=== PATIENT | female | born 1945 | race Two or more races ===

== ENCOUNTER 2024-05-24 08:52 | Outpatient (RCR) | payer MEDICARE, SELFPAY ==
[2024-05-23 15:12] LABS: Collection Type, Urine Voided
[2024-05-23 15:14] LABS: Basophils % (Auto) 1 % (0-2.5); Eosinophils % (Auto) 0 % (0-10); Hematocrit 29.8 % (36.0-46.0); Hemoglobin 9.7 g/dL (12.0-16.0); Immature Granulocytes % (Auto) 5 % (0-0); Immature Granulocytes Auto 0.17 Thou/mm3 (0.00-0.00); Lymphocytes # (Auto) 1.6 Thou/mm3 (1.0-4.8); Lymphocytes % (Auto) 50 % (10-50); Mean Corpuscular HGB Conc 32.6 g/dl (31.0-37.0); Mean Corpuscular Hemoglobin 31.4 pg (25.0-35.0); Mean Corpuscular Volume 96 fL (80-100); Monocytes # (Auto) 0.3 Thou/mm3 (0.0-0.8); Monocytes % (Auto) 10 % (0-12); Neutrophils # (Auto) 1.1 Thou/mm3 (1.8-7.7); Neutrophils % (Auto) 34 % (37-80); Nucleated Red Blood Cell # 0.07 Thou/mm3 (0.00-0.00); Nucleated Red Blood Cell % 2 /100 WBC (0); Platelet Count 204 Thou/mm3 (140-440); Red Blood Count 3.09 Miln/mm3 (4.00-5.20); White Blood Count 3.3 Thou/mm3 (3.6-11.0)
[2024-05-23 15:20] LABS: Bacteria,Urine 1+; Bilirubin,Urine Negative (Negative); Blood,Urine Negative (Negative); Color,Urine Yellow (Lt Yel-Yel); Glucose, Urine Negative (Negative); Ketones,Urine Negative (Negative); Leukocyte Esterase,Urine Positive (Negative); Nitrite,Urine Negative (Negative); PH,Urine 5.5 (5.0-7.0); Protein,Urine 1+ (Neg - Trace); RBC,Urine 8 /hpf (0-3); Specific Gravity,Urine 1.019 (1.001-1.035); Squamous Epithelial Cell,Urine 8 /hpf (0-5); Urobilinogen,Urine Negative mg/dL (0.0-1.0); WBC,Urine 1072 /hpf (0-5)
[2024-05-23 15:38] LABS: Alanine Aminotransferase 71 U/L (10-49); Albumin, Serum 4.1 gm/dL (3.4-4.8); Albumin/Globulin Ratio 1.5 (1.2-2.2); Alkaline Phosphatase 116 U/L (46-116); Anion Gap 7 (7-16); Aspartate Amino Transferase 94 U/L (0-34); BUN/Creatinine Ratio 13 Ratio (12-20); Bilirubin,Total 0.3 mg/dL (0.3-1.2); Blood Urea Nitrogen 18 mg/dL (9-23); Chloride 102 mMol/L (98-107); Creatinine (Component) 1.4 mg/dL (0.6-1.3); Globulin 2.7 gm/dL (2.3-3.5); Glucose 122 mg/dL (74-106); Osmolality,Calculated 273 (275-295); Potassium 3.8 mMol/L (3.4-5.1); Sodium 135 mMol/L (136-145); Thyroid Stimulating Hormone 7.96 uIU/mL (0.55-4.78); Total Protein 6.8 gm/dL (5.7-8.2); eGFR 39 See Note
[2024-05-23 16:02] LABS: Clarity,Urine Cloudy (Clear/Hazy)
== END 2024-06-16 23:59 | disposition home or self-care (01) ==
LOC: SCTC 08:52
PROVIDERS: PCP Internal Medicine; Referring Provider Internal Medicine; Visit Provider Internal Medicine Hematology & Oncology
DX: C22.1 Intrahepatic bile duct carcinoma (principal); Z85.42 Personal history of malignant neoplasm of other parts of uterus; Z90.710 Acquired absence of both cervix and uterus
CPT/HCPCS: 36591; 80053; 81001; 84443; 85025; 96361; 96374; A4216; J0696; J1642; J7030

== ENCOUNTER 2024-07-12 08:07 | Outpatient (RCR) | payer MEDICARE, SELFPAY ==
[2024-06-20 15:53] LABS: Basophils % (Auto) 1 % (0-2.5); Eosinophils # (Auto) 0.1 Thou/mm3 (0.0-0.5); Eosinophils % (Auto) 1 % (0-10); Hematocrit 34.1 % (36.0-46.0); Hemoglobin 11.1 g/dL (12.0-16.0); Immature Granulocytes % (Auto) 0 % (0-0); Immature Granulocytes Auto 0.01 Thou/mm3 (0.00-0.00); Lymphocytes % (Auto) 31 % (10-50); Mean Corpuscular HGB Conc 32.6 g/dl (31.0-37.0); Mean Corpuscular Hemoglobin 31.3 pg (25.0-35.0); Mean Corpuscular Volume 96 fL (80-100); Monocytes # (Auto) 0.7 Thou/mm3 (0.0-0.8); Monocytes % (Auto) 12 % (0-12); Neutrophils # (Auto) 3.4 Thou/mm3 (1.8-7.7); Neutrophils % (Auto) 55 % (37-80); Nucleated Red Blood Cell % 0 /100 WBC (0); Platelet Count 210 Thou/mm3 (140-440); Red Blood Count 3.55 Miln/mm3 (4.00-5.20); White Blood Count 6.2 Thou/mm3 (3.6-11.0)
[2024-06-20 16:14] LABS: Alanine Aminotransferase 15 U/L (10-49); Albumin, Serum 4.5 gm/dL (3.4-4.8); Albumin/Globulin Ratio 1.6 (1.2-2.2); Alkaline Phosphatase 105 U/L (46-116); Anion Gap 10 (7-16); Aspartate Amino Transferase 51 U/L (0-34); BUN/Creatinine Ratio 14 Ratio (12-20); Bilirubin,Total 0.4 mg/dL (0.3-1.2); Blood Urea Nitrogen 17 mg/dL (9-23); Calcium 9.4 mg/dL (8.3-10.6); Calcium (Corrected) 9.4 mg/dL (8.5-10.1); Carbon Dioxide 28.1 mMol/L (20.0-31.0); Chloride 100 mMol/L (98-107); Creatinine (Component) 1.2 mg/dL (0.6-1.3); Globulin 2.8 gm/dL (2.3-3.5); Glucose 127 mg/dL (74-106); Osmolality,Calculated 279 (275-295); Potassium 3.2 mMol/L (3.4-5.1); Sodium 138 mMol/L (136-145); Thyroid Stimulating Hormone 6.59 uIU/mL (0.55-4.78); Total Protein 7.3 gm/dL (5.7-8.2); eGFR 47 See Note
[2024-06-21 11:40] LABS: Free T4 (Free Thyroxine) 1.11 ng/dL (0.89-1.76)
[2024-07-04 15:58] LABS: Basophils % (Auto) 0 % (0-2.5); Eosinophils # (Auto) 0.1 Thou/mm3 (0.0-0.5); Eosinophils % (Auto) 1 % (0-10); Hematocrit 32.3 % (36.0-46.0); Hemoglobin 10.7 g/dL (12.0-16.0); Immature Granulocytes % (Auto) 1 % (0-0); Immature Granulocytes Auto 0.04 Thou/mm3 (0.00-0.00); Lymphocytes # (Auto) 0.7 Thou/mm3 (1.0-4.8); Lymphocytes % (Auto) 8 % (10-50); Mean Corpuscular HGB Conc 33.1 g/dl (31.0-37.0); Mean Corpuscular Hemoglobin 31.2 pg (25.0-35.0); Mean Corpuscular Volume 94 fL (80-100); Monocytes # (Auto) 0.9 Thou/mm3 (0.0-0.8); Monocytes % (Auto) 11 % (0-12); Neutrophils # (Auto) 6.3 Thou/mm3 (1.8-7.7); Neutrophils % (Auto) 79 % (37-80); Nucleated Red Blood Cell % 0 /100 WBC (0); Platelet Count 163 Thou/mm3 (140-440); RDW Standard Deviation 48.3 fL (36.4-46.3); Red Blood Count 3.43 Miln/mm3 (4.00-5.20)
[2024-07-04 16:21] LABS: Alanine Aminotransferase 19 U/L (10-49); Albumin, Serum 4.4 gm/dL (3.4-4.8); Albumin/Globulin Ratio 1.4 (1.2-2.2); Alkaline Phosphatase 128 U/L (46-116); Anion Gap 9 (7-16); Aspartate Amino Transferase 39 U/L (0-34); BUN/Creatinine Ratio 17 Ratio (12-20); Bilirubin,Total 0.6 mg/dL (0.3-1.2); Blood Urea Nitrogen 22 mg/dL (9-23); Calcium 9.4 mg/dL (8.3-10.6); Calcium (Corrected) 9.4 mg/dL (8.5-10.1); Carbon Dioxide 24.7 mMol/L (20.0-31.0); Chloride 98 mMol/L (98-107); Creatinine (Component) 1.3 mg/dL (0.6-1.3); Free T4 (Free Thyroxine) 1.22 ng/dL (0.89-1.76); Globulin 3.2 gm/dL (2.3-3.5); Glucose 94 mg/dL (74-106); Osmolality,Calculated 267 (275-295); Potassium 3.6 mMol/L (3.4-5.1); Sodium 132 mMol/L (136-145); Thyroid Stimulating Hormone 6.74 uIU/mL (0.55-4.78); Total Protein 7.6 gm/dL (5.7-8.2); eGFR 42 See Note
[2024-07-10 09:22] LABS: Basophils % (Auto) 1 % (0-2.5); Eosinophils # (Auto) 0.1 Thou/mm3 (0.0-0.5); Eosinophils % (Auto) 1 % (0-10); Hematocrit 29.2 % (36.0-46.0); Hemoglobin 9.5 g/dL (12.0-16.0); Immature Granulocytes % (Auto) 0 % (0-0); Immature Granulocytes Auto 0.01 Thou/mm3 (0.00-0.00); Lymphocytes # (Auto) 0.4 Thou/mm3 (1.0-4.8); Lymphocytes % (Auto) 11 % (10-50); Mean Corpuscular HGB Conc 32.5 g/dl (31.0-37.0); Mean Corpuscular Hemoglobin 30.7 pg (25.0-35.0); Mean Corpuscular Volume 95 fL (80-100); Monocytes # (Auto) 0.1 Thou/mm3 (0.0-0.8); Monocytes % (Auto) 2 % (0-12); Neutrophils # (Auto) 3.4 Thou/mm3 (1.8-7.7); Neutrophils % (Auto) 84 % (37-80); Nucleated Red Blood Cell % 0 /100 WBC (0); Platelet Count 202 Thou/mm3 (140-440); RDW Standard Deviation 47.4 fL (36.4-46.3); Red Blood Count 3.09 Miln/mm3 (4.00-5.20)
[2024-07-10 09:40] LABS: Alanine Aminotransferase 22 U/L (10-49); Albumin, Serum 3.9 gm/dL (3.4-4.8); Albumin/Globulin Ratio 1.3 (1.2-2.2); Alkaline Phosphatase 123 U/L (46-116); Anion Gap 9 (7-16); Aspartate Amino Transferase 35 U/L (0-34); BUN/Creatinine Ratio 15 Ratio (12-20); Bilirubin,Total 0.6 mg/dL (0.3-1.2); Blood Urea Nitrogen 17 mg/dL (9-23); Calcium 9.2 mg/dL (8.3-10.6); Calcium (Corrected) 9.3 mg/dL (8.5-10.1); Carbon Dioxide 27.5 mMol/L (20.0-31.0); Chloride 99 mMol/L (98-107); Creatinine (Component) 1.1 mg/dL (0.6-1.3); Free T4 (Free Thyroxine) 1.35 ng/dL (0.89-1.76); Glucose 104 mg/dL (74-106); Osmolality,Calculated 271 (275-295); Potassium 3.6 mMol/L (3.4-5.1); Sodium 135 mMol/L (136-145); Thyroid Stimulating Hormone 3.79 uIU/mL (0.55-4.78); Total Protein 6.9 gm/dL (5.7-8.2); eGFR 52 See Note
== END 2024-07-17 23:59 | disposition home or self-care (01) ==
LOC: SCTC 08:07
PROVIDERS: PCP Internal Medicine; Referring Provider Internal Medicine; Visit Provider Internal Medicine Hematology & Oncology
DX: C22.1 Intrahepatic bile duct carcinoma (principal); Z85.42 Personal history of malignant neoplasm of other parts of uterus; Z90.710 Acquired absence of both cervix and uterus; I10 Essential (primary) hypertension; M19.90 Unspecified osteoarthritis, unspecified site
CPT/HCPCS: 36591; 80053; 84439; 84443; 85025; 96367; 96413; 96417; A4216; J1100; J1642; J2405; J3490; J7040; J7050; J9173; J9201

== ENCOUNTER 2024-07-30 13:34 | Outpatient (RCR) | payer MEDICARE, SELFPAY ==
[2024-07-25 16:14] LABS: Basophils % (Auto) 1 % (0-2.5); Eosinophils % (Auto) 1 % (0-10); Hematocrit 29.7 % (36.0-46.0); Hemoglobin 9.7 g/dL (12.0-16.0); Immature Granulocytes % (Auto) 0 % (0-0); Immature Granulocytes Auto 0.01 Thou/mm3 (0.00-0.00); Lymphocytes # (Auto) 0.6 Thou/mm3 (1.0-4.8); Lymphocytes % (Auto) 13 % (10-50); Mean Corpuscular HGB Conc 32.7 g/dl (31.0-37.0); Mean Corpuscular Hemoglobin 31.3 pg (25.0-35.0); Mean Corpuscular Volume 96 fL (80-100); Monocytes # (Auto) 0.7 Thou/mm3 (0.0-0.8); Monocytes % (Auto) 17 % (0-12); Neutrophils # (Auto) 2.9 Thou/mm3 (1.8-7.7); Neutrophils % (Auto) 69 % (37-80); Nucleated Red Blood Cell % 0 /100 WBC (0); Platelet Count 235 Thou/mm3 (140-440); RDW Standard Deviation 51.3 fL (36.4-46.3); White Blood Count 4.3 Thou/mm3 (3.6-11.0)
[2024-07-25 16:39] LABS: Alanine Aminotransferase 13 U/L (10-49); Albumin/Globulin Ratio 1.3 (1.2-2.2); Alkaline Phosphatase 147 U/L (46-116); Anion Gap 9 (7-16); Aspartate Amino Transferase 34 U/L (0-34); BUN/Creatinine Ratio 12 Ratio (12-20); Bilirubin,Total 0.4 mg/dL (0.3-1.2); Blood Urea Nitrogen 16 mg/dL (9-23); Calcium 9.1 mg/dL (8.3-10.6); Calcium (Corrected) 9.1 mg/dL (8.5-10.1); Carbon Dioxide 27.8 mMol/L (20.0-31.0); Chloride 100 mMol/L (98-107); Creatinine (Component) 1.3 mg/dL (0.6-1.3); Glucose 117 mg/dL (74-106); Osmolality,Calculated 276 (275-295); Potassium 3.6 mMol/L (3.4-5.1); Sodium 137 mMol/L (136-145); Thyroid Stimulating Hormone 2.32 uIU/mL (0.55-4.78); eGFR 42 See Note
--- NOTE | 2024-07-30 22:10 | CTCFLWUP_ITS ---
Patient: NAKIA FIELD : 1945 Page 2 of 3 FOLLOW UP NOTE DATE OF SERVICE: 07/30/2024 NAME: NAKIA FIELD ACCOUNT: [id number] : 1945 AGE: 79 INTERVAL HISTORY: Patient is here to follow-up along with her daughter. Patient is doing well have no complaints. Pat jeremie sleeps most of the time per her daughter. Patient does not like to go out or interact and stays mostly in her bedroom. ONCOLOGY HISTORY: DIAGNOSIS: Secondary malignant neoplasm of liver and intrahepatic bile duct [ICD10] C78.7 DATE OF DIAGNOSIS: 06/20/2023 Cholangiocarcinoma STAGE/TNM: Locally advanced hepatocellular cancer TREATMENT HISTORY: Care?Plan Start?Date Cycle Day Intent Durvalumab,?cisplatin?and?gemcitabine?cholangiocarcinoma?regimen?1 12/07/2023 1 Palliative Durvalumab?maintenance?cholangiocarcinoma?regimen?2 07/26/2024 1 28 Maintenance HISTORY OF PRESENT ILLNESS: Nakia Field is a 79-year-old ENG speaking female with history of hypertension as well as arthritis, uterine cancer about 15 years ago, status post hysterectomy at that time has the follow ing oncology history. 05/12/2023: Ms. Field had abdominal ultrasound to evaluate the cause for recurrent UTIs. 06/30/2023: MRI of the abdomen with and without IV contrast 08/12/2023: CT-guided right hepatic lobe biopsy? 09/06/2023: Tumor markers? 09/22/2023: PET CT scan done 09/27/2023: EGD and colonoscopy 10/12/2023: Bilateral breast ultrasound 11/03/2023: CT-guided biopsy of the right lobe liver lesion 11/11/2023: Cancer type ID 12/07/2023: Ms. Field is started on durvalumab, cisplatin and gemcitabine chemotherapy. 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 calcium carbonate-vitamin D3 - 200 mg (500 mg) -400 unit 1 tab Twice a Day 2. conjugated estrogens - 0.625 mg/gram 0.5 gm every 2-3 days 3. Lomotil - 2.5-0.025 mg 1 tab one po four times a day prn diarrhea 4. magnesium oxide - 200 mg magnesium 2 tab Daily 5. Slo-Mag - 1 Daily 6. Synthroid - Daily Medications Last Reconciled by Antonia Marinelli RN on 07/30/2024 ALLERGIES: ciprofloxacin REVIEW OF SYSTEMS: A complete 14-point review of systems was performed and is negative except as noted in interval histo ry. PHYSICAL EXAMINATION: VITAL SIGNS: Temperature?99, B/P?113/70, Oxygen?Saturation?98% Weight?130?lbs (Change?since?07/26/24:?- 1.2?lbs) PAIN: 0 - No pain ECOG Performance Status: 3 - Symptomatic; limited self-care; spends >50% of time in bed, not bedridde n EYE: Conjunctivae is white MOUTH: Oral cavity is dry. CHEST: Clear to auscultation. No wheezes or rales audible. CARDIAC: Rhythm regular, no murmurs or gallops present. ABDOMEN: Soft. No hepatomegaly. No splenomegaly. No masses palpable in the right upper quadrant of t he abdomen EXTREMITIES: No pedal edema or cyanosis. LABORATORY DATA: I have personally reviewed and interpreted each of the patient?s relevant lab tests, abnormal finding s are below: Date 07/25/24 ??GLUCOSE,RANDOM?(mg/dL) 117?H ??BLOOD?UREA?NITROGEN?(mg/dL) 16 ??CREATININE?(mg/dL) 1.30 ??SODIUM?(mmol/L) 137 ??POTASSIUM?(mmol/L) 3.6 ??CHLORIDE?(mmol/L) 100 ??CrCl?(CandG)?(ml/min) 33.94 ??AST/SGOT?(Unit/L) 34 ??ALT/SGPT?(Unit/L) 13 ??ALKALINE?PHOSPHATASE?(Unit/L) 147?H ??BILIRUBIN,?TOTAL?(mg/dL) 0.4 ??PROTEIN?TOTAL?(gm/dl) 7.0 ??ALBUMIN,?SERUM?(gm/dl) 4.0 ??GLOBULIN?(gm/dl) 3.0 ??ALBUMIN/GLOBULIN?RATIO 1.3 ??CALCIUM,?SERUM?(mg/dL) 9.1 ??CALCIUM?SERUM?(CORRECTED)?(mg/dL) 9.1 ASSESSMENT/PLAN: #1 cholangiocarcinoma Patient has metastatic cholangiocarcinoma She was initially started on cisplatin gemcitabine and durvalumab Cisplatin held after patient have symptoms concerning for worsening neuropathy that his dizziness and vertigo symptoms Patient completed chemoembolization. Most likely cholangiocarcinoma confined to the liver. Tumor markers are in the normal range. PET/CT scan shows hypermetabolic liver lesion. Plan Continue durvalumab MRI is already ordered we will follow-up on the results #2 history of uterine cancer about 50 years ago. Ms. Field had hysterectomy at that time. #3 hypertension well-controlled follow with PCP. #4 osteoarthritis stable follow-up with PCP. #5 dementia like symptoms Will get a brain MRI B12 folic acid iron studies vitamin D level ORDERS: Brain MRI B12 folic acid iron studies 2 to 3 weeks with the results RETURN TO CLINIC: BILLING AND COMPLIANCE: I reviewed external records from providers outside my specialty as summarized above. I spent a total of 50 minutes on this patient?s care on the day of their visit excluding time spent related to any bi lled procedures. This time includes time spent with the patient as well as time spent documenting in the medical record, reviewing patients records and tests, obtaining history, placing orders, communi cating with other healthcare professionals, counseling the patient, family or caregiver, and/or care coordination for the diagnoses above. Electronically Signed by: David Austin MD T: 10:07 PM CC: PCP: Félix Delgado Referring: Félix Delgado This document was completed utilizing speech recognition software. Grammatical errors, random word in sertions, pronoun errors, and incomplete sentences are an occasional consequence of this system due t o software limitations, ambient noise, and hardware issues. Any formal questions or concerns about th e content, text or information contained within the body of this dictation should be directly address ed to the provider for clarification.
== END 2024-08-17 23:59 | disposition home or self-care (01) ==
LOC: SCTC 13:34
PROVIDERS: PCP Internal Medicine; Referring Provider Internal Medicine; Visit Provider Internal Medicine Hematology & Oncology
DX: Z51.11 Encounter for antineoplastic chemotherapy (principal); C22.1 Intrahepatic bile duct carcinoma; Z85.42 Personal history of malignant neoplasm of other parts of uterus; Z90.710 Acquired absence of both cervix and uterus; I10 Essential (primary) hypertension; M19.90 Unspecified osteoarthritis, unspecified site
CPT/HCPCS: 36591; 80053; 84443; 85025; 96367; 96413; 99212; A4216; J1642; J2405; J9173; G0463

== ENCOUNTER → 2024-07-30 | Outpatient (CLI) | payer MEDICARE, SELFPAY ==
[2024-07-30 16:40] LABS: Thyroid Stimulating Hormone 4.27 uIU/mL (0.55-4.78)
[2024-07-30 19:22] LABS: Vitamin B12 461 pg/mL (211-911)
[2024-07-30 20:56] LABS: Ferritin 229 ng/mL (7.3-270.7); Iron 39 mcg/dL (50-170); Percent Iron Saturation 12 % (20-55); Total Iron Binding Capacity 310 mcg/dL (250-425); Unsaturated Iron Binding 271 (225-295)
[2024-08-06 06:56] LABS: T3,Total* 128 ng/dL (76-181); Vitamin D, 25-OH, D2 10 ng/mL; Vitamin D, 25-OH, D3 19 ng/mL; Vitamin D, 25-OH, Total 29 ng/mL (30-100)
== END | disposition home or self-care (01) ==
LOC: SCTO 15:07
PROVIDERS: PCP Internal Medicine; Referring Provider Internal Medicine Hematology & Oncology; Visit Provider Internal Medicine Hematology & Oncology
DX: C78.7 Secondary malignant neoplasm of liver and intrahepatic bile duct (principal)
CPT/HCPCS: 36415; 82306; 82607; 82728; 82746; 83540; 83550; 84443; 84480

== ENCOUNTER → 2024-08-22 | Outpatient (CLI) | payer MEDICARE, SELFPAY ==
--- NOTE | 2024-08-22 08:45 | XR_ITS ---
Examination: MRI of brain without intravenous contrast. MRI brain with intravenous contrast. Date and time of exam:August 22, 2024 0853 hours Comparison June 07, 2018 INDICATIONS: Diagnosis secondary malignant neoplasm liver and intrahepatic bile ducts, headaches blurred vision beginning one year ago Technique: Multiple axial and sagittal images of the brain to been obtained. Siemens high-resolution 1.52 [place]ita short bore scanner utilized. Sagittal sections, T1 weighted images, TR 500, TE 14, are performed. Axial sections proton-density and T2-weighted images have been obtained. Inversion recovery axial images, TR 9260, TE 111, TR 2500. Diffusion weighted images, axial sections, TR 4800, TE 128, B value 1000. Axial sections, ADC map, TR 4800, TE 128. Axial and coronal images were also obtained post 11 cc gadolinium administered intravenously. Findings:: Enlargement of the sella turcica is not present. The optic chiasm and infundibular stalk are not remarkable. There is no localized enlargement of the medulla or julia. Fourth ventricle and cerebellar tonsils appear normal in position. No subacute area of hemorrhage density is seen. Fourth ventricle is midline. Mass in the cerebellopontine angle region is not evident. 7th and 8th nerve complexes exhibit symmetry Globes are symmetrical Orbital musculature including medial lateral rectus muscles do not exhibit abnormality Increased white matter signal is moderate Effacement of the cortical sulcal markings is not identified. Mass effect upon the ventricular system is not identified. Diffusion-weighted images demonstrate no focus of restricted diffusion Contrast images demonstrate no abnormal enhancing cerebellar or cerebral lesions Impression: Negative for acute hemorrhage mass effect or midline shift No acute infarct Moderate chronic microvascular white matter change No abnormal enhancing cerebellar or cerebral lesions
== END | disposition home or self-care (01) ==
LOC: SMRI 08:03
PROVIDERS: PCP Internal Medicine; Referring Provider Internal Medicine Hematology & Oncology; Visit Provider Internal Medicine Hematology & Oncology
DX: R90.82 White matter disease, unspecified (principal); C78.7 Secondary malignant neoplasm of liver and intrahepatic bile duct
CPT/HCPCS: 70553; A9579

== ENCOUNTER 2024-09-12 09:14 | Outpatient (RCR) | payer MEDICARE, SELFPAY ==
[2024-08-22 09:05] LABS: Basophils % (Auto) 1 % (0-2.5); Eosinophils # (Auto) 0.2 Thou/mm3 (0.0-0.5); Eosinophils % (Auto) 3 % (0-10); Hematocrit 32.3 % (36.0-46.0); Hemoglobin 10.4 g/dL (12.0-16.0); Immature Granulocytes % (Auto) 0 % (0-0); Immature Granulocytes Auto 0.01 Thou/mm3 (0.00-0.00); Lymphocytes % (Auto) 19 % (10-50); Mean Corpuscular HGB Conc 32.2 g/dl (31.0-37.0); Mean Corpuscular Hemoglobin 30.1 pg (25.0-35.0); Mean Corpuscular Volume 93 fL (80-100); Monocytes # (Auto) 0.6 Thou/mm3 (0.0-0.8); Monocytes % (Auto) 12 % (0-12); Neutrophils # (Auto) 3.5 Thou/mm3 (1.8-7.7); Neutrophils % (Auto) 66 % (37-80); Nucleated Red Blood Cell % 0 /100 WBC (0); Platelet Count 233 Thou/mm3 (140-440); RDW Standard Deviation 46.1 fL (36.4-46.3); Red Blood Count 3.46 Miln/mm3 (4.00-5.20); White Blood Count 5.3 Thou/mm3 (3.6-11.0)
[2024-08-22 09:29] LABS: Alanine Aminotransferase 10 U/L (10-49); Albumin, Serum 3.9 gm/dL (3.4-4.8); Albumin/Globulin Ratio 1.2 (1.2-2.2); Alkaline Phosphatase 158 U/L (46-116); Anion Gap 10 (7-16); Aspartate Amino Transferase 26 U/L (0-34); BUN/Creatinine Ratio 14 Ratio (12-20); Bilirubin,Total 0.5 mg/dL (0.3-1.2); Blood Urea Nitrogen 15 mg/dL (9-23); Calcium 9.2 mg/dL (8.3-10.6); Calcium (Corrected) 9.3 mg/dL (8.5-10.1); Carbon Dioxide 25.9 mMol/L (20.0-31.0); Chloride 104 mMol/L (98-107); Creatinine (Component) 1.1 mg/dL (0.6-1.3); Globulin 3.3 gm/dL (2.3-3.5); Glucose 100 mg/dL (74-106); Osmolality,Calculated 280 (275-295); Potassium 3.2 mMol/L (3.4-5.1); Sodium 140 mMol/L (136-145); Thyroid Stimulating Hormone 2.19 uIU/mL (0.55-4.78); Total Protein 7.2 gm/dL (5.7-8.2); eGFR 52 See Note
[2024-08-29 14:15] LABS: Basophils % (Auto) 1 % (0-2.5); Eosinophils # (Auto) 0.1 Thou/mm3 (0.0-0.5); Eosinophils % (Auto) 1 % (0-10); Hematocrit 32.8 % (36.0-46.0); Hemoglobin 10.6 g/dL (12.0-16.0); Immature Granulocytes % (Auto) 0 % (0-0); Immature Granulocytes Auto 0.01 Thou/mm3 (0.00-0.00); Lymphocytes % (Auto) 19 % (10-50); Mean Corpuscular HGB Conc 32.3 g/dl (31.0-37.0); Mean Corpuscular Hemoglobin 29.9 pg (25.0-35.0); Mean Corpuscular Volume 93 fL (80-100); Monocytes # (Auto) 0.5 Thou/mm3 (0.0-0.8); Monocytes % (Auto) 10 % (0-12); Neutrophils # (Auto) 3.5 Thou/mm3 (1.8-7.7); Neutrophils % (Auto) 69 % (37-80); Nucleated Red Blood Cell % 0 /100 WBC (0); Platelet Count 223 Thou/mm3 (140-440); RDW Standard Deviation 46.1 fL (36.4-46.3); Red Blood Count 3.54 Miln/mm3 (4.00-5.20)
[2024-08-29 14:43] LABS: Free T3 2.4 pg/mL (2.3-4.2)
[2024-08-29 14:46] LABS: Folate 13.22 ng/mL (>5.38); Vitamin B12 527 pg/mL (211-911)
[2024-08-29 14:49] LABS: Ferritin 77 ng/mL (7.3-270.7); Iron 45 mcg/dL (50-170); Percent Iron Saturation 14 % (20-55); Total Iron Binding Capacity 306 mcg/dL (250-425); Unsaturated Iron Binding 261 (225-295)
[2024-08-29 14:53] LABS: Alanine Aminotransferase < 7 U/L (10-49); Albumin, Serum 3.7 gm/dL (3.4-4.8); Albumin/Globulin Ratio 1.2 (1.2-2.2); Alkaline Phosphatase 145 U/L (46-116); Anion Gap 8 (7-16); Aspartate Amino Transferase 22 U/L (0-34); BUN/Creatinine Ratio 15 Ratio (12-20); Bilirubin,Total 0.4 mg/dL (0.3-1.2); Blood Urea Nitrogen 18 mg/dL (9-23); Calcium (Corrected) 9.2 mg/dL (8.5-10.1); Carbon Dioxide 26.6 mMol/L (20.0-31.0); Chloride 101 mMol/L (98-107); Creatinine (Component) 1.2 mg/dL (0.6-1.3); Globulin 3.2 gm/dL (2.3-3.5); Glucose 147 mg/dL (74-106); Osmolality,Calculated 276 (275-295); Potassium 3.3 mMol/L (3.4-5.1); Sodium 136 mMol/L (136-145); Thyroid Stimulating Hormone 1.52 uIU/mL (0.55-4.78); Total Protein 6.9 gm/dL (5.7-8.2); eGFR 47 See Note
--- NOTE | 2024-09-16 15:54 | CTCFLWUP_ITS ---
Patient: NAKIA FIELD : 1945 Page 6 of 8 FOLLOW UP NOTE DATE OF SERVICE: 08/30/2024 NAME: NAKIA FIELD ACCOUNT: [id number] : 1945 AGE: 79 INTERVAL HISTORY: Patient is here to follow-up along with her daughter. Patient is doing well have no complaints. Patient sleeps most of the time per her daughter. Patient does not like to go out or interact and stays mostly in her bedroom. ONCOLOGY HISTORY: DIAGNOSIS: Secondary malignant neoplasm of liver and intrahepatic bile duct [ICD10] C78.7 DATE OF DIAGNOSIS: 06/20/2023 Cholangiocarcinoma STAGE/TNM: Locally advanced hepatocellular cancer TREATMENT HISTORY: Care?Plan Start?Date Cycle Day Intent Durvalumab,?cisplatin?and?gemcitabine?cholangiocarcinoma?regimen?1 12/07/2023 1 Palliative Durvalumab?maintenance?cholangiocarcinoma?regimen?2 07/26/2024 1 28 Maintenance HISTORY OF PRESENT ILLNESS: Nakia Field is a 79-year-old ENG speaking female with history of hypertension as well as arthritis, uterine cancer about 15 years ago, status post hysterectomy at that time has the following oncology history. 05/12/2023: Ms. Field had abdominal ultrasound to evaluate the cause for recurrent UTIs. 06/30/2023: MRI of the abdomen with and without IV contrast 08/12/2023: CT-guided right hepatic lobe biopsy? 09/06/2023: Tumor markers? 09/22/2023: PET CT scan done 09/27/2023: EGD and colonoscopy 10/12/2023: Bilateral breast ultrasound 11/03/2023: CT-guided biopsy of the right lobe liver lesion 11/11/2023: Cancer type ID 12/07/2023: Ms. Field is started on durvalumab, cisplatin and gemcitabine chemotherapy. 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 Tobacco?Use:?Denies ETOH?Use:?Denies Drug?Note:?Denies Social History Note:?Lives alone - daughters stay frequently [employer] HISTORY: Menarche?-?Age:?12 Menopause:?1975 :?6 Live?Births:?4 Age?1st?:?24 MEDICATIONS: 1. calcium carbonate-vitamin D3 - 200 mg (500 mg) -400 unit 1 tab Twice a Day 2. conjugated estrogens - 0.625 mg/gram 0.5 gm every 2-3 days 3. levothyroxine - 50 mcg 1 Capsule Daily 4. Lomotil - 2.5-0.025 mg 1 tab one po four times a day prn diarrhea 5. magnesium oxide - 200 mg magnesium 2 tab Daily 6. Slo-Mag - 1 Daily Medications Last Reconciled by Britni Barros MA on 08/30/2024 ALLERGIES: ciprofloxacin REVIEW OF SYSTEMS: A complete 14-point review of systems was performed and is negative except as noted in interval history. PHYSICAL EXAMINATION: VITAL SIGNS: Temperature?98.2, B/P?138/78, Oxygen?Saturation?97% Weight?132.4?lbs (Change?since?08/29/24:?2.4?lbs) PAIN: 0 - No pain EYE: Conjunctivae is white MOUTH: Oral cavity is dry. CHEST: Clear to auscultation. No wheezes or rales audible. CARDIAC: Rhythm regular, no murmurs or gallops present. ABDOMEN: Soft. No hepatomegaly. No splenomegaly. No masses palpable in the right upper quadrant of the abdomen EXTREMITIES: No pedal edema or cyanosis. LABORATORY DATA: I have personally reviewed and interpreted each of the patient?s relevant lab tests, abnormal findings are below: Date 08/29/24 ??WHITE?BLOOD?COUNT?(Thou/mm3) 5.0 ??RED?BLOOD?COUNT?(Miln/mm3) 3.54?L ??HEMOGLOBIN?(gm/dl) 10.6?L ??HEMATOCRIT?(%) 32.8?L ??PLATELET?COUNT?(Thou/mm3) 223 ??NEUTROPHILS?%,?AUTO?(%) 69 ??LYMPH?%,?AUTO?(%) 19 ??NEUTROPHILS,?AUTO?(Thou/mm3) 3.5 Mri 08/22/2024 Negative for acute hemorrhage mass effect or midline shift No acute infarct Moderate chronic microvascular white matter change No abnormal enhancing cerebellar or cerebral lesions 08/27/2024 ASSESSMENT/PLAN: #1 cholangiocarcinoma Patient has metastatic cholangiocarcinoma She was initially started on cisplatin gemcitabine and durvalumab Cisplatin held after patient have symptoms concerning for worsening neuropathy that his dizziness and vertigo symptoms Patient completed chemoembolization. Most likely cholangiocarcinoma confined to the liver. Tumor markers are in the normal range. PET/CT scan shows hypermetabolic liver lesion. Ct scan shows persistant lesion but no progress Cotn durvalumab and follow on markers . Will repeat scan in 2 months #2 history of uterine cancer about 50 years ago. Ms. Field had hysterectomy at that time. #3 hypertension well-controlled follow with PCP. #4 osteoarthritis stable follow-up with PCP. #5 dementia like symptoms- mri shows microvascular changes . no masses or bleeding or ischameia B12 folic acid iron studies vitamin D ORDERS: Bc,cmp,afp,ca19-9 RETURN TO CLINIC: 2 months BILLING AND COMPLIANCE: I reviewed external records from providers outside my specialty as summarized above. I spent a total of 50 minutes on this patient?s care on the day of their visit excluding time spent related to any billed procedures. This time includes time spent with the patient as well as time spent documenting in the medical record, reviewing patients records and tests, obtaining history, placing orders, communicating with other healthcare professionals, counseling the patient, family or caregiver, and/or care coordination for the diagnoses above. Electronically Signed by: David Austin MD T: 3:52 PM CC: PCP: David Austin Referring: David Austin This document was completed utilizing speech recognition software. Grammatical errors, random word insertions, pronoun errors, and incomplete sentences are an occasional consequence of this system due to software limitations, ambient noise, and hardware issues. Any formal questions or concerns about the content, text or information contained within the body of this dictation should be directly addressed to the provider for clarification.
== END 2024-09-14 23:59 | disposition home or self-care (01) ==
LOC: SCTC 09:14
PROVIDERS: PCP Internal Medicine; Referring Provider Internal Medicine Hematology & Oncology; Visit Provider Internal Medicine Hematology & Oncology
DX: Z51.11 Encounter for antineoplastic chemotherapy (principal); C22.1 Intrahepatic bile duct carcinoma; Z85.42 Personal history of malignant neoplasm of other parts of uterus; I10 Essential (primary) hypertension; Z90.710 Acquired absence of both cervix and uterus; M19.90 Unspecified osteoarthritis, unspecified site
CPT/HCPCS: 36591; 80053; 82607; 82728; 82746; 83540; 83550; 84443; 84481; 85025; 96367; 96413; 99212; A4216; J1642; J2405; J7050; J9173; G0463

== ENCOUNTER 2024-09-20 09:05 | Outpatient (RCR) | payer MEDICARE, SELFPAY ==
[2024-09-19 12:18] LABS: Basophils % (Auto) 1 % (0-2.5); Eosinophils # (Auto) 0.1 Thou/mm3 (0.0-0.5); Eosinophils % (Auto) 2 % (0-10); Hematocrit 35.8 % (36.0-46.0); Hemoglobin 11.4 g/dL (12.0-16.0); Immature Granulocytes % (Auto) 0 % (0-0); Immature Granulocytes Auto 0.01 Thou/mm3 (0.00-0.00); Lymphocytes # (Auto) 1.4 Thou/mm3 (1.0-4.8); Lymphocytes % (Auto) 27 % (10-50); Mean Corpuscular HGB Conc 31.8 g/dl (31.0-37.0); Mean Corpuscular Hemoglobin 28.7 pg (25.0-35.0); Mean Corpuscular Volume 90 fL (80-100); Monocytes # (Auto) 0.5 Thou/mm3 (0.0-0.8); Monocytes % (Auto) 10 % (0-12); Neutrophils # (Auto) 3.1 Thou/mm3 (1.8-7.7); Neutrophils % (Auto) 60 % (37-80); Nucleated Red Blood Cell % 0 /100 WBC (0); Platelet Count 201 Thou/mm3 (140-440); RDW Standard Deviation 45.1 fL (36.4-46.3); Red Blood Count 3.97 Miln/mm3 (4.00-5.20); White Blood Count 5.2 Thou/mm3 (3.6-11.0)
[2024-09-19 12:56] LABS: Alanine Aminotransferase 10 U/L (10-49); Albumin, Serum 3.9 gm/dL (3.4-4.8); Albumin/Globulin Ratio 1.2 (1.2-2.2); Alkaline Phosphatase 141 U/L (46-116); Anion Gap 10 (7-16); Aspartate Amino Transferase 41 U/L (0-34); BUN/Creatinine Ratio 13 Ratio (12-20); Bilirubin,Total 0.4 mg/dL (0.3-1.2); Blood Urea Nitrogen 13 mg/dL (9-23); Calcium 9.4 mg/dL (8.3-10.6); Calcium (Corrected) 9.5 mg/dL (8.5-10.1); Carbon Dioxide 26.8 mMol/L (20.0-31.0); Chloride 103 mMol/L (98-107); Globulin 3.3 gm/dL (2.3-3.5); Glucose 92 mg/dL (74-106); Osmolality,Calculated 279 (275-295); Potassium 3.7 mMol/L (3.4-5.1); Sodium 140 mMol/L (136-145); Thyroid Stimulating Hormone 2.36 uIU/mL (0.55-4.78); Total Protein 7.2 gm/dL (5.7-8.2); eGFR 58 See Note
== END 2024-10-15 23:59 | disposition home or self-care (01) ==
LOC: SCTC 09:05
PROVIDERS: PCP Internal Medicine; Referring Provider Internal Medicine; Visit Provider Internal Medicine Hematology & Oncology
DX: Z51.11 Encounter for antineoplastic chemotherapy (principal); C22.1 Intrahepatic bile duct carcinoma; Z85.42 Personal history of malignant neoplasm of other parts of uterus; Z90.710 Acquired absence of both cervix and uterus; I10 Essential (primary) hypertension; F03.90 Unspecified dementia, unspecified severity, without behavioral disturbance, psychotic disturbance, mood disturbance, and anxiety; M19.90 Unspecified osteoarthritis, unspecified site
CPT/HCPCS: 36591; 80053; 84443; 85025; 96367; 96413; A4216; J1642; J2405; J7050; J9173

== ENCOUNTER → 2024-10-08 | Outpatient (BNVA) | payer MEDICARE, SELFPAY | END | disposition home or self-care (01) | PROVIDERS: PCP Internal Medicine; Referring Provider Internal Medicine; Visit Provider Urology | DX: N39.46 Mixed incontinence (principal); I12.9 Hypertensive chronic kidney disease with stage 1 through stage 4 chronic kidney disease, or unspecified chronic kidney disease; N18.2 Chronic kidney disease, stage 2 (mild); M79.7 Fibromyalgia; E03.9 Hypothyroidism, unspecified; E78.2 Mixed hyperlipidemia; C22.9 Malignant neoplasm of liver, not specified as primary or secondary; Z92.21 Personal history of antineoplastic chemotherapy; Z92.3 Personal history of irradiation | CPT/HCPCS: 81003; 99212; G0463 ==

== ENCOUNTER 2024-11-14 15:24 | Outpatient (RCR) | payer MEDICARE, SELFPAY ==
--- NOTE | 2024-10-16 22:26 | CTCFLWUP_ITS ---
Patient: NAKIA FIELD : 1945 Page 6 of 8 FOLLOW UP NOTE DATE OF SERVICE: 10/16/2024 NAME: NAKIA FIELD ACCOUNT: [id number] : 1945 AGE: 79 INTERVAL HISTORY: Patient is here to follow-up along with her daughter. Patient have mild discomfort in the right upper quadrant. Patient is not taking anything for pain. Patient sleeps most of the time per her daughter. Patient does not like to go out or interact and stays mostly in her bedroom. ONCOLOGY HISTORY: DIAGNOSIS: Secondary malignant neoplasm of liver and intrahepatic bile duct [ICD10] C78.7 DATE OF DIAGNOSIS: 06/20/2023 Cholangiocarcinoma STAGE/TNM: Locally advanced hepatocellular cancer TREATMENT HISTORY: Care?Plan Start?Date Cycle Day Intent Durvalumab,?cisplatin?and?gemcitabine?cholangiocarcinoma?regimen?1 12/07/2023 1 Palliative Durvalumab?maintenance?cholangiocarcinoma?regimen?2 07/26/2024 1 28 Maintenance HISTORY OF PRESENT ILLNESS: Nakia Field is a 79-year-old ENG speaking female with history of hypertension as well as arthritis, uterine cancer about 15 years ago, status post hysterectomy at that time has the following oncology history. 05/12/2023: Ms. Field had abdominal ultrasound to evaluate the cause for recurrent UTIs. 06/30/2023: MRI of the abdomen with and without IV contrast 08/12/2023: CT-guided right hepatic lobe biopsy? 09/06/2023: Tumor markers? 09/22/2023: PET CT scan done 09/27/2023: EGD and colonoscopy 10/12/2023: Bilateral breast ultrasound 11/03/2023: CT-guided biopsy of the right lobe liver lesion 11/11/2023: Cancer type ID 12/07/2023: Ms. Field is started on durvalumab, cisplatin and gemcitabine chemotherapy. 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 Education?Level:?Completed High School Marital?Status:? Tobacco?Use:?Denies ETOH?Use:?Denies Drug?Note:?Denies Social History Note:?Lives alone - daughters stay frequently [employer] HISTORY: Menarche?-?Age:?12 Menopause:?1975 :?6 Live?Births:?4 Age?1st?:?24 MEDICATIONS: 1. antacid Extra-Strength - 500 mg Twice a Day 2. levothyroxine - 50 mcg 1 Capsule Daily 3. Lomotil - 2.5-0.025 mg 1 tab one po four times a day prn diarrhea 4. magnesium oxide - 200 mg magnesium 2 tab Daily 5. megestrol - 400 mg/10 mL (40 mg/mL) 10 mL Daily 6. prochlorperazine - 10 mg 1 tab Daily 7. sodium bicarbonate (antacid) - 325 mg tab As directed 8. Zofran - 8 mg 1 tab As needed Medications Last Reconciled by Jessica Fleming MA on 10/16/2024 ALLERGIES: ciprofloxacin REVIEW OF SYSTEMS: A complete 14-point review of systems was performed and is negative except as noted in interval history. PHYSICAL EXAMINATION: VITAL SIGNS: Temperature?99, B/P?132/79, Oxygen?Saturation?97% Weight?130.2?lbs (Change?since?09/20/24:?0.4?lbs) PAIN: 0 - No pain ECOG Performance Status: 3 - Symptomatic; limited self-care; spends >50% of time in bed, not bedridden EYE: Conjunctivae is white MOUTH: Oral cavity is dry. CHEST: Clear to auscultation. No wheezes or rales audible. CARDIAC: Rhythm regular, no murmurs or gallops present. ABDOMEN: Soft. No hepatomegaly. No splenomegaly. No masses palpable in the right upper quadrant of the abdomen EXTREMITIES: No pedal edema or cyanosis. LABORATORY DATA: I have personally reviewed and interpreted each of the patient?s relevant lab tests, abnormal findings are below: Date 08/29/24 09/19/24 ??WHITE?BLOOD?COUNT?(Thou/mm3) 5.0 5.2 ??RED?BLOOD?COUNT?(Miln/mm3) 3.54?L 3.97?L ??HEMOGLOBIN?(gm/dl) 10.6?L 11.4?L ??HEMATOCRIT?(%) 32.8?L 35.8?L ??PLATELET?COUNT?(Thou/mm3) 223 201 ??NEUTROPHILS?%,?AUTO?(%) 69 60 ??LYMPH?%,?AUTO?(%) 19 27 ??NEUTROPHILS,?AUTO?(Thou/mm3) 3.5 3.1 ??GLUCOSE,RANDOM?(mg/dL) ? 92 ??BLOOD?UREA?NITROGEN?(mg/dL) ? 13 ??CREATININE?(mg/dL) ? 1.00 ??SODIUM?(mmol/L) ? 140 ??POTASSIUM?(mmol/L) ? 3.7 ??CHLORIDE?(mmol/L) ? 103 ??CrCl?(CandG)?(ml/min) ? 43.59 ??AST/SGOT?(Unit/L) ? 41?H ??ALT/SGPT?(Unit/L) ? 10 ??ALKALINE?PHOSPHATASE?(Unit/L) ? 141?H ??BILIRUBIN,?TOTAL?(mg/dL) ? 0.4 ??PROTEIN?TOTAL?(gm/dl) ? 7.2 ??ALBUMIN,?SERUM?(gm/dl) ? 3.9 ??GLOBULIN?(gm/dl) ? 3.3 ??ALBUMIN/GLOBULIN?RATIO ? 1.2 ??CALCIUM,?SERUM?(mg/dL) ? 9.4 ??CALCIUM?SERUM?(CORRECTED)?(mg/dL) ? 9.5 ??TOTAL?IRON?BINDING?CAP?(S*)?(mcg/dL) 306 ? ??UNBOUND?IBC?(mcg/dL) 261 ? ASSESSMENT/PLAN: #1 cholangiocarcinoma Patient has metastatic cholangiocarcinoma She was initially started on cisplatin gemcitabine and durvalumab Cisplatin held after patient have symptoms concerning for worsening neuropathy that his dizziness and vertigo symptoms Patient completed chemoembolization. Most likely cholangiocarcinoma confined to the liver. Tumor markers are in the normal range. PET/CT scan shows hypermetabolic liver lesion. Ct scan shows persistant lesion but no progress As per patient interventional radiologist told that lesion has decreased by 80% Cotn durvalumab and follow on markers . As patient is having right upper quadrant pain will repeat MRI liver MRI liver with and without contrast ordered but patient want to do imaging at [facility] #2 history of uterine cancer about 50 years ago. Ms. Field had hysterectomy at that time. #3 hypertension well-controlled follow with PCP. #4 osteoarthritis stable follow-up with PCP. #5 dementia like symptoms- mri shows microvascular changes . no masses or bleeding or ischameia B12 folic acid iron studies vitamin D ORDERS: Order # Description [id number] Comprehensive Metabolic Panel - 12 + CBC with Auto Diff + AFP [id number] MRI + Abdomen + With W/O Contrast [id number] MD Follow Up 4 Week Review of the liver ordered 3 to 4 weeks RETURN TO CLINIC: 3 to 4 weeks BILLING AND COMPLIANCE: I reviewed external records from providers outside my specialty as summarized above. I spent a total of 50 minutes on this patient?s care on the day of their visit excluding time spent related to any billed procedures. This time includes time spent with the patient as well as time spent documenting in the medical record, reviewing patients records and tests, obtaining history, placing orders, communicating with other healthcare professionals, counseling the patient, family or caregiver, and/or care coordination for the diagnoses above. Electronically Signed by: {Object.Sanct_ID*[email or web address]@M}, {Object.Sanct_ID*[email or web address]@U} D: {Object.Sanct_Date} T: {Object.Sanct_Time} CC: PCP: Félix Delgado Referring: Félix Delgado This document was completed utilizing speech recognition software. Grammatical errors, random word insertions, pronoun errors, and incomplete sentences are an occasional consequence of this system due to software limitations, ambient noise, and hardware issues. Any formal questions or concerns about the content, text or information contained within the body of this dictation should be directly addressed to the provider for clarification.
[2024-10-17 09:48] LABS: Basophils % (Auto) 0 % (0-2.5); Eosinophils # (Auto) 0.1 Thou/mm3 (0.0-0.5); Eosinophils % (Auto) 1 % (0-10); Hematocrit 32.9 % (36.0-46.0); Hemoglobin 10.8 g/dL (12.0-16.0); Immature Granulocytes % (Auto) 0 % (0-0); Immature Granulocytes Auto 0.02 Thou/mm3 (0.00-0.00); Lymphocytes # (Auto) 1.1 Thou/mm3 (1.0-4.8); Lymphocytes % (Auto) 19 % (10-50); Mean Corpuscular HGB Conc 32.8 g/dl (31.0-37.0); Mean Corpuscular Hemoglobin 28.6 pg (25.0-35.0); Mean Corpuscular Volume 87 fL (80-100); Monocytes # (Auto) 0.6 Thou/mm3 (0.0-0.8); Monocytes % (Auto) 10 % (0-12); Neutrophils # (Auto) 4.1 Thou/mm3 (1.8-7.7); Neutrophils % (Auto) 70 % (37-80); Nucleated Red Blood Cell % 0 /100 WBC (0); Platelet Count 194 Thou/mm3 (140-440); RDW Standard Deviation 43.8 fL (36.4-46.3); Red Blood Count 3.78 Miln/mm3 (4.00-5.20); White Blood Count 5.9 Thou/mm3 (3.6-11.0)
[2024-10-17 10:31] LABS: Alanine Aminotransferase 8 U/L (10-49); Albumin, Serum 3.8 gm/dL (3.4-4.8); Albumin/Globulin Ratio 1.4 (1.2-2.2); Alkaline Phosphatase 133 U/L (46-116); Anion Gap 8 (7-16); Aspartate Amino Transferase 35 U/L (0-34); BUN/Creatinine Ratio 14 Ratio (12-20); Bilirubin,Total 0.3 mg/dL (0.3-1.2); Blood Urea Nitrogen 14 mg/dL (9-23); Calcium 8.9 mg/dL (8.3-10.6); Calcium (Corrected) 9.1 mg/dL (8.5-10.1); Carbon Dioxide 26.2 mMol/L (20.0-31.0); Chloride 105 mMol/L (98-107); Globulin 2.8 gm/dL (2.3-3.5); Glucose 114 mg/dL (74-106); Osmolality,Calculated 279 (275-295); Potassium 3.8 mMol/L (3.4-5.1); Sodium 139 mMol/L (136-145); Thyroid Stimulating Hormone 1.97 uIU/mL (0.55-4.78); Total Protein 6.6 gm/dL (5.7-8.2); eGFR 58 See Note
[2024-11-14 16:14] LABS: Basophils % (Auto) 0 % (0-2.5); Eosinophils # (Auto) 0.1 Thou/mm3 (0.0-0.5); Eosinophils % (Auto) 2 % (0-10); Hematocrit 35.1 % (36.0-46.0); Hemoglobin 11.5 g/dL (12.0-16.0); Immature Granulocytes % (Auto) 0 % (0-0); Immature Granulocytes Auto 0.01 Thou/mm3 (0.00-0.00); Lymphocytes # (Auto) 1.2 Thou/mm3 (1.0-4.8); Lymphocytes % (Auto) 17 % (10-50); Mean Corpuscular HGB Conc 32.8 g/dl (31.0-37.0); Mean Corpuscular Hemoglobin 28.3 pg (25.0-35.0); Mean Corpuscular Volume 86 fL (80-100); Monocytes % (Auto) 14 % (0-12); Neutrophils # (Auto) 4.7 Thou/mm3 (1.8-7.7); Neutrophils % (Auto) 66 % (37-80); Nucleated Red Blood Cell % 0 /100 WBC (0); Platelet Count 211 Thou/mm3 (140-440); RDW Standard Deviation 45.6 fL (36.4-46.3); Red Blood Count 4.07 Miln/mm3 (4.00-5.20); White Blood Count 7.1 Thou/mm3 (3.6-11.0)
[2024-11-14 16:54] LABS: Alanine Aminotransferase 8 U/L (10-49); Albumin, Serum 3.9 gm/dL (3.4-4.8); Albumin/Globulin Ratio 1.2 (1.2-2.2); Alkaline Phosphatase 109 U/L (46-116); Anion Gap 9 (7-16); Aspartate Amino Transferase 38 U/L (0-34); BUN/Creatinine Ratio 18 Ratio (12-20); Bilirubin,Total 0.3 mg/dL (0.3-1.2); Blood Urea Nitrogen 21 mg/dL (9-23); Calcium 9.1 mg/dL (8.3-10.6); Calcium (Corrected) 9.2 mg/dL (8.5-10.1); Carbon Dioxide 22.9 mMol/L (20.0-31.0); Chloride 105 mMol/L (98-107); Creatinine (Component) 1.2 mg/dL (0.6-1.3); Globulin 3.2 gm/dL (2.3-3.5); Glucose 98 mg/dL (74-106); Osmolality,Calculated 276 (275-295); Sodium 137 mMol/L (136-145); Thyroid Stimulating Hormone 3.43 uIU/mL (0.55-4.78); Total Protein 7.1 gm/dL (5.7-8.2); eGFR 47 See Note
== END 2024-11-14 23:59 | disposition home or self-care (01) ==
LOC: SCTC 15:24
PROVIDERS: PCP Internal Medicine; Referring Provider Internal Medicine; Visit Provider Internal Medicine Hematology & Oncology
DX: Z51.11 Encounter for antineoplastic chemotherapy (principal); C22.1 Intrahepatic bile duct carcinoma; R10.11 Right upper quadrant pain; Z85.42 Personal history of malignant neoplasm of other parts of uterus; Z90.710 Acquired absence of both cervix and uterus; I10 Essential (primary) hypertension; M19.90 Unspecified osteoarthritis, unspecified site
CPT/HCPCS: 36591; 80053; 82105; 84443; 85025; 96367; 96413; 99212; A4216; J1642; J2405; J7050; J9173; G0463

== ENCOUNTER 2024-12-13 08:42 | Outpatient (RCR) | payer MEDICARE, SELFPAY ==
[2024-12-12 11:45] LABS: Basophils % (Auto) 1 % (0-2.5); Eosinophils # (Auto) 0.1 Thou/mm3 (0.0-0.5); Eosinophils % (Auto) 2 % (0-10); Hematocrit 32.7 % (36.0-46.0); Hemoglobin 10.7 g/dL (12.0-16.0); Immature Granulocytes % (Auto) 0 % (0-0); Immature Granulocytes Auto 0.01 Thou/mm3 (0.00-0.00); Lymphocytes # (Auto) 1.3 Thou/mm3 (1.0-4.8); Lymphocytes % (Auto) 19 % (10-50); Mean Corpuscular HGB Conc 32.7 g/dl (31.0-37.0); Mean Corpuscular Hemoglobin 28.2 pg (25.0-35.0); Mean Corpuscular Volume 86 fL (80-100); Monocytes # (Auto) 0.8 Thou/mm3 (0.0-0.8); Monocytes % (Auto) 13 % (0-12); Neutrophils # (Auto) 4.3 Thou/mm3 (1.8-7.7); Neutrophils % (Auto) 66 % (37-80); Nucleated Red Blood Cell % 0 /100 WBC (0); Platelet Count 200 Thou/mm3 (140-440); RDW Standard Deviation 48.7 fL (36.4-46.3); White Blood Count 6.5 Thou/mm3 (3.6-11.0)
[2024-12-12 12:16] LABS: Alanine Aminotransferase 8 U/L (10-49); Albumin, Serum 3.9 gm/dL (3.4-4.8); Albumin/Globulin Ratio 1.4 (1.2-2.2); Alkaline Phosphatase 122 U/L (46-116); Anion Gap 12 (7-16); Aspartate Amino Transferase 33 U/L (0-34); BUN/Creatinine Ratio 19 Ratio (12-20); Bilirubin,Total 0.4 mg/dL (0.3-1.2); Blood Urea Nitrogen 29 mg/dL (9-23); Calcium 9.2 mg/dL (8.3-10.6); Calcium (Corrected) 9.3 mg/dL (8.5-10.1); Chloride 104 mMol/L (98-107); Creatinine (Component) 1.5 mg/dL (0.6-1.3); Globulin 2.8 gm/dL (2.3-3.5); Glucose 90 mg/dL (74-106); Osmolality,Calculated 283 (275-295); Potassium 4.1 mMol/L (3.4-5.1); Sodium 139 mMol/L (136-145); Thyroid Stimulating Hormone 2.57 uIU/mL (0.55-4.78); Total Protein 6.7 gm/dL (5.7-8.2); eGFR 36 See Note
== END 2024-12-15 23:59 | disposition home or self-care (01) ==
LOC: SCTC 08:42
PROVIDERS: PCP Internal Medicine; Referring Provider Internal Medicine Hematology & Oncology; Visit Provider Internal Medicine Hematology & Oncology
DX: Z51.11 Encounter for antineoplastic chemotherapy (principal); C22.1 Intrahepatic bile duct carcinoma; I10 Essential (primary) hypertension; M19.90 Unspecified osteoarthritis, unspecified site; F03.90 Unspecified dementia, unspecified severity, without behavioral disturbance, psychotic disturbance, mood disturbance, and anxiety; Z85.42 Personal history of malignant neoplasm of other parts of uterus; Z90.710 Acquired absence of both cervix and uterus
CPT/HCPCS: 36591; 80053; 82105; 84443; 85025; 96367; 96413; A4216; J1642; J2405; J7030; J7050; J9173

== ENCOUNTER → 2024-12-20 | Outpatient (CLI) | payer MEDICARE, SELFPAY ==
--- NOTE | 2024-12-20 16:30 | ECHO_ITS ---
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 16 - 28 cm?/m? M-MODE Aortic Root Diameter MM 2.8 cm LA Systolic Diameter MM 2.9 cm LA Ao Ratio MM 1.0 AV Cusp Separation MM 1.7 cm DOPPLER AV Peak Velocity 113.0 cm/s AV Peak Gradient 5.1 mmHg AV Mean Gradient 3.0 mmHg AV Velocity Time Integral 25.8 cm LVOT Peak Velocity 99.8 cm/s LVOT Peak Gradient 4.0 mmHg LVOT Velocity Time Integral 21.2 cm AV Area Cont Eq vti 2.1 cm? AV Area Cont Eq pk 2.2 cm? MV Area PHT 3.5 cm? Mitral E Point Velocity 66.5 cm/s Mitral A Point Velocity 103.0 cm/s Mitral E to A Ratio 0.6 LV E' Lateral Velocity 6.6 cm/s Mitral E to LV E' Lateral Ratio 10.0 LV E' Septal Velocity 5.8 cm/s Mitral E to LV E' Septal Ratio 11.5 TR Peak Velocity 261.5 cm/s TR Peak Gradient 27.4 mmHg PV Peak Velocity 106.0 cm/s PV Peak Gradient 4.5 mmHg FINDINGS Left Ventricle Normal left ventricular size, wall thickness, systolic function with no obvious regional wall motion abnormalities. There is grade I diastolic dysfunction of the left ventricle (impaired relaxation pattern). The ejection fraction is visually estimated at 55-60%. Right Ventricle The right ventricle is normal in size and systolic function. The estimated right ventricular systolic pressure, 32 mmHg. RAP 5. Left Atrium The left atrium is normal by two-dimensional, color flow and Doppler imaging with no structural abnormalities, no thrombus formation present. Right Atrium The right atrium is normal by two-dimensional imaging, color flow and Doppler imaging with no structural abnormalities, no thrombus formation present. Atrial Septum The interatrial septum appears normal with no evidence of a shunt. Aorta The aorta is normal by two-dimensional, color flow and Doppler interrogation. Mitral Valve Mild mitral annular calcification. Trace mitral regurgitation. Aortic Valve The aortic valve is trileaflet and normal by two-dimensional, color flow and Doppler interrogation. There is no significant aortic valve regurgitation. Tricuspid Valve There is mild tricuspid valve regurgitation. Pulmonic Valve The pulmonic valve is not well visualized. There is no significant pulmonic valve regurgitation. Vessels The pulmonary artery appears normal. The inferior vena cava pulmonary and hepatic veins appear normal. Pericardium The pericardium is normal by two-dimensional imaging. There is no significant pericardial effusion. CONCLUSIONS Indication: Secondary malignant neoplasm of liver and intrahepatric bile Normal LV size and function. Grade I diastolic dysfunction. Estimated EF 55- 60%. Normal RV function. mildly dilated RV. The estimated RVSP, 35 mmHg. RAP 5. Mild TR. Moderate posterior MAC. Trace to mild MR. No pericardial effusion Luis Chavez (Electronically Signed) Final Date: 21 December 2024 17:55
== END | disposition home or self-care (01) ==
LOC: SDIM 16:06
PROVIDERS: PCP Internal Medicine; Referring Provider Internal Medicine Hematology & Oncology; Visit Provider Internal Medicine Hematology & Oncology
DX: I51.9 Heart disease, unspecified (principal); I08.1 Rheumatic disorders of both mitral and tricuspid valves; C78.7 Secondary malignant neoplasm of liver and intrahepatic bile duct
CPT/HCPCS: 93306

== ENCOUNTER 2025-01-10 08:58 | Outpatient (RCR) | payer MEDICARE, SELFPAY ==
[2024-12-21 11:46] LABS: Basophils % (Auto) 1 % (0-2.5); Eosinophils # (Auto) 0.1 Thou/mm3 (0.0-0.5); Eosinophils % (Auto) 3 % (0-10); Hematocrit 33.6 % (36.0-46.0); Hemoglobin 10.8 g/dL (12.0-16.0); Immature Granulocytes % (Auto) 0 % (0-0); Immature Granulocytes Auto 0.01 Thou/mm3 (0.00-0.00); Lymphocytes % (Auto) 18 % (10-50); Mean Corpuscular HGB Conc 32.1 g/dl (31.0-37.0); Mean Corpuscular Hemoglobin 28.7 pg (25.0-35.0); Mean Corpuscular Volume 89 fL (80-100); Monocytes # (Auto) 0.5 Thou/mm3 (0.0-0.8); Monocytes % (Auto) 9 % (0-12); Neutrophils # (Auto) 3.7 Thou/mm3 (1.8-7.7); Neutrophils % (Auto) 70 % (37-80); Nucleated Red Blood Cell % 0 /100 WBC (0); Platelet Count 183 Thou/mm3 (140-440); RDW Standard Deviation 49.7 fL (36.4-46.3); Red Blood Count 3.76 Miln/mm3 (4.00-5.20); White Blood Count 5.3 Thou/mm3 (3.6-11.0)
[2024-12-21 12:02] LABS: Alanine Aminotransferase 8 U/L (10-49); Albumin, Serum 3.9 gm/dL (3.4-4.8); Albumin/Globulin Ratio 1.4 (1.2-2.2); Alkaline Phosphatase 117 U/L (46-116); Anion Gap 11 (7-16); Aspartate Amino Transferase 31 U/L (0-34); BUN/Creatinine Ratio 19 Ratio (12-20); Bilirubin,Total 0.5 mg/dL (0.3-1.2); Blood Urea Nitrogen 26 mg/dL (9-23); Calcium 9.5 mg/dL (8.3-10.6); Calcium (Corrected) 9.6 mg/dL (8.5-10.1); Carbon Dioxide 24.4 mMol/L (20.0-31.0); Chloride 102 mMol/L (98-107); Creatinine (Component) 1.4 mg/dL (0.6-1.3); Globulin 2.7 gm/dL (2.3-3.5); Glucose 134 mg/dL (74-106); Osmolality,Calculated 280 (275-295); Sodium 137 mMol/L (136-145); Total Protein 6.6 gm/dL (5.7-8.2); eGFR 39 See Note
--- NOTE | 2024-12-31 00:20 | CTCFLWUP_ITS ---
Patient: NAKIA FIELD : 1945 Page 7 of 9 FOLLOW UP NOTE DATE OF SERVICE: 12/25/2024 NAME: NAKIA FIELD ACCOUNT: [id number] : 1945 AGE: 79 INTERVAL HISTORY: Subjective: Chief Complaint Cancer progression indicated by Cyrus results, persistent lesions with no progress, depression History of Present Illness Emir Palacio, a patient with stage 4 pancreaticobiliary cancer, presents for follow-up of her ongoing treatment. She was initially diagnosed with invasive adenocarcinoma on 11/03/2019, which has been identified as metastatic adenocarcinoma involving the liver parenchyma, originating from the gallbladder or bile ducts. The patient is currently under durvalumab maintenance therapy and has completed chemo-embolization. However, she reports persistent lesions with no progress, and recent Neutera test results indicate cancer progression. She experiences pain in the liver area, which is exacerbated by breathing. The patient has been taking tramadol twice daily for pain management, though she tries to limit her use of pain medication. Depression has been noted in the patient's presentation. The patient's quality of life has been impacted by her cancer diagnosis and ongoing symptoms. She has been seen by multiple specialists, including doctors at [facility], Dr. Arrington, and Dr. Fallon, for her complex condition. The patient reports adherence to her current treatment regimen, but immunotherapy alone does not appear to be effective in managing her cancer progression. She has not discontinued any treatments but is open to exploring new options, including potential clinical trials or returning to chemotherapy. Medications and Supplements - Durvalumab - Maintenance therapy - Tramadol - Taken twice daily, morning and night - Patient tries to limit intake Review of Systems General: Positive for pain. Psychiatric: Positive for depression. Objective: Laboratory, Imaging, and Diagnostic Test Results - Neutera: - 10/20/2024: 31.89 - 12/13/2024: 56.87 - Tumor markers: Within normal range - Biopsy (11/03/2019): Invasive adenocarcinoma, identified as pancreaticobiliary cancer ONCOLOGY HISTORY:?[facility] Hx? DIAGNOSIS: Secondary malignant neoplasm of liver and intrahepatic bile duct [ICD10] C78.7 DATE OF DIAGNOSIS: 06/20/2023 Cholangiocarcinoma STAGE/TNM: Locally advanced hepatocellular cancer TREATMENT HISTORY: Care?Plan Start?Date Cycle Day Intent Durvalumab,?cisplatin?and?gemcitabine?cholangiocarcinoma?regimen?1 12/07/2023 1 21 Palliative Durvalumab?maintenance?cholangiocarcinoma?regimen?2 07/26/2024 1 28 Maintenance HISTORY OF PRESENT ILLNESS: Nakia Field is a 79-year-old ENG speaking female with history of hypertension as well as arthritis, uterine cancer about 15 years ago, status post hysterectomy at that time has the following oncology history. 05/12/2023: Ms. Field had abdominal ultrasound to evaluate the cause for recurrent UTIs. 06/30/2023: MRI of the abdomen with and without IV contrast 08/12/2023: CT-guided right hepatic lobe biopsy? 09/06/2023: Tumor markers? 09/22/2023: PET CT scan done 09/27/2023: EGD and colonoscopy 10/12/2023: Bilateral breast ultrasound 11/03/2023: CT-guided biopsy of the right lobe liver lesion 11/11/2023: Cancer type ID 12/07/2023: Ms. Field is started on durvalumab, cisplatin and gemcitabine chemotherapy. 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 Tobacco?Use:?Denies ETOH?Use:?Denies Drug?Note:?Denies Social History Note:?Lives alone - daughters stay frequently VP ANCILLARY HISTORY: Menarche?-?Age:?12 Menopause:?1975 :?6 Live?Births:?4 Age?1st?:?24 MEDICATIONS: 1. antacid Extra-Strength - 500 mg Twice a Day 2. levothyroxine - 50 mcg 1 Capsule Daily 3. Lomotil - 2.5-0.025 mg 1 tab one po four times a day prn diarrhea 4. magnesium oxide - 200 mg magnesium 2 tab Daily 5. megestrol - 400 mg/10 mL (40 mg/mL) 10 mL Daily 6. prochlorperazine - 10 mg 1 tab Daily 7. sodium bicarbonate (antacid) - 325 mg tab As directed 8. traMADol - 50 mg 1 tab As needed 9. Tylenol - 325 mg tab As needed 10. Zofran - 8 mg 1 tab As needed?Palabra Meds? Medications Last Reconciled by Jessica Fleming MA on 12/25/2024 ALLERGIES: ciprofloxacin REVIEW OF SYSTEMS: A complete 14-point review of systems was performed and is negative except as noted in interval history. PHYSICAL EXAMINATION:?[facility] PE? VITAL SIGNS: Temperature?99.7, B/P?167/76, Oxygen?Saturation?95% PAIN: 5 - Between moderate and severe pain ECOG Performance Status: 3 - Symptomatic; limited self-care; spends >50% of time in bed, not bedridden EYE: Conjunctivae is white MOUTH: Oral cavity is dry. CHEST: Clear to auscultation. No wheezes or rales audible. CARDIAC: Rhythm regular, no murmurs or gallops present. ABDOMEN: Soft. No hepatomegaly. No splenomegaly. No masses palpable in the right upper quadrant of the abdomen EXTREMITIES: No pedal edema or cyanosis. LABORATORY DATA: I have personally reviewed and interpreted each of the patient?s relevant lab tests, abnormal findings are below: Date 12/12/24 12/21/24 ??WHITE?BLOOD?COUNT?(Thou/mm3) 6.5 5.3 ??RED?BLOOD?COUNT?(Miln/mm3) 3.80?L 3.76?L ??HEMOGLOBIN?(gm/dl) 10.7?L 10.8?L ??HEMATOCRIT?(%) 32.7?L 33.6?L ??PLATELET?COUNT?(Thou/mm3) 200 183 ??NEUTROPHILS?%,?AUTO?(%) 66 70 ??LYMPH?%,?AUTO?(%) 19 18 ??NEUTROPHILS,?AUTO?(Thou/mm3) 4.3 3.7 ??GLUCOSE,RANDOM?(mg/dL) 90 134?H ??BLOOD?UREA?NITROGEN?(mg/dL) 29?H 26?H ??CREATININE?(mg/dL) 1.50?H 1.40?H ??SODIUM?(mmol/L) 139 137 ??POTASSIUM?(mmol/L) 4.1 4.0 ??CHLORIDE?(mmol/L) 104 102 ??CrCl?(CandG)?(ml/min) 30.59 33.11 ??AST/SGOT?(Unit/L) 33 31 ??ALT/SGPT?(Unit/L) 8?L 8?L ??ALKALINE?PHOSPHATASE?(Unit/L) 122?H 117?H ??BILIRUBIN,?TOTAL?(mg/dL) 0.4 0.5 ??PROTEIN?TOTAL?(gm/dl) 6.7 6.6 ??ALBUMIN,?SERUM?(gm/dl) 3.9 3.9 ??GLOBULIN?(gm/dl) 2.8 2.7 ??ALBUMIN/GLOBULIN?RATIO 1.4 1.4 ??CALCIUM,?SERUM?(mg/dL) 9.2 9.5 ??CALCIUM?SERUM?(CORRECTED)?(mg/dL) 9.3 9.6 ASSESSMENT/PLAN:?Atiya Austin Assessment/Plan? #1 cholangiocarcinoma Patient has metastatic cholangiocarcinoma She was initially started on cisplatin gemcitabine and durvalumab Cisplatin held after patient have symptoms concerning for worsening neuropathy that his dizziness and vertigo symptoms Patient completed chemoembolization. Most likely cholangiocarcinoma confined to the liver. Tumor markers are in the normal range. PET/CT scan shows hypermetabolic liver lesion. Ct scan shows persistant lesion but no progress As per patient interventional radiologist told that lesion has decreased by 80% Emir Palacio, female patient with stage IV pancreaticobiliary cancer (cholangiocarcinoma), presenting with persistent liver lesions and pain. Stage IV Pancreaticobiliary Cancer (Cholangiocarcinoma) Assessment: Patient diagnosed with stage IV pancreaticobiliary cancer, specifically cholangiocarcinoma, based on biopsy from 11/03/2019 showing invasive adenocarcinoma. Cancer originated in the gallbladder/bile ducts and has metastasized to the liver. Currently under durvalumab maintenance therapy. Rece nt Neutera results show progression from 31.89 on 10/20/2024 to 56.87 on 12/13/2024, indicating cancer progression. Tumor markers are in the normal range, but persistent lesions with no progress noted. Immunotherapy alone is not providing adequate control. Patient has completed chemo-embolization. Depression noted. Plan: - Order NGS panel to check for mutations - Consider returning to chemotherapy with carboplatin and other drugs - Discuss chemotherapy options: - Single drug or combination with immunotherapy - 5FU or capecitabine (available in pill form for home use) - Refer patient to [facility] in [place] for clinical trial evaluation - Continue pain management: - Continue tramadol as currently prescribed (twice daily) - Refer for nerve block procedure - Consider alcohol injection for pain management (to be discussed with [facility] in [place]) - Emphasize importance of maintaining quality of life. Patient is very reluctant to adding chemotherapy and wants to cont with durvalumab for now and get opinion - Follow up on MRI results #2 history of uterine cancer about 50 years ago. Ms. Field had hysterectomy at that time. #3 hypertension well-controlled follow with PCP. #4 osteoarthritis stable follow-up with PCP. #5 dementia like symptoms- mri shows microvascular changes . no masses or bleeding or ischameia B12 folic acid iron studies vitamin D ORDERS: Order # Description [id number] [facility] One CDX + [facility] One Liquid CDX [id number] + CA 19-9 [id number] CA 19-9 [id number] RETURN TO CLINIC: BILLING AND COMPLIANCE: I reviewed external records from providers outside my specialty as summarized above. I spent a total of 50 minutes on this patient?s care on the day of their visit excluding time spent related to any billed procedures. This time includes time spent with the patient as well as time spent documenting in the medical record, reviewing patients records and tests, obtaining history, placing orders, communicating with other healthcare professionals, counseling the patient, family or caregiver, and/or care coordination for the diagnoses above. Electronically Signed by: David Austin MD T: 12:18 AM CC: PCP: David Austin Referring: David Austin This document was completed utilizing speech recognition software. Grammatical errors, random word insertions, pronoun errors, and incomplete sentences are an occasional consequence of this system due to software limitations, ambient noise, and hardware issues. Any formal questions or concerns about the content, text or information contained within the body of this dictation should be directly addressed to the provider for clarification.
--- NOTE | 2025-01-07 01:17 | CTCFLWUP_ITS ---
Patient: NAKIA FIELD : 1945 MR#: [id number] Page 3 of 3 TELEHEALTH FOLLOW UP NOTE DATE OF CONSULTATION: 01/01/2025 NAME: NAKIA FIELD ACCOUNT: [id number] : 1945 AGE: 79 REFERRING PHYSICIAN: David Austin MD PRIMARY PHYSICIAN: David Austin MD INTERVAL HISTORY: Telephone appointment was made with Ms. Field. Patient had agreed previously. Patient was called on the given number and consented to proceed with the appointment Patient was concerned about the MRI results and MRI results discussed during this telephone conversation. I explained to Ms. Field that she has kendrick progression of cancer. Patient had pain in the right upper quadrant where the cancer is progressing. Patient's embolization in the liver has likely failed and durvalumab is not working. Patient have not yet decided whether she want to undergo any chemotherapy or not. 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 antacid Extra-Strength - 500 mg Twice a Day 2. capecitabine - 500 mg 1,000 mg/m*2 1590 mg 3 tabs twice daily for 14 days and 1 week off 3. Lomotil - 2.5-0.025 mg 1 tab one po four times a day prn diarrhea 4. magnesium oxide - 200 mg magnesium 2 tab Daily 5. megestrol - 400 mg/10 mL (40 mg/mL) 10 mL Daily 6. oxycodone - 5 mg 2 tab 2 tab every 6 hrs as needed for pain 7. prochlorperazine - 10 mg 1 tab Daily 8. senna - 8.6 mg 2 tab Daily 9. sodium bicarbonate (antacid) - 325 mg tab As directed 10. traMADol - 50 mg 1 tab As needed 11. Tylenol - 325 mg tab As needed 12. Zofran - 8 mg 1 tab As needed Medications Last Reconciled by Britni Barros MA on 01/01/2025 ALLERGIES: ciprofloxacin REVIEW OF SYSTEMS: A complete 14-point review of systems was performed and is negative except as noted in interval history. PHYSICAL EXAMINATION: The patient appeared well-nourished, alert, and in no apparent distress via video conferencing. LABORATORY DATA: I have personally reviewed and interpreted each of the patient?s relevant lab tests, abnormal findings are below: ASSESSMENT/PLAN: Discussed with Ms. Field that she has metastatic cancer in the liver which is progressing and also likely cause of her worsening pain I recommended that we start chemotherapy Patient at this time have not decided to do further chemotherapy She will reach to the clinic after she make her decision Patient will need to hold hospice at this time RETURN TO CLINIC: BILLING AND COMPLIANCE: I reviewed external records from providers outside my specialty as summarized above. I spent a total of 50 minutes on this patient?s care on the day of their visit excluding time spent related to any billed procedures. This time includes time spent with the patient as well as time spent documenting in the medical record, reviewing patients records and tests, obtaining history, placing orders, communicating with other healthcare professionals, counseling the patient, family or caregiver, and/or care coordination for the diagnoses above. I performed this evaluation using real-time Telehealth tools. Prior to initiating, the patient consented to perform this evaluation using Telehealth tools. Electronically Signed by: David Austin MD T: 1:15 AM CC: PCP: David Austin Referring: David Austin This document was completed utilizing speech recognition software. Grammatical errors, random word insertions, pronoun errors, and incomplete sentences are an occasional consequence of this system due to software limitations, ambient noise, and hardware issues. Any formal questions or concerns about the content, text or information contained within the body of this dictation should be directly addressed to the provider for clarification.
[2025-01-09 10:03] LABS: Basophils % (Auto) 1 % (0-2.5); Eosinophils # (Auto) 0.1 Thou/mm3 (0.0-0.5); Eosinophils % (Auto) 2 % (0-10); Hematocrit 32.6 % (36.0-46.0); Hemoglobin 10.6 g/dL (12.0-16.0); Immature Granulocytes % (Auto) 0 % (0-0); Immature Granulocytes Auto 0.01 Thou/mm3 (0.00-0.00); Lymphocytes % (Auto) 18 % (10-50); Mean Corpuscular HGB Conc 32.5 g/dl (31.0-37.0); Mean Corpuscular Hemoglobin 28.5 pg (25.0-35.0); Mean Corpuscular Volume 88 fL (80-100); Monocytes # (Auto) 0.6 Thou/mm3 (0.0-0.8); Monocytes % (Auto) 11 % (0-12); Neutrophils # (Auto) 3.8 Thou/mm3 (1.8-7.7); Neutrophils % (Auto) 68 % (37-80); Nucleated Red Blood Cell % 0 /100 WBC (0); Platelet Count 192 Thou/mm3 (140-440); RDW Standard Deviation 47.2 fL (36.4-46.3); Red Blood Count 3.72 Miln/mm3 (4.00-5.20); White Blood Count 5.6 Thou/mm3 (3.6-11.0)
[2025-01-09 10:34] LABS: Alanine Aminotransferase 7 U/L (10-49); Albumin, Serum 3.9 gm/dL (3.4-4.8); Albumin/Globulin Ratio 1.4 (1.2-2.2); Alkaline Phosphatase 130 U/L (46-116); Anion Gap 9 (7-16); Aspartate Amino Transferase 32 U/L (0-34); BUN/Creatinine Ratio 15 Ratio (12-20); Bilirubin,Total 0.6 mg/dL (0.3-1.2); Blood Urea Nitrogen 18 mg/dL (9-23); Calcium 8.6 mg/dL (8.3-10.6); Calcium (Corrected) 8.7 mg/dL (8.5-10.1); Carbon Dioxide 25.7 mMol/L (20.0-31.0); Chloride 103 mMol/L (98-107); Creatinine (Component) 1.2 mg/dL (0.6-1.3); Globulin 2.8 gm/dL (2.3-3.5); Glucose 96 mg/dL (74-106); Osmolality,Calculated 277 (275-295); Potassium 3.8 mMol/L (3.4-5.1); Sodium 138 mMol/L (136-145); Thyroid Stimulating Hormone 3.53 uIU/mL (0.55-4.78); Total Protein 6.7 gm/dL (5.7-8.2); eGFR 47 See Note
== END 2025-01-14 23:59 | disposition home or self-care (01) ==
LOC: SCTC 08:58
PROVIDERS: PCP Internal Medicine; Referring Provider Internal Medicine Hematology & Oncology; Visit Provider Internal Medicine Hematology & Oncology
DX: Z51.11 Encounter for antineoplastic chemotherapy (principal); C78.7 Secondary malignant neoplasm of liver and intrahepatic bile duct; Z85.42 Personal history of malignant neoplasm of other parts of uterus
CPT/HCPCS: 36591; 80053; 82105; 84443; 85025; 96360; 96367; 96413; 99212; A4216; J1642; J2405; J7030; J7040; J7050; J9173; G0463

== ENCOUNTER 2025-02-12 13:31 | Outpatient (RCR) | payer MEDICARE, SELFPAY ==
[2025-01-25 11:59] LABS: Basophils # (Auto) 0.0 Thou/mm3 (0.0-0.2); Basophils % (Auto) 1 % (0-2.5); Eosinophils # (Auto) 0.1 Thou/mm3 (0.0-0.5); Eosinophils % (Auto) 1 % (0-10); Hematocrit 29.3 % (36.0-46.0); Hemoglobin 10.0 g/dL (12.0-16.0); Immature Granulocytes Auto 0.02 Thou/mm3 (0.00-0.00); Lymphocytes # (Auto) 1.3 Thou/mm3 (1.0-4.8); Lymphocytes % (Auto) 21 % (10-50); Mean Corpuscular HGB Conc 34.1 g/dl (31.0-37.0); Mean Corpuscular Hemoglobin 30.0 pg (25.0-35.0); Mean Corpuscular Volume 88 fL (80-100); Monocytes # (Auto) 0.6 Thou/mm3 (0.0-0.8); Monocytes % (Auto) 9 % (0-12); Neutrophils # (Auto) 4.3 Thou/mm3 (1.8-7.7); Neutrophils % (Auto) 68 % (37-80); Nucleated Red Blood Cell # 0.00 Thou/mm3 (0.00-0.00); Nucleated Red Blood Cell % 0 /100 WBC (0); Platelet Count 175 Thou/mm3 (140-440); RDW Standard Deviation 46.4 fL (36.4-46.3); Red Blood Count 3.33 Miln/mm3 (4.00-5.20); White Blood Count 6.4 Thou/mm3 (3.6-11.0)
[2025-01-25 12:35] LABS: Alanine Aminotransferase < 7 U/L (10-49); Albumin, Serum 3.6 gm/dL (3.4-4.8); Albumin/Globulin Ratio 1.2 (1.2-2.2); Alkaline Phosphatase 103 U/L (46-116); Anion Gap 11 (7-16); Aspartate Amino Transferase 33 U/L (0-34); BUN/Creatinine Ratio 10 Ratio (12-20); Bilirubin,Total 0.6 mg/dL (0.3-1.2); Blood Urea Nitrogen 19 mg/dL (9-23); Calcium 8.8 mg/dL (8.3-10.6); Calcium (Corrected) 9.1 mg/dL (8.5-10.1); Carbon Dioxide 24.1 mMol/L (20.0-31.0); Chloride 102 mMol/L (98-107); Creatinine (Component) 2.0 mg/dL (0.6-1.3); Globulin 3.1 gm/dL (2.3-3.5); Glucose 137 mg/dL (74-106); Osmolality,Calculated 278 (275-295); Potassium 3.6 mMol/L (3.4-5.1); Sodium 137 mMol/L (136-145); Thyroid Stimulating Hormone 6.47 uIU/mL (0.55-4.78); Total Protein 6.7 gm/dL (5.7-8.2); eGFR 25 See Note
[2025-01-29 06:55] LABS: CA 19-9 Antigen* 31 U/mL (<34)
[2025-01-30 15:26] LABS: Basophils # (Auto) 0.0 Thou/mm3 (0.0-0.2); Basophils % (Auto) 0 % (0-2.5); Eosinophils # (Auto) 0.1 Thou/mm3 (0.0-0.5); Eosinophils % (Auto) 2 % (0-10); Hematocrit 29.1 % (36.0-46.0); Hemoglobin 9.7 g/dL (12.0-16.0); Immature Granulocytes Auto 0.01 Thou/mm3 (0.00-0.00); Lymphocytes # (Auto) 1.3 Thou/mm3 (1.0-4.8); Lymphocytes % (Auto) 24 % (10-50); Mean Corpuscular HGB Conc 33.3 g/dl (31.0-37.0); Mean Corpuscular Hemoglobin 30.3 pg (25.0-35.0); Mean Corpuscular Volume 91 fL (80-100); Monocytes # (Auto) 0.8 Thou/mm3 (0.0-0.8); Monocytes % (Auto) 15 % (0-12); Neutrophils # (Auto) 3.1 Thou/mm3 (1.8-7.7); Neutrophils % (Auto) 59 % (37-80); Nucleated Red Blood Cell # 0.00 Thou/mm3 (0.00-0.00); Nucleated Red Blood Cell % 0 /100 WBC (0); Platelet Count 153 Thou/mm3 (140-440); RDW Standard Deviation 51.4 fL (36.4-46.3); Red Blood Count 3.20 Miln/mm3 (4.00-5.20); White Blood Count 5.3 Thou/mm3 (3.6-11.0)
[2025-01-30 15:57] LABS: Alanine Aminotransferase < 7 U/L (10-49); Albumin, Serum 3.6 gm/dL (3.4-4.8); Albumin/Globulin Ratio 1.2 (1.2-2.2); Alkaline Phosphatase 101 U/L (46-116); Anion Gap 11 (7-16); Aspartate Amino Transferase 31 U/L (0-34); BUN/Creatinine Ratio 11 Ratio (12-20); Bilirubin,Total 0.6 mg/dL (0.3-1.2); Blood Urea Nitrogen 19 mg/dL (9-23); Calcium 8.9 mg/dL (8.3-10.6); Calcium (Corrected) 9.2 mg/dL (8.5-10.1); Carbon Dioxide 22.3 mMol/L (20.0-31.0); Chloride 107 mMol/L (98-107); Creatinine (Component) 1.8 mg/dL (0.6-1.3); Globulin 3.0 gm/dL (2.3-3.5); Glucose 113 mg/dL (74-106); Osmolality,Calculated 282 (275-295); Potassium 4.0 mMol/L (3.4-5.1); Sodium 140 mMol/L (136-145); Total Protein 6.6 gm/dL (5.7-8.2); eGFR 29 See Note
[2025-02-06 12:22] LABS: Basophils # (Auto) 0.0 Thou/mm3 (0.0-0.2); Basophils % (Auto) 0 % (0-2.5); Eosinophils # (Auto) 0.1 Thou/mm3 (0.0-0.5); Eosinophils % (Auto) 2 % (0-10); Hematocrit 30.8 % (36.0-46.0); Hemoglobin 10.2 g/dL (12.0-16.0); Immature Granulocytes Auto 0.00 Thou/mm3 (0.00-0.00); Lymphocytes # (Auto) 1.4 Thou/mm3 (1.0-4.8); Lymphocytes % (Auto) 26 % (10-50); Mean Corpuscular HGB Conc 33.1 g/dl (31.0-37.0); Mean Corpuscular Hemoglobin 30.9 pg (25.0-35.0); Mean Corpuscular Volume 93 fL (80-100); Monocytes # (Auto) 1.0 Thou/mm3 (0.0-0.8); Monocytes % (Auto) 19 % (0-12); Neutrophils # (Auto) 2.8 Thou/mm3 (1.8-7.7); Neutrophils % (Auto) 53 % (37-80); Nucleated Red Blood Cell # 0.00 Thou/mm3 (0.00-0.00); Nucleated Red Blood Cell % 0 /100 WBC (0); Platelet Count 122 Thou/mm3 (140-440); RDW Standard Deviation 64.5 fL (36.4-46.3); Red Blood Count 3.30 Miln/mm3 (4.00-5.20); White Blood Count 5.3 Thou/mm3 (3.6-11.0)
[2025-02-06 12:37] LABS: AFP Non-Pregnant 4.50 ng/mL (<8.10)
[2025-02-06 12:54] LABS: Alanine Aminotransferase < 7 U/L (10-49); Albumin, Serum 3.7 gm/dL (3.4-4.8); Albumin/Globulin Ratio 1.2 (1.2-2.2); Alkaline Phosphatase 123 U/L (46-116); Anion Gap 9 (7-16); Aspartate Amino Transferase 33 U/L (0-34); BUN/Creatinine Ratio 15 Ratio (12-20); Bilirubin,Total 0.5 mg/dL (0.3-1.2); Blood Urea Nitrogen 25 mg/dL (9-23); Calcium 8.7 mg/dL (8.3-10.6); Calcium (Corrected) 8.9 mg/dL (8.5-10.1); Carbon Dioxide 24.0 mMol/L (20.0-31.0); Chloride 106 mMol/L (98-107); Creatinine (Component) 1.7 mg/dL (0.6-1.3); Globulin 3.0 gm/dL (2.3-3.5); Glucose 105 mg/dL (74-106); Osmolality,Calculated 281 (275-295); Potassium 3.8 mMol/L (3.4-5.1); Sodium 139 mMol/L (136-145); Thyroid Stimulating Hormone 4.08 uIU/mL (0.55-4.78); Total Protein 6.7 gm/dL (5.7-8.2); eGFR 31 See Note
[2025-02-11 09:43] LABS: Basophils # (Auto) 0.0 Thou/mm3 (0.0-0.2); Basophils % (Auto) 1 % (0-2.5); Eosinophils # (Auto) 0.1 Thou/mm3 (0.0-0.5); Eosinophils % (Auto) 1 % (0-10); Hematocrit 32.3 % (36.0-46.0); Hemoglobin 10.4 g/dL (12.0-16.0); Immature Granulocytes Auto 0.02 Thou/mm3 (0.00-0.00); Lymphocytes # (Auto) 1.2 Thou/mm3 (1.0-4.8); Lymphocytes % (Auto) 18 % (10-50); Mean Corpuscular HGB Conc 32.2 g/dl (31.0-37.0); Mean Corpuscular Hemoglobin 31.1 pg (25.0-35.0); Mean Corpuscular Volume 97 fL (80-100); Monocytes # (Auto) 0.7 Thou/mm3 (0.0-0.8); Monocytes % (Auto) 10 % (0-12); Neutrophils # (Auto) 4.7 Thou/mm3 (1.8-7.7); Neutrophils % (Auto) 71 % (37-80); Nucleated Red Blood Cell # 0.00 Thou/mm3 (0.00-0.00); Nucleated Red Blood Cell % 0 /100 WBC (0); Platelet Count 140 Thou/mm3 (140-440); RDW Standard Deviation 64.5 fL (36.4-46.3); Red Blood Count 3.34 Miln/mm3 (4.00-5.20); White Blood Count 6.7 Thou/mm3 (3.6-11.0)
[2025-02-11 09:59] LABS: Alanine Aminotransferase < 7 U/L (10-49); Albumin, Serum 3.8 gm/dL (3.4-4.8); Albumin/Globulin Ratio 1.2 (1.2-2.2); Alkaline Phosphatase 108 U/L (46-116); Anion Gap 11 (7-16); Aspartate Amino Transferase 26 U/L (0-34); BUN/Creatinine Ratio 12 Ratio (12-20); Bilirubin,Total 1.0 mg/dL (0.3-1.2); Blood Urea Nitrogen 18 mg/dL (9-23); Calcium 9.3 mg/dL (8.3-10.6); Calcium (Corrected) 9.5 mg/dL (8.5-10.1); Carbon Dioxide 24.9 mMol/L (20.0-31.0); Chloride 104 mMol/L (98-107); Creatinine (Component) 1.5 mg/dL (0.6-1.3); Globulin 3.1 gm/dL (2.3-3.5); Glucose 146 mg/dL (74-106); Osmolality,Calculated 284 (275-295); Potassium 3.8 mMol/L (3.4-5.1); Sodium 140 mMol/L (136-145); Thyroid Stimulating Hormone 2.62 uIU/mL (0.55-4.78); Total Protein 6.9 gm/dL (5.7-8.2); eGFR 36 See Note
--- NOTE | 2025-02-24 20:47 | CTCFLWUP_ITS ---
Patient: NAKIA FIELD : 1945 Page 2 of 4 FOLLOW UP NOTE DATE OF SERVICE: 02/12/2025 NAME: NAKIA FIELD ACCOUNT: [id number] : 1945 AGE: 79 INTERVAL HISTORY: Telephone appointment was made with Ms. Field. Patient had agreed previously. Patient was called on the given number and consented to proceed with the appointment Patient was concerned about the MRI results and MRI results discussed during this telephone conversation. I explained to Ms. Field that she has kendrick progression of cancer. Patient had pain in the right upper quadrant where the cancer is progressing. Patient's embolization in the liver has likely failed and durvalumab is not working. Patient have not yet decided whether she want to undergo any chemotherapy or not. ONCOLOGY HISTORY: DIAGNOSIS: Secondary malignant neoplasm of liver and intrahepatic bile duct [ICD10] C78.7 Secondary malignant neoplasm of liver and intrahepatic bile duct [ICD10] C78.7 DATE OF DIAGNOSIS: PATHOLOGY: STAGE/TNM: TREATMENT HISTORY: Care?Plan Start?Date Cycle Day Intent Durvalumab,?cisplatin?and?gemcitabine?cholangiocarcinoma?regimen?1 12/07/2023 1 Palliative Durvalumab?maintenance?cholangiocarcinoma?regimen?2 07/26/2024 1 28 Maintenance HISTORY OF PRESENT ILLNESS: 79-year-old female with metastatic moderately differentiated adenocarcinoma hepatobiliary involving liver OTHER MEDICAL HISTORY/CONDITIONS: Metastatic moderately differentiated adenocarcinoma involving liver- dx 08/14/23 HTN Uterine cancer - 1975 Cholecycystectomy - 15 yrs ago Lumbar laminectomy - 10 yrs ago CLARISSE; BSO - 1975 FAMILY HISTORY: Children:?Dtr?-?Cervical?-?dx?age?49 SOCIAL HISTORY: 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 antacid Extra-Strength - 500 mg Twice a Day 2. capecitabine - 500 mg 1,000 mg/m*2 1590 mg 3 tabs twice daily for 14 days and 1 week off 3. Lomotil - 2.5-0.025 mg 1 tab one po four times a day prn diarrhea 4. magnesium oxide - 200 mg magnesium 2 tab Daily 5. megestrol - 400 mg/10 mL (40 mg/mL) 10 mL Daily 6. oxycodone - 5 mg 2 tab 2 tab every 6 hrs as needed for pain 7. prochlorperazine - 10 mg 1 tab Daily 8. senna - 8.6 mg 2 tab Daily 9. sodium bicarbonate (antacid) - 325 mg tab As directed 10. traMADol - 50 mg 1 tab As needed 11. Tylenol - 325 mg tab As needed 12. Zofran - 8 mg 1 tab As needed?Palabra Meds? Medications Last Reconciled by Britni Barros MA on 02/12/2025 ALLERGIES: ciprofloxacin REVIEW OF SYSTEMS: A complete 14-point review of systems was performed and is negative except as noted in interval history. PHYSICAL EXAMINATION:?CloneBlock PE? VITAL SIGNS: Temperature?98.9, B/P?145/78, Oxygen?Saturation?99% PAIN: 2 - Mild pain ECOG Performance Status: None The patient appeared well-nourished, alert, and in no apparent distress via video conferencing. LABORATORY DATA: I have personally reviewed and interpreted each of the patient?s relevant lab tests, abnormal findings are below: Date 02/06/25 02/11/25 ??WHITE?BLOOD?COUNT?(Thou/mm3) 5.3 6.7 ??RED?BLOOD?COUNT?(Miln/mm3) 3.30?L 3.34?L ??HEMOGLOBIN?(gm/dl) 10.2?L 10.4?L ??HEMATOCRIT?(%) 30.8?L 32.3?L ??PLATELET?COUNT?(Thou/mm3) 122?L 140 ??NEUTROPHILS?%,?AUTO?(%) 53 71 ??LYMPH?%,?AUTO?(%) 26 18 ??NEUTROPHILS,?AUTO?(Thou/mm3) 2.8 4.7 ??GLUCOSE,RANDOM?(mg/dL) 105 146?H ??BLOOD?UREA?NITROGEN?(mg/dL) 25?H 18 ??CREATININE?(mg/dL) 1.70?H 1.50?H ??SODIUM?(mmol/L) 139 140 ??POTASSIUM?(mmol/L) 3.8 3.8 ??CHLORIDE?(mmol/L) 106 104 ??CrCl?(CandG)?(ml/min) 24.07 31.58 ??AST/SGOT?(Unit/L) 33 26 ??ALT/SGPT?(Unit/L) <?7?L <?7?L ??ALKALINE?PHOSPHATASE?(Unit/L) 123?H 108 ??BILIRUBIN,?TOTAL?(mg/dL) 0.5 1.0 ??PROTEIN?TOTAL?(gm/dl) 6.7 6.9 ??ALBUMIN,?SERUM?(gm/dl) 3.7 3.8 ??GLOBULIN?(gm/dl) 3.0 3.1 ??ALBUMIN/GLOBULIN?RATIO 1.2 1.2 ??CALCIUM,?SERUM?(mg/dL) 8.7 9.3 ??CALCIUM?SERUM?(CORRECTED)?(mg/dL) 8.9 9.5 ASSESSMENT/PLAN:?Atiya Austin Assessment/Plan? Discussed with Ms. Field that she has metastatic cancer in the liver which is progressing and also likely cause of her worsening pain I recommended that we start chemotherapy Patient at this time have not decided to do further chemotherapy She will reach to the clinic after she make her decision Patient will need to hold hospice at this time ORDERS: Order # Description RETURN TO CLINIC: I reviewed the diagnosis, prognosis, and recommended treatment/procedure options with the patient (and/or their legal business center representative), including the potential benefits, risks, side effects and alternative therapies. We also discussed the option of no treatment and the possibility of clinical trial participation, if applicable. All questions were addressed, and they demonstrated understanding. They provided informed consent to proceed with the proposed plan of care. BILLING AND COMPLIANCE: I reviewed external records from providers outside my specialty as summarized above. I spent a total of 50 minutes on this patient?s care on the day of their visit excluding time spent related to any billed procedures. This time includes time spent with the patient as well as time spent documenting in the medical record, reviewing patients records and tests, obtaining history, placing orders, communicating with other healthcare professionals, counseling the patient, family or caregiver, and/or care coordination for the diagnoses above. Electronically Signed by: {Object.Sanct_ID*PnP.NameFL@M}, {Object.Sanct_ID*PnP.Suffix@U} D: {Object.Sanct_Date} T: {Object.Sanct_Time} CC: PCP: Félix Delgado Referring: Félix Delgado This document was completed utilizing speech recognition software. Grammatical errors, random word insertions, pronoun errors, and incomplete sentences are an occasional consequence of this system due to software limitations, ambient noise, and hardware issues. Any formal questions or concerns about the content, text or information contained within the body of this dictation should be directly addressed to the provider for clarification.
== END 2025-02-14 23:59 | disposition home or self-care (01) ==
LOC: SCTC 13:31
PROVIDERS: PCP Internal Medicine; Referring Provider Internal Medicine; Visit Provider Internal Medicine Hematology & Oncology
DX: Z51.11 Encounter for antineoplastic chemotherapy (principal); C78.7 Secondary malignant neoplasm of liver and intrahepatic bile duct; G89.3 Neoplasm related pain (acute) (chronic)
CPT/HCPCS: 36415; 36430; 36591; 80053; 82105; 84443; 85025; 86301; 96360; 96361; 96366; 96367; 96372; 96375; 96413; 96415; 96549; 99212; A4216; J1642; J2405; J7030; J7040; J7050; J9173; G0463

== ENCOUNTER → 2025-03-08 | Outpatient (CLI) | payer MEDICARE, SELFPAY ==
--- NOTE | 2025-03-08 | XR_ITS ---
Examination: Retroperitoneal ultrasound, complete Technique: Multiple high resolution grayscale images of the retroperitoneum obtained, including kidneys and bladder. Exam date and time:March 08, 2025 1143 hours INDICATIONS: Acute renal insufficiency on laboratory examination one month ago FINDINGS: Right kidney 8.9 cm cortex 1.4 cm Left kidney 10.1 cm cortex 2.2 cm Moderate renal scar formation No hydronephrosis Contracted urinary bladder IMPRESSION: Small right kidney with right renal cortical thinning Moderate bilateral renal parenchymal scar formation
== END | disposition home or self-care (01) ==
PROVIDERS: PCP Internal Medicine; Referring Provider Internal Medicine Endocrinology, Diabetes & Metabolism; Visit Provider Internal Medicine
DX: N28.89 Other specified disorders of kidney and ureter (principal)
CPT/HCPCS: 76770

== ENCOUNTER → 2025-03-11 | Outpatient (CLI) | payer MEDICARE, SELFPAY ==
[2025-03-11 08:10] LABS: Collection Type, Urine Clean Catch
[2025-03-11 08:48] LABS: Basophils # (Auto) 0.0 Thou/mm3 (0.0-0.2); Basophils % (Auto) 1 % (0-2.5); Eosinophils # (Auto) 0.1 Thou/mm3 (0.0-0.5); Eosinophils % (Auto) 2 % (0-10); Hematocrit 33.4 % (36.0-46.0); Hemoglobin 11.0 g/dL (12.0-16.0); Immature Granulocytes Auto 0.01 Thou/mm3 (0.00-0.00); Lymphocytes # (Auto) 1.5 Thou/mm3 (1.0-4.8); Lymphocytes % (Auto) 29 % (10-50); Mean Corpuscular HGB Conc 32.9 g/dl (31.0-37.0); Mean Corpuscular Hemoglobin 32.1 pg (25.0-35.0); Mean Corpuscular Volume 97 fL (80-100); Monocytes # (Auto) 0.4 Thou/mm3 (0.0-0.8); Monocytes % (Auto) 8 % (0-12); Neutrophils # (Auto) 3.1 Thou/mm3 (1.8-7.7); Neutrophils % (Auto) 60 % (37-80); Nucleated Red Blood Cell # 0.00 Thou/mm3 (0.00-0.00); Nucleated Red Blood Cell % 0 /100 WBC (0); Platelet Count 146 Thou/mm3 (140-440); RDW Standard Deviation 67.0 fL (36.4-46.3); Red Blood Count 3.43 Miln/mm3 (4.00-5.20); White Blood Count 5.1 Thou/mm3 (3.6-11.0)
[2025-03-11 09:06] LABS: Vitamin D 25 Hydroxy Total 23.6 ng/mL (7.3-40.2)
[2025-03-11 09:09] LABS: Alanine Aminotransferase 22 U/L (10-49); Albumin, Serum 3.9 gm/dL (3.4-4.8); Albumin/Globulin Ratio 1.3 (1.2-2.2); Alkaline Phosphatase 97 U/L (46-116); Anion Gap 11 (7-16); Aspartate Amino Transferase 75 U/L (0-34); BUN/Creatinine Ratio 15 Ratio (12-20); Bilirubin,Total 1.2 mg/dL (0.3-1.2); Blood Urea Nitrogen 22 mg/dL (9-23); Calcium 9.9 mg/dL (8.3-10.6); Calcium (Corrected) 10.0 mg/dL (8.5-10.1); Carbon Dioxide 24.1 mMol/L (20.0-31.0); Cardiac Risk Estimate 1.9 RATIO (3.7-5.6); Chloride 97 mMol/L (98-107); Cholesterol 113 mg/dL (132-200); Creatinine (Component) 1.5 mg/dL (0.6-1.3); Free T3 2.0 pg/mL (2.3-4.2); Free T4 (Free Thyroxine) 1.51 ng/dL (0.89-1.76); Globulin 3.0 gm/dL (2.3-3.5); Glucose 89 mg/dL (74-106); HDL Cholesterol 60 mg/dL (40-60); LDL Cholesterol,Calculated 30 mg/dL (0-130); Osmolality,Calculated 266 (275-295); Potassium 4.6 mMol/L (3.4-5.1); Sodium 132 mMol/L (136-145); Thyroid Stimulating Hormone 3.72 uIU/mL (0.55-4.78); Total Protein 6.9 gm/dL (5.7-8.2); Triglycerides 113 mg/dL (30-150); eGFR 36 See Note
[2025-03-11 09:16] LABS: Creatinine MALB Rnd Ur 106 mg/dL (30-125); Microalbumin Creat Ratio 99 mg/gCrea (<30); Microalbumin, Random Urine 105 mg/L (0-300)
[2025-03-11 09:23] LABS: Glucose Estimated Average 123 mg/dL (80-131); Hemoglobin A1C 5.9 % Hgb (4.8-6.0)
[2025-03-11 09:33] LABS: Bacteria,Urine 1+; Bilirubin,Urine Negative (Negative); Blood,Urine 1+ (Negative); Color,Urine Yellow (Lt Yel-Yel); Glucose, Urine Negative (Negative); Ketones,Urine Negative (Negative); Leukocyte Esterase,Urine Positive (Negative); Nitrite,Urine Negative (Negative); PH,Urine 6.0 (5.0-7.0); Protein,Urine 1+ (Neg - Trace); RBC,Urine 26 /hpf (0-3); Specific Gravity,Urine 1.018 (1.001-1.035); Squamous Epithelial Cell,Urine 1 /hpf (0-5); Transitional Epi Cells,Urine 1 /hpf (0-5); Urobilinogen,Urine Negative mg/dL (0.0-1.0); WBC,Urine 1277 /hpf (0-5)
[2025-03-11 09:37] LABS: Clarity,Urine Turbid (Clear/Hazy)
[2025-03-19 07:07] LABS: TSI, Thyroid Stimulating Ig* <89 % baseline (<140); Thyroid Peroxidase Antibodies* <1 IU/mL (<9); Vitamin D,1,25 (OH)2,Total 15 pg/mL (18-72); Vitamin D2, 1,25 (OH)2 <8 pg/mL; Vitamin D3, 1,25 (OH)2 15 pg/mL; Zinc, Plasma* 64 mcg/dL (60-130)
== END | disposition home or self-care (01) ==
LOC: COPL 07:30
PROVIDERS: PCP Internal Medicine; Referring Provider Internal Medicine; Visit Provider Internal Medicine Endocrinology, Diabetes & Metabolism
DX: N17.9 Acute kidney failure, unspecified (principal); E03.9 Hypothyroidism, unspecified; I10 Essential (primary) hypertension; E78.5 Hyperlipidemia, unspecified; R79.89 Other specified abnormal findings of blood chemistry; Z85.05 Personal history of malignant neoplasm of liver
CPT/HCPCS: 36415; 80053; 80061; 81001; 82043; 82306; 82570; 82652; 83036; 84439; 84443; 84445; 84481; 84630; 85025; 86376

== ENCOUNTER 2025-03-13 13:39 | Outpatient (RCR) | payer MEDICARE, SELFPAY ==
[2025-03-01 11:37] LABS: Basophils # (Auto) 0.0 Thou/mm3 (0.0-0.2); Basophils % (Auto) 0 % (0-2.5); Eosinophils # (Auto) 0.2 Thou/mm3 (0.0-0.5); Eosinophils % (Auto) 3 % (0-10); Hematocrit 30.6 % (36.0-46.0); Hemoglobin 9.8 g/dL (12.0-16.0); Immature Granulocytes Auto 0.01 Thou/mm3 (0.00-0.00); Lymphocytes # (Auto) 1.4 Thou/mm3 (1.0-4.8); Lymphocytes % (Auto) 22 % (10-50); Mean Corpuscular HGB Conc 32.0 g/dl (31.0-37.0); Mean Corpuscular Hemoglobin 30.6 pg (25.0-35.0); Mean Corpuscular Volume 96 fL (80-100); Monocytes # (Auto) 0.3 Thou/mm3 (0.0-0.8); Monocytes % (Auto) 6 % (0-12); Neutrophils # (Auto) 4.2 Thou/mm3 (1.8-7.7); Neutrophils % (Auto) 69 % (37-80); Nucleated Red Blood Cell # 0.00 Thou/mm3 (0.00-0.00); Nucleated Red Blood Cell % 0 /100 WBC (0); Platelet Count 157 Thou/mm3 (140-440); RDW Standard Deviation 57.2 fL (36.4-46.3); Red Blood Count 3.20 Miln/mm3 (4.00-5.20); White Blood Count 6.0 Thou/mm3 (3.6-11.0)
[2025-03-01 11:57] LABS: Alanine Aminotransferase 9 U/L (10-49); Albumin, Serum 3.7 gm/dL (3.4-4.8); Albumin/Globulin Ratio 1.4 (1.2-2.2); Alkaline Phosphatase 119 U/L (46-116); Anion Gap 10 (7-16); Aspartate Amino Transferase 53 U/L (0-34); BUN/Creatinine Ratio 17 Ratio (12-20); Bilirubin,Total 0.8 mg/dL (0.3-1.2); Blood Urea Nitrogen 26 mg/dL (9-23); Calcium 8.9 mg/dL (8.3-10.6); Calcium (Corrected) 9.1 mg/dL (8.5-10.1); Carbon Dioxide 21.1 mMol/L (20.0-31.0); Chloride 102 mMol/L (98-107); Creatinine (Component) 1.5 mg/dL (0.6-1.3); Globulin 2.7 gm/dL (2.3-3.5); Glucose 95 mg/dL (74-106); Osmolality,Calculated 271 (275-295); Potassium 4.0 mMol/L (3.4-5.1); Sodium 133 mMol/L (136-145); Total Protein 6.4 gm/dL (5.7-8.2); eGFR 36 See Note
== END 2025-03-17 23:59 | disposition home or self-care (01) ==
LOC: SCTC 13:39
PROVIDERS: PCP Internal Medicine; Referring Provider Internal Medicine; Visit Provider Internal Medicine Hematology & Oncology
DX: C78.7 Secondary malignant neoplasm of liver and intrahepatic bile duct (principal)
CPT/HCPCS: 36591; 80053; 85025; 96360; A4216; J1642; J7030

== ENCOUNTER 2025-03-27 15:36 | Emergency (ER) | payer MEDICARE, SELFPAY ==
[2025-03-27 16:01] VITALS: BP 116/72; PULSE 93; RESP 18; TEMP 36.3; O2SAT 99
--- NOTE | 2025-03-27 16:16 | XR_ITS ---
Examination: CT abdomen with intravenous contrast CT pelvis with intravenous contrast 2-D coronal reconstructions 2-D sagittal reconstructions Date and time of exam:March 27 mm and 3 hrs. Comparison: November 03, 2023. Indications: Diagnosis cirrhosis, right lobe liver lesion 7.[address] study November 03, 2023.. CTDI: vol (mGy) 7.4. DLP: (mGycm) 421. Technique: Multiple axial sections of the abdomen and pelvis have been obtained. 64 slice high-resolution scanner used. 3 mm axial sections have been obtained, post intravenous injection 30 cc [id number]-300. 2-D sagittal, coronal reconstructions obtained. Low dose protocols were performed. One or more of the following dose reduction techniques were used; automated exposure control, adjustment of the mA and/or KV according to patient size, use of iterative reconstruction technique. Findings: 3 cm soft tissue mass destroying the right ninth rib, axial image 27 Multiple right lobe liver lesions, the largest, irregular contour, 7 cm, axial image 41 Spleen is not enlarged Absent gallbladder Common bile duct enlarged, 13 mm The pancreatic head is prominent 3 cm and there is edema around the superior mesenteric axis, axial image 74-year-old No hydronephrosis Aortic calcification no aneurysmal dilatation Extensive edema in the mesentery, for instance axial image 136, which may represent an early peritoneal carcinomatosis Normal appendix No bowel obstruction Colonic diverticulosis Contracted urinary bladder Prominent osteopenia Impression: Osseous metastatic disease involving the right ninth rib with 3 cm soft tissue mass Multiple liver lesions, the largest in the right lobe 7 cm, consider hepatocellular carcinoma Abnormal enlargement common bile duct 13 mm with prominent pancreatic head 3 cm and edema around the superior mesenteric axis, recommend MRCP, MRI abdomen liver follow-up pre and postcontrast Suspicious for early peritoneal carcinomatosis, which can also be assessed with the MRI abdomen examination
--- NOTE | 2025-03-27 16:17 | PD.EDRME ---
Rapid Medical Screening Exam RME Arrival date/time: 03/27/25 15:36 80-year-old female with a history of liver carcinoma reports with complaints of epigastric abdominal pain x 1 day Chief Complaint: Abdominal Pain Time Seen by Provider: 03/27/25 15:43 Vital signs: Vital Signs Temperature 97.4 F 03/27/25 16:01 Pulse Rate 93 03/27/25 16:01 Respiratory Rate 18 03/27/25 16:01 Blood Pressure 116/72 03/27/25 16:01 Pulse Oximetry (%) 99 03/27/25 16:01 Oxygen Delivery Method Room Air 03/27/25 16:01
[2025-03-27 16:44] LABS: Basophils # (Auto) 0.0 Thou/mm3 (0.0-0.2); Basophils % (Auto) 0 % (0-2.5); Eosinophils # (Auto) 0.1 Thou/mm3 (0.0-0.5); Eosinophils % (Auto) 1 % (0-10); Hematocrit 28.6 % (36.0-46.0); Hemoglobin 9.9 g/dL (12.0-16.0); Immature Granulocytes Auto 0.04 Thou/mm3 (0.00-0.00); Lymphocytes # (Auto) 1.6 Thou/mm3 (1.0-4.8); Lymphocytes % (Auto) 21 % (10-50); Mean Corpuscular HGB Conc 34.6 g/dl (31.0-37.0); Mean Corpuscular Hemoglobin 32.9 pg (25.0-35.0); Mean Corpuscular Volume 95 fL (80-100); Monocytes # (Auto) 1.3 Thou/mm3 (0.0-0.8); Monocytes % (Auto) 17 % (0-12); Neutrophils # (Auto) 4.5 Thou/mm3 (1.8-7.7); Neutrophils % (Auto) 60 % (37-80); Nucleated Red Blood Cell # 0.02 Thou/mm3 (0.00-0.00); Nucleated Red Blood Cell % 0 /100 WBC (0); Platelet Count 224 Thou/mm3 (140-440); RDW Standard Deviation 64.5 fL (36.4-46.3); Red Blood Count 3.01 Miln/mm3 (4.00-5.20); White Blood Count 7.6 Thou/mm3 (3.6-11.0)
[2025-03-27 17:02] LABS: Collection Type, Urine Clean Catch
[2025-03-27 17:16] LABS: Albumin, Serum 3.2 gm/dL (3.4-4.8); Albumin/Globulin Ratio 1.5 (1.2-2.2); Alkaline Phosphatase 90 U/L (46-116); Anion Gap 9 (7-16); Aspartate Amino Transferase 30 U/L (0-34); BUN/Creatinine Ratio 15 Ratio (12-20); Bilirubin,Total 0.7 mg/dL (0.3-1.2); Blood Urea Nitrogen 21 mg/dL (9-23); Calcium 8.6 mg/dL (8.3-10.6); Calcium (Corrected) 9.2 mg/dL (8.5-10.1); Carbon Dioxide 19.5 mMol/L (20.0-31.0); Chloride 97 mMol/L (98-107); Creatinine (Component) 1.4 mg/dL (0.6-1.3); Globulin 2.2 gm/dL (2.3-3.5); Glucose 114 mg/dL (74-106); Osmolality,Calculated 255 (275-295); Potassium 3.9 mMol/L (3.4-5.1); Sodium 125 mMol/L (136-145); Total Protein 5.4 gm/dL (5.7-8.2); eGFR 39 See Note
[2025-03-27 17:33] LABS: Bacteria,Urine Rare; Bilirubin,Urine Negative (Negative); Blood,Urine Negative (Negative); Clarity,Urine Clear (Clear/Hazy); Color,Urine Yellow (Lt Yel-Yel); Glucose, Urine Negative (Negative); Hyaline Casts,Urine < 1 /hpf (0-1); Ketones,Urine Negative (Negative); Leukocyte Esterase,Urine Positive (Negative); Nitrite,Urine Negative (Negative); PH,Urine 6.0 (5.0-7.0); Protein,Urine Negative (Neg - Trace); RBC,Urine < 1 /hpf (0-3); Specific Gravity,Urine 1.012 (1.001-1.035); Squamous Epithelial Cell,Urine < 1 /hpf (0-5); Urobilinogen,Urine Negative mg/dL (0.0-1.0); WBC,Urine 19 /hpf (0-5)
[2025-03-27 17:41] LABS: Culture Indicated,Urine Yes
--- NOTE | 2025-03-27 18:31 | XR_ITS ---
Examination: Abdomen sonogram, Limited Date and time of exam: September 14 thousand 25, 1850 hrs. Indications: Liver cancer diagnosis with epigastric pain noticed beginning 2 weeks ago. Multiple liver lesions, enlarged common bile duct 13 mm, prominent pancreatic head [address] abdomen pelvis study today. Technique: Real-time rivera scale transabdominal sonographic images of the upper abdomen obtained. Findings: Absent gallbladder Common bile duct measures 0.6 cm on this study no stones Pancreatic head is enlarged 3.5 cm Liver 12.9 cm irregular contour, multiple liver lesions, the largest fibroid mail inserter measured as 14 x 15 mm (CT examination demonstrates much larger liver lesion Normal hepatopedal portal venous flow. Patent IVC Impression: Common bile duct 6 mm no stones Abnormal enlargement pancreatic head 3.5 cm Cirrhosis Multiple liver lesions, better demonstrated on CT abdomen study today
--- NOTE | 2025-03-27 18:43 | PD.EDABDPN ---
ED Abdominal Pain RME/HPI General Chief Complaint: Abdominal Pain Stated complaint: ABD PAIN X 1 WK Time seen by provider: 03/27/25 15:43 Arrival date/time: 03/27/25 15:36 RME / HPI RME / HPI narrative: 03/27/25 15:36 80-year-old female with a history of liver carcinoma reports with complaints of epigastric abdominal pain x 1 day ------- See [facility] for Dr. Chapman's HPI documentation. Related Data Home Medications ?Medication ?Instructions ?Recorded ?Confirmed magnesium 250 mg tablet 250 mg PO QDAY 10/08/24 10/08/24 ondansetron HCl 8 mg tablet 8 mg PO .PRN 10/08/24 10/08/24 potassium chloride 20 mEq 20 meq PO QDAY 10/08/24 10/08/24 tablet,extended release prochlorperazine maleate 10 mg 10 mg PO QDAY PRN 10/08/24 10/08/24 capsule,extended release sodium bicarbonate 325 mg tablet 325 mg PO BID 10/08/24 10/08/24 Previous Rx's ?Medication ?Instructions ?Recorded cefdinir 300 mg capsule 300 mg PO BID #14 caps 03/27/25 Allergies Allergy/AdvReac Type Severity Reaction Status Date / Time ciprofloxacin Allergy Severe HIVES Verified 03/27/25 15:40 lactose Allergy Intermediate Diarrhea Verified 03/27/25 15:40 latex Allergy Intermediate Hives Verified 03/27/25 15:40 adhesive tape Allergy Mild Hives Verified 03/27/25 15:40 Review of Systems Review of Systems Systems Reviewed: All systems reviewed, normal except as documented ED Exam Narrative Physical exam: See [facility] for Dr. Chapman's physical exam documentation. Course Quality Measures none Orders Category Date Time Status CT Screening NOW Care 03/27/25 16:[address] abdomen pelvis w con Stat Exams 03/27/25 16:16 Completed US abdomen limited Stat Exams 03/27/25 18:31 Completed Amylase Stat Lab 03/27/25 16:25 Completed Bilirubin,Direct Stat Lab 03/27/25 16:25 Completed CBC Stat Lab 03/27/25 16:25 Completed CMP [Comprehensive Metabolic Panel] Stat Lab 03/27/25 16:25 Completed Lipase Stat Lab 03/27/25 16:25 Completed Magnesium Stat Lab 03/27/25 16:25 Completed UA, C/S IF [Urinalysis, C/S if Indicated] Stat Lab 03/27/25 16:58 Completed Urine Culture Stat Lab 03/27/25 16:58 Received Famotidine Inj [Pepcid Inj] Med 03/27/25 18:43 Discontinued 20 mg IVP X1 ONE Morphine* Inj Med 03/27/25 18:43 Discontinued 4 mg IV X1 ONE Ondansetron Inj [Zofran Inj] Med 03/27/25 18:43 Discontinued 4 mg IVP X1 ONE Pantoprazole Inj [Protonix Inj] Med 03/27/25 18:43 Discontinued 40 mg IVP X1 ONE Sodium Chloride 0.9% 1000 ml [Ns] 1,000 ml Med 03/27/25 18:43 Discontinued IV 999 mls/hr cefTRIAXone/D5w 1gm IV premix [Rocephin/D5w 1gm IV Med 03/27/25 20:20 Discontinued premix] 1 gm in 50 ml IV X1 Vital Signs Vital signs: Vital Signs Temperature 97.4 F 03/27/25 16:01 Pulse Rate 93 03/27/25 16:01 Respiratory Rate 18 03/27/25 16:01 Blood Pressure 116/72 03/27/25 16:01 Pulse Oximetry (%) 99 03/27/25 16:01 Oxygen Delivery Method Room Air 03/27/25 16:01 Abdominal Pain MDM MDM Narrative MDM Narrative:: This section includes all my notes and documentations, including HPI, PE, and ED course. Nathen Chapman MD HPI: 80yo female with history of liver CA here with epigastric pain for the last several days. Patient has nausea, no vomiting. No other complaints reported. ROS: All negative except as documented in HPI. Physical Exam: General: Alert and oriented. No acute distress when remaining still. Eyes: Conjunctivae and lids clear. ENT: No nasal congestion. Neck: Supple. Heart: RRR. Lungs: No respiratory distress. Good air movement. No rhonchi, wheezing, rales. Abdomen: Soft with equivocal epigastric tenderness. Normal bowel sounds. No distension. No rebound or guarding. Back: No CVA tenderness. Skin: Warm and dry. Neuro: Alert and oriented X 3. I reviewed all diagnostic test results. My review of the abdominal ultrasound report is enlarged pancreas. My review of the CT abdomen pelvis report is liver cancer with metastasis. Blood tests remarkable for Na 125, Creatinine 1.4. UA remarkable for positive leukocyte esterase, 19 WBC, and bacteria. At this point, diagnoses include: Liver cancer GERD (gastroesophageal reflux disease) UTI (urinary tract infection) Treatment here included: Pepcid Protonix Morphine Zofran IV fluid Rocephin 1g IV Significant improvement noted. Recommended outpatient management. Based on my best medical judgment, made decision no further evaluation or treatment indicated at this time. Patient understands and agrees to the discharge instructions customized and printed, see below. Discharge Instructions from Dr. Chapman printed for you: 1. After extensive evaluation, your abdominal pain is due to your liver cancer and acid reflux (GERD). 2. Continue your pain medications at home and start Prilosec as prescribed by your doctor today. 3. Take cefdinir for urinary tract infection. For good hydration, increase oral fluid and maintain clear urine. If dark or yellow, increase oral fluid. 4. See your cancer doctor on 04/01/2025 for recheck and further care. Ask to review all test results and official radiology reports, to make sure you receive all necessary follow-ups and monitoring, including final urine culture results from today. 5. Seek immediate medical care with worsening or with any concerns. Nathen Chapman MD Patient data External records reviewed:: [facility] previous records (Per chart review, patient has no relevant previous ED visits.) Clinical information provided by:: patient Social determinants that could affect healthcare access:: none Patient has the following chronic illnesses:: liver CA How is presenting disease/condition affected by chronic disease/condition?: exacerbated by Evaluation data The following diagnostics were reviewed and interpreted by me:: lab results and radiology exam(s) Lab and/or radiology exams considered but not ordered:: none Interpretation Summary: I reviewed all diagnostic test results. My review of the abdominal ultrasound report is enlarged pancreas. My review of the CT abdomen pelvis report is liver cancer with metastasis. Blood tests remarkable for Na 125, Creatinine 1.4. UA remarkable for positive leukocyte esterase, 19 WBC, and bacteria. Medications / Prescriptions Medications or Prescriptions considered but not ordered:: none Medication administrations:: Medication Administration History Discontinued Medications Famotidine (Famotidine Inj 10 Mg/Ml Vial 2 Ml) 20 mg IVP X1 ONE Stop: 03/27/25 18:44 Last Admin: 03/27/25 19:37 Dose: 20 mg Documented By: EE Sodium Chloride (Ns) 1,000 mls @ 999 mls/hr IV .Q1H1M ONE Stop: 03/27/25 19:43 Last Infusion: 03/27/25 21:15 Dose: Infused Documented By: Admin: 03/27/25 19:45 Dose: 999 mls/hr Documented By: EE Ceftriaxone Sodium/Dextrose (Rocephin/D5w 1gm Iv Premix) 1 gm in 50 mls @ 100 mls/hr IV X1 ONE Stop: 03/27/25 20:49 Last Infusion: 03/27/25 21:15 Dose: Infused Documented By: Admin: 03/27/25 20:38 Dose: 100 mls/hr Documented By: EE Morphine Sulfate (Morphine Sulf Inj 4 Mg/Ml Vial) 4 mg IV X1 ONE Stop: 03/27/25 18:44 Last Admin: 03/27/25 19:38 Dose: 4 mg Documented By: EE Ondansetron HCl (Ondansetron Inj 2 Mg/Ml Inj 2 Ml) 4 mg IVP X1 ONE; Protocol Stop: 03/27/25 18:44 Last Admin: 03/27/25 19:37 Dose: 4 mg Documented By: EE Pantoprazole Sodium (Pantoprazole Inj 40 Mg Vial) 40 mg IVP X1 ONE Stop: 03/27/25 18:44 Last Admin: 03/27/25 19:37 Dose: 40 mg Documented By: EE Pepcid, Protonix, Morphine, Zofran, IV fluid, Rocephin Consultations Consultation(s) initiated? (list below): No Diagnosis Differential diagnosis abdominal pain: acute appendicitis, calculus of kidney, constipation, diverticulitis, endometriosis, gastroenteritis, pancreatitis, small bowel obstruction and other (Biliary colic, GERD, gastritis, PUD) Most likely diagnosis given after review of the tests above:: Liver cancer, GERD (gastroesophageal reflux disease), UTI (urinary tract infection) Admission Indicated Admission indicated?: not indicated Explain why admission is indicated or not indicated:: With significant improvement and no condition needing emergent intervention, there was no indication for admission. Admission Request Was there a request for admission?: No Disposition Plan Disposition Plan: Discharge Discharge Attestation Discharge Attestation: The patient and all family members were given an opportunity to ask questions and understood the discharge instructions. Discharge instructions specifically effects, indications for sooner follow up or return to the emergency department, and the expected course of current diagnosis. Patient condition: Stable Discharge Plan Plan Patient Disposition: HOME (Self Care) Prescriptions/Referrals Prescriptions/Med Rec: New cefdinir 300 mg capsule 300 mg PO BID Qty: 14 0RF No Action prochlorperazine maleate 10 mg capsule, extended release 10 mg PO QDAY PRN ondansetron HCl 8 mg tablet 8 mg PO .PRN sodium bicarbonate 325 mg tablet 325 mg PO BID magnesium 250 mg tablet 250 mg PO QDAY potassium chloride 20 mEq tablet extended release 20 meq PO QDAY Referrals: Félix Delgado MD [Primary Care Provider, Nephrology] - In 1 week Problem List Clinical Impression: Liver cancer, GERD (gastroesophageal reflux disease), UTI (urinary tract infection) Patient/Caregiver Discharge Instructions Discharge Activity: activity as tolerated Education Materials: ED GERD (Adult), ED CYSTITIS Female Adult Additional Instructions: Discharge Instructions from Dr. Chapman printed for you: 1. After extensive evaluation, your abdominal pain is due to your liver cancer and acid reflux (GERD). 2. Continue your pain medications at home and start Prilosec as prescribed by your doctor today. 3. Take cefdinir for urinary tract infection. For good hydration, increase oral fluid and maintain clear urine. If dark or yellow, increase oral fluid. 4. See your cancer doctor on 04/01/2025 for recheck and further care. Ask to review all test results and official radiology reports, to make sure you receive all necessary follow-ups and monitoring, including final urine culture results from today. 5. Seek immediate medical care with worsening or with any concerns. Print Language: Indonesian Stand Alone Forms: [employer] Info., Patient Portal Info Letter
[2025-03-27 19:02] LABS: Alanine Aminotransferase 11 U/L (10-49); Lipase 65 U/L (12-53)
[2025-03-27] MEDS: ONDANSETRON INJ 2 MG/ML INJ 2 ML 4 MG IVP (19:37)
[2025-03-27] MEDS: FAMOTIDINE INJ 10 MG/ML VIAL 2 ML 20 MG IVP (19:37)
[2025-03-27] MEDS: MORPHINE SULF INJ 4 MG/ML VIAL IV (19:38)
[2025-03-27] MEDS: SODIUM CHLORIDE 0.9% 1000 ML 1,000 ML 999 ML IV (19:45)
[2025-03-27 19:46] LABS: Amylase 92 U/L (30-118); Bilirubin,Direct 0.3 mg/dL (0.0-0.3); Magnesium 1.7 mg/dL (1.6-2.6)
[2025-03-27] MEDS: cefTRIAXone/D5w 1gm IV premix 1 GM/50 ML BAG IV (20:38)
[2025-03-27 21:15] VITALS: BP 122/84; PULSE 89
== END 2025-03-27 21:16 | disposition home or self-care (01) ==
PROVIDERS: Physician Assistant; Emergency Provider Emergency Medicine; PCP Internal Medicine
DX: K21.9 Gastro-esophageal reflux disease without esophagitis (principal); C22.9 Malignant neoplasm of liver, not specified as primary or secondary; N39.0 Urinary tract infection, site not specified; K86.89 Other specified diseases of pancreas
CPT/HCPCS: 36415; 74177; 76705; 80053; 81001; 82150; 82248; 83690; 83735; 85025; 87086; 96361; 96365; 96375; 99284; A4649; J0696; J2270; J2405; J2470; J3490; J7030; Q9967

== ENCOUNTER → 2025-04-04 | Outpatient (CLI) | payer MEDICARE, SELFPAY ==
--- NOTE | 2025-04-04 10:30 | ECHO_ITS ---
Transthoracic Echo Report Ht (in): 61 Wt (lb): 143 Exam Location: Echo Lab Status: Preadmit Python Programmer: Alissa Sr Indications: Procedure Performed: BP: 125 / 74 HR: 82 MEASUREMENTS (Male / Female) Normal Values 2D ECHO LV Diastolic Diameter PLAX 4.0 cm 4.2 - 5.9 / 3.9 - 5.3 cm LV Systolic Diameter PLAX 2.5 cm IVS Diastolic Thickness 1.0 cm 0.6 - 1.0 / 0.6 - 0.9 cm LVPW Diastolic Thickness 1.0 cm 0.6 - 1.0 / 0.6 - 0.9 cm LV Relative Wall Thickness 0.5 LVOT Diameter 1.8 cm LA Volume Index 36.4 cm?/m? 16 - 28 cm?/m? Ascending Aorta Diameter 2.9 cm M-MODE AV Cusp Separation MM 1.2 cm DOPPLER AV Peak Velocity 148.0 cm/s AV Peak Gradient 8.8 mmHg AV Mean Gradient 5.0 mmHg AV Velocity Time Integral 27.1 cm LVOT Peak Velocity 110.0 cm/s LVOT Peak Gradient 4.8 mmHg LVOT Velocity Time Integral 16.3 cm LVOT Cardiac Index 2013.7 cm?/min?m? AV Area Cont Eq vti 1.5 cm? AV Area Cont Eq pk 1.9 cm? MV Area PHT 3.5 cm? Mitral E Point Velocity 66.5 cm/s Mitral A Point Velocity 111.0 cm/s Mitral E to A Ratio 0.6 LV E' Lateral Velocity 4.7 cm/s Mitral E to LV E' Lateral Ratio 14.2 LV E' Septal Velocity 3.7 cm/s Mitral E to LV E' Septal Ratio 18.0 TR Peak Velocity 206.5 cm/s TR Peak Gradient 17.1 mmHg PV Peak Velocity 105.0 cm/s PV Peak Gradient 4.4 mmHg FINDINGS Left Ventricle Normal left ventricular size, wall thickness, systolic function with no obvious regional wall motion abnormalities. There is grade I diastolic dysfunction of the left ventricle (impaired relaxation pattern). The ejection fraction is visually estimated at 55-60 %. Right Ventricle The right ventricle is normal in size and systolic function. The estimated right ventricular systolic pressure, 32 mmHg with RAP 3. Left Atrium The left atrium is normal by two-dimensional, color flow and Doppler imaging with no structural abnormalities, no thrombus formation present. Right Atrium The right atrium is normal by two-dimensional imaging, color flow and Doppler imaging with no structural abnormalities, no thrombus formation present. Atrial Septum The interatrial septum appears normal with no evidence of a shunt. Aorta The aorta is normal by two-dimensional, color flow and Doppler interrogation. Mitral Valve Mitral annular calcification. Trace mitral regurgitation. Aortic Valve Aortic valve sclerosis without stenosis Tricuspid Valve The tricuspid valve is normal by two-dimensional, color flow and Doppler interrogation. There is trace tricuspid valve regurgitation. Pulmonic Valve The pulmonic valve is not well visualized. Trivial pulmonic valve regurgitation. Vessels The pulmonary artery appears normal. The inferior vena cava pulmonary and hepatic veins appear normal. Pericardium The pericardium is normal by two-dimensional imaging. There is no significant pericardial effusion. 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 Normal left ventricular size and function. Approximate ejection fraction is 65%. Grade I diastolic dysfunction The right ventricle is normal in size and systolic function. RVSP 32mmHg with RAP 3 Moderate posterior mitral annukus calcification with mild MR Mary SagarReddy (Electronically Signed) Final Date: 04 April 2025 15:16
== END | disposition home or self-care (01) ==
LOC: SDIM 10:14
PROVIDERS: PCP Internal Medicine; Referring Provider Internal Medicine Hematology & Oncology; Visit Provider Internal Medicine Hematology & Oncology
DX: I50.30 Unspecified diastolic (congestive) heart failure (principal); I25.10 Atherosclerotic heart disease of native coronary artery without angina pectoris; I34.81 Nonrheumatic mitral (valve) annulus calcification; C78.7 Secondary malignant neoplasm of liver and intrahepatic bile duct
CPT/HCPCS: 93306

== ENCOUNTER 2025-04-11 14:33 | Outpatient (RCR) | payer MEDICARE, SELFPAY ==
--- NOTE | 2025-03-20 15:27 | CTCCONSULT_ITS ---
[facility] [place], [place] [address] Consultation Note Date: 03/20/2025 MR#: [id number] Name: NAKIA GARCIA : 1945 attending physician. Dx: C78.7 Secondary malignant neoplasm of liver and intrahepatic bile duct Attending physician. Félix Delgado MD Referring physician. David Austin MD Reason for consultation. Patient with metastatic cholangiocarcinoma referred for palliative care consultation. History of Present Illness: Patient is a 79-year-old lady diagnosed with metastatic moderate differential adenocarcinoma evolving the liver parenchyma biopsy of liver 08/12/2023. Received durvalumab [place] gemcitabine starting in 12/07/2023 and also completed chemoembolization. Signatera test 12/06/2024 indicated cancer progression. Patient referred for palliative care consultation. Patient currently bothered by neuropathy symptoms in her feet along with pain in her right upper quadrant. Taking oxycodone 5 with some relief. Recent MRI 11/23/2024 suggest progression of disease. Past Medical History: History of uterine cancer cholecystectomy lumbar laminectomy CLARISSE/BSO Medications. Capecitabine Lomotil magnesium oxide Sunil Strahl oxycodone 5 to every 6 as needed pain prochlorperazine senna and acid tramadol 50 mg as needed Tylenol Zofran Family history. 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 Pain in abdomen reportedly controlled with oxycodone 5 as needed. Physical Exam: General: Adequate nourished appearing lady no acute distress HEENT: Atraumatic no cephalic extraocular is intact no oral lesions no cervical or supraclavicular adenopathy eyes nonicteric CV: Chest clear to s auscultation ABD: right upper quadrant tenderness EXT: Bilateral lower extremity edema Assessment:1. 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 2. Underwent chemoembolization and has received durvalumab [place] gemcitabine at [facility]. Currently discussing with Dr. Austin about continuation of chemotherapy. 3. Experiencing right upper quadrant pain and lower extremity neuropathy. 4. Has been prescribed oxycodone 5 3 times daily and this reportedly is managing her abdominal pain. Pt states that Dr. Delgado has prescribed a new medication, possibly gabapentin, to deal with the neuropathy problem. 5. Cures website checked. Patient will be contacting me for any renewal of pain meds and I will see her as needed. 6. Thank you very much for allowing me to evaluate and manage this patient. Cc: Félix Delgado MD Electronically signed by: Mauricio Chapman MD, DABR 03/20/2025 3:25 PM
--- NOTE | 2025-03-31 23:33 | CTCFLWUP_ITS ---
Patient: NAKIA FIELD : 1945 Page 2 of 3 FOLLOW UP NOTE DATE OF SERVICE: 03/27/2025 NAME: NAKIA FIELD ACCOUNT: [id number] : 1945 AGE: 80 INTERVAL HISTORY: Patient was seen with her daughter in the clinic. Patient has been feeling more fatigued and tired. Patient was initially treated for her cholangiocarcinoma with cisplatin gemcitabine and maintenance durvalumab. Patient unfortunately progressed and at that time initially patient was very reluctant to continue any further chemotherapy as she understand her overall prognosis is poor. Patient was havi ng increasing pain and at that time patient agreed to take oral chemotherapy medicine and Xeloda was started. Patient has been on Xeloda. She says that her pain has not worsened and is almost at the same level as previously. ONCOLOGY HISTORY: DIAGNOSIS: Secondary malignant neoplasm of liver and intrahepatic bile duct [ICD10] C78.7 Secondary malignant neoplasm of liver and intrahepatic bile duct [ICD10] C78.7 DATE OF DIAGNOSIS: 06/20/2023 PATHOLOGY: Cholangiocarcinoma STAGE/TNM: Locally advanced to the liver mets TREATMENT HISTORY: Care?Plan Start?Date Cycle Day Intent Durvalumab,?cisplatin?and?gemcitabine?cholangiocarcinoma?regimen?1 12/07/2023 1 21 Palliative Durvalumab?maintenance?cholangiocarcinoma?regimen?2 07/26/2024 1 28 Maintenance Currently on Xeloda HISTORY OF PRESENT ILLNESS: 80-year-old female with metastatic moderately differentiated adenocarcinoma hepatobiliary involving liver OTHER MEDICAL HISTORY/CONDITIONS: Metastatic moderately differentiated adenocarcinoma involving liver- dx 08/14/23 HTN Uterine cancer - 1975 Cholecycystectomy - 15 yrs ago Lumbar laminectomy - 10 yrs ago CLARISSE; BSO - 1975 FAMILY HISTORY: Children:?Dtr?-?Cervical?-?dx?age?49 SOCIAL HISTORY: Occupational?History:?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 Tobacco?Use:?Denies ETOH?Use:?Denies Drug?Note:?Denies Social History Note:?Lives alone - daughters stay frequently [employer] HISTORY: Menarche?-?Age:?12 Menopause:?1975 :?6 Live?Births:?4 Age?1st?:?24 MEDICATIONS: 1. antacid Extra-Strength - 500 mg Twice a Day 2. Ativan - 0.5 mg 1 tab Daily 3. capecitabine - 500 mg 3 tab tiwice a day for 14 days then 7 days off 4. furosemide - 20 mg 1 tab As directed 5. gabapentin - 100 mg 2 Capsule Twice a Day 6. levothyroxine - 50 mcg 1 Capsule Daily 7. Lomotil - 2.5-0.025 mg 1 tab one po four times a day prn diarrhea 8. magnesium oxide - 200 mg magnesium 2 tab Daily 9. megestrol - 400 mg/10 mL (40 mg/mL) 10 mL Daily 10. oxycodone-acetaminophen - 5-325 mg 1 tab 1 tab as needed every 8 hrs as needed for pain 11. prochlorperazine - 10 mg 1 tab Daily 12. Protonix - 40 mg 1 tab Daily 13. Renal-Aníbal - 0.8 mg 1 tab Daily 14. senna - 8.6 mg 2 tab Daily 15. sodium bicarbonate - 325 mg 1 tab Daily 16. sodium bicarbonate (antacid) - 325 mg tab As directed 17. Tylenol - 325 mg tab As needed 18. Zofran - 8 mg 1 tab As needed Medications Last Reconciled by Jessica Lopez MD on 03/27/2025 ALLERGIES: ciprofloxacin REVIEW OF SYSTEMS: A complete 14-point review of systems was performed and is negative except as noted in interval history. PHYSICAL EXAMINATION: VITAL SIGNS: Temperature?98.7, B/P?124/72, Oxygen?Saturation?98% Weight?146?lbs (Change?since?03/20/25:?0?lbs) PAIN: 0 - No pain ECOG Performance Status: 3 - Symptomatic; limited self-care; spends >50% of time in bed, not bedridden The patient appeared well-nourished, alert, and in no apparent distress via video conferencing. LABORATORY DATA: I have personally reviewed and interpreted each of the patient?s relevant lab tests, abnormal findings are below: Date 03/11/25 03/27/25 ??WHITE?BLOOD?COUNT?(Thou/mm3) 5.1 7.6 ??RED?BLOOD?COUNT?(Miln/mm3) 3.43?L 3.01?L ??HEMOGLOBIN?(gm/dl) 11.0?L 9.9?L ??HEMATOCRIT?(%) 33.4?L 28.6?L ??PLATELET?COUNT?(Thou/mm3) 146 224 ??NEUTROPHILS?%,?AUTO?(%) 60 60 ??LYMPH?%,?AUTO?(%) 29 21 ??NEUTROPHILS,?AUTO?(Thou/mm3) 3.1 4.5 ??GLUCOSE,RANDOM?(mg/dL) ? 114?H ??BLOOD?UREA?NITROGEN?(mg/dL) ? 21 ??CREATININE?(mg/dL) ? 1.40?H ??SODIUM?(mmol/L) ? 125?L ??POTASSIUM?(mmol/L) ? 3.9 ??CHLORIDE?(mmol/L) ? 97?L ??CrCl?(CandG)?(ml/min) ? 29.22 ??AST/SGOT?(Unit/L) ? 30 ??ALT/SGPT?(Unit/L) ? 11 ??ALKALINE?PHOSPHATASE?(Unit/L) ? 90 ??BILIRUBIN,?TOTAL?(mg/dL) ? 0.7 ??PROTEIN?TOTAL?(gm/dl) ? 5.4?L ??ALBUMIN,?SERUM?(gm/dl) ? 3.2?L ??GLOBULIN?(gm/dl) ? 2.2?L ??ALBUMIN/GLOBULIN?RATIO ? 1.5 ??CALCIUM,?SERUM?(mg/dL) ? 8.6 ??CALCIUM?SERUM?(CORRECTED)?(mg/dL) ? 9.2 ??MAGNESIUM?(mg/dL) ? 1.7 ASSESSMENT/PLAN: Metastatic cholangiocarcinoma Patient has many liver lesions and likely cause of her pain On palliative chemotherapy with this capecitabine Discussed hospice with Ms. Field and daughter Patient's daughter is very reluctant for hospice Will order home health care and DME orders for hospital bed Preferred subsequent line therapy FOLFOX can be offered to Ms. Field Patient is not willing for intravenous therapy Will get imaging to evaluate If seeing progression will start FOLFOX ORDERS: Order # Description [id number] Comprehensive Metabolic Panel - 12 + CBC with Auto Diff + CEA [id number] Comprehensive Metabolic Panel - 12 + CBC with Auto Diff + CEA + PSA [id number] CT Scan + Chest + Abdomen and Pelvis + With W/O Contrast [id number] RETURN TO CLINIC: I reviewed the diagnosis, prognosis, and recommended treatment/procedure options with the patient (and/or their legal patient portal representative), including the potential benefits, risks, side effects and alternative therapies. We also discussed the option of no treatment and the possibility of clinical trial participation, if applicable. All questions were addressed, and they demonstrated understanding. They provided informed consent to proceed with the proposed plan of care. BILLING AND COMPLIANCE: I reviewed external records from providers outside my specialty as summarized above. I spent a total of 50 minutes on this patient?s care on the day of their visit excluding time spent related to any billed procedures. This time includes time spent with the patient as well as time spent documenting in the medical record, reviewing patients records and tests, obtaining history, placing orders, communicating with other healthcare professionals, counseling the patient, family or caregiver, and/or care coordination for the diagnoses above. Electronically Signed by: David Austin MD T: 11:30 PM CC: PCP: Félix Delgado Referring: Félix Delgado This document was completed utilizing speech recognition software. Grammatical errors, random word insertions, pronoun errors, and incomplete sentences are an occasional consequence of this system due to software limitations, ambient noise, and hardware issues. Any formal questions or concerns about the content, text or information contained within the body of this dictation should be directly addressed to the provider for clarification.
--- NOTE | 2025-04-15 01:59 | CTCFLWUP_ITS ---
Patient: NAKIA FIELD : 1945 Page 7 of 7 FOLLOW UP NOTE DATE OF SERVICE: 04/11/2025 NAME: NAKIA FIELD ACCOUNT: [id number] : 1945 AGE: 80 INTERVAL HISTORY: Patient was seen with her daughter in the clinic. Patient has been feeling more fatigued and tired. Patient was initially treated for her cholangiocarcinoma with cisplatin gemcitabine and maintenance durvalumab. Patient unfortunately progressed and at that time initially patient was very reluctant to continue any further chemotherapy as she understand her overall prognosis is poor. Patient was havi ng increasing pain and at that time patient agreed to take oral chemotherapy medicine and Xeloda was started. Patient had good response to Xeloda and had naterra showed decrease in CT DNA. Patient and her daughters have decided not to take further oral chemotherapy and requesting to do intravenous chemotherapy. Extensively discussed that patient is having a good response to oral chemotherapy with Xeloda and no side effects. I will start Ms. Field on intravenous chemotherapy as per patient and family request. Patient takes [id number] pain medications and for family do not take part in her ADLs. ONCOLOGY HISTORY: DIAGNOSIS: Secondary malignant neoplasm of liver and intrahepatic bile duct [ICD10] C78.7 Secondary malignant neoplasm of liver and intrahepatic bile duct [ICD10] C78.7 DATE OF DIAGNOSIS: 06/20/2023 PATHOLOGY: Cholangiocarcinoma STAGE/TNM: Locally advanced to the liver mets TREATMENT HISTORY: Care?Plan Start?Date Cycle Day Intent Durvalumab,?cisplatin?and?gemcitabine?cholangiocarcinoma?regimen?1 12/07/2023 1 21 Palliative Durvalumab?maintenance?cholangiocarcinoma?regimen?2 07/26/2024 1 28 Maintenance mFOLFOX-6?-?5FU?400?+?2400?CIV,?LVR?400,OXALIplat?85?stomach 03/31/2025 1 14 Palliative HISTORY OF PRESENT ILLNESS: 80-year-old female with 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 antacid Extra-Strength - 500 mg Twice a Day 2. Ativan - 0.5 mg 1 tab Daily 3. capecitabine - 500 mg 3 tab tiwice a day for 14 days then 7 days off 4. furosemide - 20 mg 1 tab As directed 5. gabapentin - 100 mg 2 Capsule Twice a Day 6. levothyroxine - 50 mcg 1 Capsule Daily 7. Lomotil - 2.5-0.025 mg 1 tab one po four times a day prn diarrhea 8. magnesium oxide - 200 mg magnesium 2 tab Daily 9. megestrol - 400 mg/10 mL (40 mg/mL) 10 mL Daily 10. oxycodone-acetaminophen - 5-325 mg 1 tab 1 tab as needed every 8 hrs as needed for pain 11. pantoprazole - 40 mg 1 Daily 12. prochlorperazine - 10 mg 1 tab Daily 13. Renal-Aníbal - 0.8 mg 1 tab Daily 14. senna - 8.6 mg 2 tab Daily 15. sodium bicarbonate - 325 mg 1 tab Daily 16. sodium bicarbonate (antacid) - 325 mg tab As directed 17. Tylenol - 325 mg tab As needed 18. Zofran - 8 mg 1 tab As needed Medications Last Reconciled by Jessica Lopez MD on 03/27/2025 (Reconcile on Approval: ?) ALLERGIES: ciprofloxacin REVIEW OF SYSTEMS: A complete 14-point review of systems was performed and is negative except as noted in interval history. PHYSICAL EXAMINATION: VITAL SIGNS: Temperature?98.5, B/P?137/73, Oxygen?Saturation?99% Weight?146?lbs (Change?since?03/27/25:?0?lbs) PAIN: 0 - No pain ECOG Performance Status: 2 - Symptomatic; ambulatory; capable of self-care; >50% of waking hrs. not in bed The patient appeared well-nourished, alert, and in no apparent distress LABORATORY DATA: I have personally reviewed and interpreted each of the patient?s relevant lab tests, abnormal findings are below: Date 03/11/25 03/27/25 ??WHITE?BLOOD?COUNT?(Thou/mm3) 5.1 7.6 ??RED?BLOOD?COUNT?(Miln/mm3) 3.43?L 3.01?L ??HEMOGLOBIN?(gm/dl) 11.0?L 9.9?L ??HEMATOCRIT?(%) 33.4?L 28.6?L ??PLATELET?COUNT?(Thou/mm3) 146 224 ??NEUTROPHILS?%,?AUTO?(%) 60 60 ??LYMPH?%,?AUTO?(%) 29 21 ??NEUTROPHILS,?AUTO?(Thou/mm3) 3.1 4.5 ??GLUCOSE,RANDOM?(mg/dL) ? 114?H ??BLOOD?UREA?NITROGEN?(mg/dL) ? 21 ??CREATININE?(mg/dL) ? 1.40?H ??SODIUM?(mmol/L) ? 125?L ??POTASSIUM?(mmol/L) ? 3.9 ??CHLORIDE?(mmol/L) ? 97?L ??CrCl?(CandG)?(ml/min) ? 29.22 ??AST/SGOT?(Unit/L) ? 30 ??ALT/SGPT?(Unit/L) ? 11 ??ALKALINE?PHOSPHATASE?(Unit/L) ? 90 ??BILIRUBIN,?TOTAL?(mg/dL) ? 0.7 ??PROTEIN?TOTAL?(gm/dl) ? 5.4?L ??ALBUMIN,?SERUM?(gm/dl) ? 3.2?L ??GLOBULIN?(gm/dl) ? 2.2?L ??ALBUMIN/GLOBULIN?RATIO ? 1.5 ??CALCIUM,?SERUM?(mg/dL) ? 8.6 ??CALCIUM?SERUM?(CORRECTED)?(mg/dL) ? 9.2 ??MAGNESIUM?(mg/dL) ? 1.7 ASSESSMENT/PLAN: Metastatic cholangiocarcinoma Patient has many liver lesions and likely cause of her pain Patient was on palliative chemotherapy with capecitabine with a good results as shown in CT DNA Will change chemotherapy to FOLFOX Patient and family want aggressive chemotherapy to reduce pain from the cancer Patient says that her pain may be 4-5 but with pain medicine her pain is not persistent Extensively counseled patient and family and advised to follow-up with Dr. Chapman for pain medicines I have already ordered Ativan for patient to help sleep. Patient is sleeping better Patient and family have a lot of grief secondary to malignancy Advised referral to hospice Patient and family at this time want to pursue further aggressive therapy Will continue chemotherapy ORDERS: Order # Description [id number] Discontinue CIV Pump [id number] CBC + Comprehensive Metabolic Panel + CEA [id number] Lab Appointment [id number] Follow Up Appointment [id number] Infusion 5 Hours [id number] Discontinue CIV Pump [id number] CBC + Comprehensive Metabolic Panel + CEA [id number] Lab Appointment [id number] Follow Up Appointment [id number] Infusion 5 Hours [id number] Discontinue CIV Pump [id number] CBC + Comprehensive Metabolic Panel + CEA [id number] Lab Appointment [id number] Follow Up Appointment [id number] Infusion 5 Hours [id number] Discontinue CIV Pump [id number] CBC + Comprehensive Metabolic Panel + CEA [id number] Lab Appointment [id number] Follow Up Appointment [id number] Infusion 5 Hours [id number] Discontinue CIV Pump [id number] CBC + Comprehensive Metabolic Panel + CEA [id number] Lab Appointment [id number] Follow Up Appointment [id number] Infusion 5 Hours [id number] Discontinue CIV Pump [id number] CBC + Comprehensive Metabolic Panel + CEA [id number] Lab Appointment [id number] Follow Up Appointment [id number] Infusion 5 Hours [id number] Discontinue CIV Pump [id number] CBC + Comprehensive Metabolic Panel + CEA [id number] Lab Appointment [id number] Follow Up Appointment [id number] Infusion 5 Hours [id number] Discontinue CIV Pump [id number] CBC + Comprehensive Metabolic Panel + CEA [id number] Lab Appointment [id number] Follow Up Appointment [id number] Infusion 5 Hours [id number] Discontinue CIV Pump [id number] CBC + Comprehensive Metabolic Panel + CEA [id number] Lab Appointment [id number] Follow Up Appointment [id number] Infusion 5 Hours [id number] Discontinue CIV Pump [id number] CBC + Comprehensive Metabolic Panel + CEA [id number] Lab Appointment [id number] Follow Up Appointment [id number] Infusion 5 Hours [id number] Discontinue CIV Pump [id number] CBC + Comprehensive Metabolic Panel + CEA [id number] Lab Appointment [id number] Follow Up Appointment RETURN TO CLINIC: I reviewed the diagnosis, prognosis, and recommended treatment/procedure options with the patient (and/or their legal cash application representative), including the potential benefits, risks, side effects and alternative therapies. We also discussed the option of no treatment and the possibility of clinical trial participation, if applicable. All questions were addressed, and they demonstrated understanding. They provided informed consent to proceed with the proposed plan of care. BILLING AND COMPLIANCE: I reviewed external records from providers outside my specialty as summarized above. I spent a total of 50 minutes on this patient?s care on the day of their visit excluding time spent related to any billed procedures. This time includes time spent with the patient as well as time spent documenting in the medical record, reviewing patients records and tests, obtaining history, placing orders, communicating with other healthcare professionals, counseling the patient, family or caregiver, and/or care coordination for the diagnoses above. Electronically Signed by: {Object.Sanct_ID*PnP.NameFL@M}, {Object.Sanct_ID*PnP.Suffix@U} D: {Object.Sanct_Date} T: {Object.Sanct_Time} CC: PCP: Félix Delgado Referring: Félix Delgado This document was completed utilizing speech recognition software. Grammatical errors, random word insertions, pronoun errors, and incomplete sentences are an occasional consequence of this system due to software limitations, ambient noise, and hardware issues. Any formal questions or concerns about the content, text or information contained within the body of this dictation should be directly addressed to the provider for clarification.
== END 2025-04-16 23:59 | disposition home or self-care (01) ==
LOC: SCTC 14:33
PROVIDERS: PCP Internal Medicine; Referring Provider Internal Medicine; Visit Provider Internal Medicine Hematology & Oncology
DX: C22.1 Intrahepatic bile duct carcinoma (principal); C79.51 Secondary malignant neoplasm of bone; G89.3 Neoplasm related pain (acute) (chronic); G62.9 Polyneuropathy, unspecified
CPT/HCPCS: 99212; 99213; G0463

== ENCOUNTER → 2025-04-18 | Outpatient (CLI) | payer MEDICARE, SELFPAY ==
--- NOTE | 2025-04-18 10:30 | XR_ITS ---
Examination: CT chest with intravenous contrast CT abdomen with intravenous contrast CT pelvis with intravenous contrast CT chest without intravenous contrast CT abdomen without intravenous contrast CT pelvis without intravenous contrast 2-D coronal and sagittal reconstructions Time of exam: April 18, 2025, 11:11 AM, comparison 03/27/2025 CT abdomen pelvis, CT abdomen November 03, 2023 INDICATIONS: Diagnosis malignant neoplasm liver and intrahepatic, CT abdomen pelvis 03/27/2025 3 cm soft tissue mass right ninth rib, multiple right lobe liver lesions, the largest 7 cm posterior upper right lobe the liver CTDI: vol (mGy) : 14.8 DLP: (mGycm): 1007 Technique: Multiple axial images of the chest, abdomen and pelvis with intravenous contrast, 3.0 mm slice thickness. Images obtained post intravenous injection Isovue 30 cc Isovue-300 2-D sagittal and coronal reconstructions. Low dose protocols were performed. One or more of the following dose reduction techniques were used; automated exposure control, adjustment of the mA and/or KV according to patient size, use of iterative reconstruction technique. Findings: Thoracic aortic calcification no aneurysmal dilatation No pulmonary artery filling defects on this non-CTA study No paratracheal tracheobronchial or bronchopulmonary adenopathy 2 mm pulmonary nodule left upper lobe image 86 2 mm pulmonary nodule anterior segment right upper lobe image 158 8mm pulmonary nodule lingular segment image 176 Soft tissue metastatic right seventh rib lesion which is stable in size compared with 03/27/2025 The posterior upper right lobe liver lesion measures 7.5 cm compared to 7.2 cm on 03/27/2025 The mid right liver lesion measures 14 mm compared to 13 mm on 03/27/2025 The 3-D liver lesions in the lateral right lobe of the liver are stable in size compared to prior study No new liver lesions Spleen is not enlarged Absent gallbladder Common hepatic duct 12 mm Normal adrenal glands No renal or ureteral calculi, no hydronephrosis Normal appendix Colonic diverticulosis, no diverticulitis No interval abdominal or pelvic lymphadenopathy IMPRESSION: Stable metastatic lesion right seventh rib No significant change in liver metastatic lesions compared to 03/27/2025 There remains extra hepatic biliary tract dilatation The pancreatic head measures 2.6 cm on this study Consider MRCP follow-up to assess the enlarged common bile duct No interval abdominal or pelvic lymphadenopathy
== END | disposition home or self-care (01) ==
LOC: CCTX 10:21
PROVIDERS: PCP Internal Medicine; Referring Provider Internal Medicine Hematology & Oncology; Visit Provider Internal Medicine Hematology & Oncology
DX: C79.51 Secondary malignant neoplasm of bone (principal); K83.8 Other specified diseases of biliary tract; C78.7 Secondary malignant neoplasm of liver and intrahepatic bile duct
CPT/HCPCS: 71270; 74178; A4649; Q9967

== ENCOUNTER 2025-04-22 17:09 | Emergency (ER) | payer MEDICARE, SELFPAY ==
[2025-04-22 17:17] VITALS: BP 162/90; PULSE 89; RESP 18; TEMP 37.2; O2SAT 99
--- NOTE | 2025-04-22 17:28 | EKG_ITS ---
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
--- NOTE | 2025-04-22 17:28 | PD.EDRME ---
Rapid Medical Screening Exam RME Arrival date/time: 04/22/25 17:09 This is a case of 80-year-old female with history of liver cancer on chemotherapy came in here due to to possible dehydration and hyponatremia patient was sent here by cancer clinic where the sodium were 125 patient currently complaining of general weakness and fatigue Chief Complaint: General Adult/Misc Complain Time Seen by Provider: 04/22/25 17:23 Vital signs: Vital Signs Temperature 99.0 F 04/22/25 17:17 Pulse Rate 89 04/22/25 17:17 Respiratory Rate 18 04/22/25 17:17 Blood Pressure 162/90 H 04/22/25 17:17 Pulse Oximetry (%) 99 04/22/25 17:17 Oxygen Delivery Method Room Air 04/22/25 17:17
[2025-04-22 17:44] LABS: Basophils # (Auto) 0.1 Thou/mm3 (0.0-0.2); Basophils % (Auto) 1 % (0-2.5); Eosinophils # (Auto) 0.2 Thou/mm3 (0.0-0.5); Eosinophils % (Auto) 3 % (0-10); Hematocrit 28.1 % (36.0-46.0); Hemoglobin 9.9 g/dL (12.0-16.0); Immature Granulocytes Auto 0.01 Thou/mm3 (0.00-0.00); Lymphocytes # (Auto) 1.4 Thou/mm3 (1.0-4.8); Lymphocytes % (Auto) 19 % (10-50); Mean Corpuscular HGB Conc 35.2 g/dl (31.0-37.0); Mean Corpuscular Hemoglobin 35.0 pg (25.0-35.0); Mean Corpuscular Volume 99 fL (80-100); Monocytes # (Auto) 1.0 Thou/mm3 (0.0-0.8); Monocytes % (Auto) 14 % (0-12); Neutrophils # (Auto) 4.5 Thou/mm3 (1.8-7.7); Neutrophils % (Auto) 64 % (37-80); Nucleated Red Blood Cell # 0.00 Thou/mm3 (0.00-0.00); Nucleated Red Blood Cell % 0 /100 WBC (0); Platelet Count 221 Thou/mm3 (140-440); RDW Standard Deviation 62.4 fL (36.4-46.3); Red Blood Count 2.83 Miln/mm3 (4.00-5.20); White Blood Count 7.1 Thou/mm3 (3.6-11.0)
[2025-04-22 18:12] LABS: Collection Type, Urine Clean Catch
[2025-04-22 18:23] LABS: Alanine Aminotransferase 12 U/L (10-49); Albumin, Serum 4.0 gm/dL (3.4-4.8); Albumin/Globulin Ratio 1.4 (1.2-2.2); Alkaline Phosphatase 131 U/L (46-116); Anion Gap 11 (7-16); Aspartate Amino Transferase 62 U/L (0-34); BUN/Creatinine Ratio 11 Ratio (12-20); Bilirubin,Total 0.7 mg/dL (0.3-1.2); Blood Urea Nitrogen 16 mg/dL (9-23); Calcium 10.2 mg/dL (8.3-10.6); Calcium (Corrected) 10.2 mg/dL (8.5-10.1); Carbon Dioxide 20.0 mMol/L (20.0-31.0); Chloride 96 mMol/L (98-107); Creatinine (Component) 1.4 mg/dL (0.6-1.3); Globulin 2.8 gm/dL (2.3-3.5); Glucose 104 mg/dL (74-106); Lipase 60 U/L (12-53); Osmolality,Calculated 256 (275-295); Potassium 4.4 mMol/L (3.4-5.1); Sodium 127 mMol/L (136-145); Total Protein 6.8 gm/dL (5.7-8.2); Troponin I < 0.020 ng/mL (0.0-0.045); eGFR 39 See Note
[2025-04-22 18:36] LABS: Bilirubin,Urine Negative (Negative); Blood,Urine Negative (Negative); Clarity,Urine Clear (Clear/Hazy); Color,Urine Lt-Yellow (Lt Yel-Yel); Glucose, Urine Negative (Negative); Ketones,Urine Negative (Negative); Leukocyte Esterase,Urine Negative (Negative); Nitrite,Urine Negative (Negative); PH,Urine 5.5 (5.0-7.0); Protein,Urine Negative (Neg - Trace); RBC,Urine 1 /hpf (0-3); Specific Gravity,Urine 1.011 (1.001-1.035); Squamous Epithelial Cell,Urine 1 /hpf (0-5); Urobilinogen,Urine Negative mg/dL (0.0-1.0); WBC,Urine 7 /hpf (0-5)
--- NOTE | 2025-04-22 20:06 | PD.EDADULT ---
ED General RME/HPI General Chief complaint: General Adult/Misc Complain Stated complaint: LOW SODIUM, 125; SENT BY [facility] Time Seen by Provider: 04/22/25 17:23 Arrival date/time: 04/22/25 17:09 RME / HPI RME / HPI narrative: 04/22/25 17:09 80 y/o female with PMHx of Metastatic cholangiocarcinoma who comes in for an evaluation after being sent from the cancer center after she was found to have low sodium. Patient reports that she is also been dealing with some itching for the past week that has been worsening. She also tried Ativan for short period of time, however was switched to hydroxyzine for those symptoms. She denies any recent changes to her laundry detergent, new substances in the house, new types of clothing, and denies any noticeable rashes. Says the itching is diffusely everywhere. She says she feels weak at baseline. Her oncologist is Dr. Austin. She denies any chest pain, shortness of breath, nausea, vomiting, numbness, tingling or confusion. No other complaints at this time. Related Data Home Medications ?Medication ?Instructions ?Recorded ?Confirmed magnesium 250 mg tablet 250 mg PO QDAY 10/08/24 10/08/24 ondansetron HCl 8 mg tablet 8 mg PO .PRN 10/08/24 10/08/24 potassium chloride 20 mEq 20 meq PO QDAY 10/08/24 10/08/24 tablet,extended release prochlorperazine maleate 10 mg 10 mg PO QDAY PRN 10/08/24 10/08/24 capsule,extended release sodium bicarbonate 325 mg tablet 325 mg PO BID 10/08/24 10/08/24 Previous Rx's ?Medication ?Instructions ?Recorded cefdinir 300 mg capsule 300 mg PO BID #14 caps 03/27/25 prednisone 20 mg tablet 20 mg PO BID 3 days #6 tabs 04/22/25 Allergies Allergy/AdvReac Type Severity Reaction Status Date / Time ciprofloxacin Allergy Severe HIVES Verified 04/22/25 17:11 lactose Allergy Intermediate Diarrhea Verified 04/22/25 17:11 latex Allergy Intermediate Hives Verified 04/22/25 17:11 adhesive tape Allergy Mild Hives Verified 04/22/25 17:11 Review of Systems Review of Systems Narrative Review of Systems: 12 point ROS reviewed and is otherwise negative unless stated directly in the HPI ED Exam Narrative Physical exam: General: AAOx3, NAD, elderly female, wearing mask, in wheel chair, has blanket on HEENT: Moist mucous membranes, conjunctiva clear, EOMI, PERRLA, Cardiovascular: S1, S2, radial pulses +2 bilat, RRR Pulmonary: CTAB bilat no cough, no wheezing GI: No tenderness to light or deep palpitation, no guarding, rigidity, rebound tenderness or distension Extremities: No presence of trace or pitting edema in lower extremities bilaterally, dorsalis pedis pulses +2 bilaterally Neuro: AAOx3, no focal motor or sensory deficits in the UE or LE bilat Psych: Good judgement, thought and behavior Course Quality Measures none Orders Category Date Time Status EKG (ED ONLY) *Do not use* NOW Care 04/22/25 17:28 Completed Encourage Fluid Intake NOW Care 04/22/25 20:03 Active EKG (ED Only) Stat Exams 04/22/25 17:28 Draft CBC Stat Lab 04/22/25 17:37 Completed Comprehensive Metabolic Panel Stat Lab 04/22/25 17:37 Completed Lipase Stat Lab 04/22/25 17:37 Completed Troponin I Stat Lab 04/22/25 17:37 Completed Urinalysis Stat Lab 04/22/25 18:05 Completed hydrOXYzine HCL [Atarax] Med 04/22/25 20:04 Discontinued 25 mg PO X1 ONE predniSONE Med 04/22/25 20:00 Discontinued 40 mg PO X1 ONE Vital Signs Vital signs: Vital Signs Temperature 99.0 F 04/22/25 17:17 Pulse Rate 89 04/22/25 17:17 Respiratory Rate 18 04/22/25 17:17 Blood Pressure 162/90 H 04/22/25 17:17 Pulse Oximetry (%) 99 04/22/25 17:17 Oxygen Delivery Method Room Air 04/22/25 17:17 Discharge Plan Plan Patient Disposition: HOME (Self Care) Prescriptions/Referrals Prescriptions/Med Rec: New prednisone 20 mg tablet 20 mg PO BID 3 Days Qty: 6 0RF Rx Instructions: Take one tablet by mouth twice a day No Action prochlorperazine maleate 10 mg capsule, extended release 10 mg PO QDAY PRN ondansetron HCl 8 mg tablet 8 mg PO .PRN sodium bicarbonate 325 mg tablet 325 mg PO BID magnesium 250 mg tablet 250 mg PO QDAY potassium chloride 20 mEq tablet extended release 20 meq PO QDAY cefdinir 300 mg capsule 300 mg PO BID Qty: 14 0RF Referrals: Félix Delgado MD [Primary Care Provider, Nephrology] - In 1 week Problem List Clinical Impression: Dehydration Patient/Caregiver Discharge Instructions Print Language: Mongolian Stand Alone Forms: Sandra Award Info., Patient Portal Info Letter MDM Narrative MDM hospital course (for use when minimal MDM required): 2010: Patient examined at bedside, I do not feel that the patient needs IV resuscitation at this time. She does not appear to be severely clinically dry, and will improve with increased oral hydration with encouragement. For her itchiness, her BUN levels are appropriate at this time, however this patient could have increased symptoms due to history of metastatic cholangiocarcinoma. I will administer home dose of hydroxyzine in addition to giving her a short course of prednisone despite this may put her at increased risk for infection. This was communicated with the patient as well. She does not appear to have ROSI at this time as her baseline creatinine is 1.4 which is where it is at today. Her lipase is 60 which is slightly elevated, however has been elevated in the past however she is not complaining of abdominal pain at this time, therefore I will hold on further workup at this time. My working diagnosis at this time is dehydration and itchiness as a secondary symptom of metastatic cholangiocarcinoma. With her sodium level of 125 that was initially drawn earlier and is increasing at 127 without IV, she can follow-up outpatient with her compliance examiner and primary care doctor, Dr. Delgado. Patient can be medically cleared for discharge at this time. Medication Administration(s) Medication Administration History Discontinued Medications Hydroxyzine HCl (Hydroxyzine Hcl 25 Mg Tablet) 25 mg PO X1 ONE Stop: 04/22/25 20:05 Prednisone (Prednisone 20 Mg Tablet) 40 mg PO X1 ONE Stop: 04/22/25 20:01 Diagnosis Diagnoses ruled out and/or further discussions: Dehydration, pruritus secondary to liver cancer, generalized weakness
[2025-04-22 20:41] VITALS: BP 118/77; PULSE 78
== END 2025-04-22 20:42 | disposition home or self-care (01) ==
PROVIDERS: Emergency Provider Nurse Practitioner Family; PCP Internal Medicine
DX: E86.0 Dehydration (principal)
CPT/HCPCS: 36415; 80053; 81001; 83690; 84484; 85025; 93005; 99284; J7512; A9270

== ENCOUNTER 2025-05-07 08:42 | Outpatient (RCR) | payer MEDICARE, SELFPAY ==
[2025-04-22 12:24] LABS: Misc Send Out* See Sep Rpt
[2025-04-22 12:38] LABS: Basophils # (Auto) 0.1 Thou/mm3 (0.0-0.2); Basophils % (Auto) 1 % (0-2.5); Eosinophils # (Auto) 0.2 Thou/mm3 (0.0-0.5); Eosinophils % (Auto) 3 % (0-10); Hematocrit 28.9 % (36.0-46.0); Hemoglobin 9.9 g/dL (12.0-16.0); Immature Granulocytes Auto 0.02 Thou/mm3 (0.00-0.00); Lymphocytes # (Auto) 1.4 Thou/mm3 (1.0-4.8); Lymphocytes % (Auto) 19 % (10-50); Mean Corpuscular HGB Conc 34.3 g/dl (31.0-37.0); Mean Corpuscular Hemoglobin 34.0 pg (25.0-35.0); Mean Corpuscular Volume 99 fL (80-100); Monocytes # (Auto) 0.9 Thou/mm3 (0.0-0.8); Monocytes % (Auto) 13 % (0-12); Neutrophils # (Auto) 4.7 Thou/mm3 (1.8-7.7); Neutrophils % (Auto) 64 % (37-80); Nucleated Red Blood Cell # 0.00 Thou/mm3 (0.00-0.00); Nucleated Red Blood Cell % 0 /100 WBC (0); Platelet Count 229 Thou/mm3 (140-440); RDW Standard Deviation 63.7 fL (36.4-46.3); Red Blood Count 2.91 Miln/mm3 (4.00-5.20); White Blood Count 7.3 Thou/mm3 (3.6-11.0)
[2025-04-22 12:51] LABS: Carcinoembryonic Antigen 5.2 ng/mL (0.0-5.0)
[2025-04-22 12:53] LABS: Alanine Aminotransferase 13 U/L (10-49); Albumin, Serum 4.2 gm/dL (3.4-4.8); Albumin/Globulin Ratio 1.4 (1.2-2.2); Alkaline Phosphatase 127 U/L (46-116); Anion Gap 11 (7-16); Aspartate Amino Transferase 63 U/L (0-34); BUN/Creatinine Ratio 15 Ratio (12-20); Bilirubin,Total 0.8 mg/dL (0.3-1.2); Blood Urea Nitrogen 19 mg/dL (9-23); Calcium 10.7 mg/dL (8.3-10.6); Calcium (Corrected) 10.7 mg/dL (8.5-10.1); Carbon Dioxide 18.6 mMol/L (20.0-31.0); Chloride 95 mMol/L (98-107); Creatinine (Component) 1.3 mg/dL (0.6-1.3); Globulin 3.0 gm/dL (2.3-3.5); Glucose 94 mg/dL (74-106); Osmolality,Calculated 253 (275-295); Potassium 4.4 mMol/L (3.4-5.1); Sodium 125 mMol/L (136-145); Total Protein 7.2 gm/dL (5.7-8.2); eGFR 42 See Note
[2025-04-23 09:59] LABS: Alanine Aminotransferase 14 U/L (10-49); Albumin, Serum 3.9 gm/dL (3.4-4.8); Albumin/Globulin Ratio 1.3 (1.2-2.2); Alkaline Phosphatase 133 U/L (46-116); Anion Gap 10 (7-16); Aspartate Amino Transferase 55 U/L (0-34); BUN/Creatinine Ratio 15 Ratio (12-20); Bilirubin,Total 0.7 mg/dL (0.3-1.2); Blood Urea Nitrogen 17 mg/dL (9-23); Calcium 9.8 mg/dL (8.3-10.6); Calcium (Corrected) 9.9 mg/dL (8.5-10.1); Carbon Dioxide 18.0 mMol/L (20.0-31.0); Chloride 98 mMol/L (98-107); Creatinine (Component) 1.1 mg/dL (0.6-1.3); Globulin 2.9 gm/dL (2.3-3.5); Glucose 148 mg/dL (74-106); Osmolality,Calculated 257 (275-295); Potassium 4.6 mMol/L (3.4-5.1); Sodium 126 mMol/L (136-145); Total Protein 6.8 gm/dL (5.7-8.2); eGFR 51 See Note
[2025-05-06 15:21] LABS: Collection Type, Urine Clean Catch
[2025-05-06 15:32] LABS: Basophils # (Auto) 0.0 Thou/mm3 (0.0-0.2); Basophils % (Auto) 1 % (0-2.5); Eosinophils # (Auto) 0.1 Thou/mm3 (0.0-0.5); Eosinophils % (Auto) 2 % (0-10); Hematocrit 24.3 % (36.0-46.0); Immature Granulocytes Auto 0.01 Thou/mm3 (0.00-0.00); Lymphocytes # (Auto) 1.1 Thou/mm3 (1.0-4.8); Lymphocytes % (Auto) 30 % (10-50); Mean Corpuscular HGB Conc 35.0 g/dl (31.0-37.0); Mean Corpuscular Hemoglobin 35.4 pg (25.0-35.0); Mean Corpuscular Volume 101 fL (80-100); Monocytes # (Auto) 0.4 Thou/mm3 (0.0-0.8); Monocytes % (Auto) 10 % (0-12); Neutrophils # (Auto) 2.1 Thou/mm3 (1.8-7.7); Neutrophils % (Auto) 57 % (37-80); Nucleated Red Blood Cell # 0.00 Thou/mm3 (0.00-0.00); Nucleated Red Blood Cell % 0 /100 WBC (0); Platelet Count 105 Thou/mm3 (140-440); RDW Standard Deviation 59.4 fL (36.4-46.3); Red Blood Count 2.40 Miln/mm3 (4.00-5.20); White Blood Count 3.7 Thou/mm3 (3.6-11.0)
[2025-05-06 15:43] LABS: Bacteria,Urine Rare; Bilirubin,Urine Negative (Negative); Blood,Urine 1+ (Negative); Color,Urine Yellow (Lt Yel-Yel); Glucose, Urine Negative (Negative); Ketones,Urine Negative (Negative); Leukocyte Esterase,Urine Positive (Negative); Nitrite,Urine Positive (Negative); PH,Urine 5.5 (5.0-7.0); Protein,Urine 1+ (Neg - Trace); RBC,Urine 2 /hpf (0-3); Specific Gravity,Urine 1.014 (1.001-1.035); Squamous Epithelial Cell,Urine 2 /hpf (0-5); Urobilinogen,Urine Negative mg/dL (0.0-1.0); WBC,Urine 1818 /hpf (0-5)
[2025-05-06 15:46] LABS: Alanine Aminotransferase 14 U/L (10-49); Albumin, Serum 3.9 gm/dL (3.4-4.8); Albumin/Globulin Ratio 1.7 (1.2-2.2); Alkaline Phosphatase 100 U/L (46-116); Anion Gap 12 (7-16); Aspartate Amino Transferase 53 U/L (0-34); BUN/Creatinine Ratio 16 Ratio (12-20); Bilirubin,Total 0.5 mg/dL (0.3-1.2); Blood Urea Nitrogen 22 mg/dL (9-23); Calcium 9.0 mg/dL (8.3-10.6); Calcium (Corrected) 9.1 mg/dL (8.5-10.1); Carbon Dioxide 20.6 mMol/L (20.0-31.0); Chloride 106 mMol/L (98-107); Creatinine (Component) 1.4 mg/dL (0.6-1.3); Globulin 2.3 gm/dL (2.3-3.5); Glucose 119 mg/dL (74-106); Osmolality,Calculated 281 (275-295); Potassium 3.5 mMol/L (3.4-5.1); Sodium 139 mMol/L (136-145); Total Protein 6.2 gm/dL (5.7-8.2); eGFR 39 See Note
[2025-05-06 15:48] LABS: Carcinoembryonic Antigen 6.7 ng/mL (0.0-5.0)
[2025-05-06 15:50] LABS: Clarity,Urine Turbid (Clear/Hazy); Culture Indicated,Urine Yes
[2025-05-06 16:05] LABS: Hemoglobin 8.5 g/dL (12.0-16.0)
== END 2025-05-17 23:59 | disposition home or self-care (01) ==
LOC: SCTC 08:42
PROVIDERS: PCP Internal Medicine; Referring Provider Internal Medicine; Visit Provider Internal Medicine Hematology & Oncology
DX: Z51.11 Encounter for antineoplastic chemotherapy (principal); C22.1 Intrahepatic bile duct carcinoma; G89.3 Neoplasm related pain (acute) (chronic)
CPT/HCPCS: 36591; 80053; 81001; 81232; 82378; 85025; 87077; 87086; 87186; 96360; 96367; 96368; 96409; 96411; 96413; 96415; 96416; A4216; J0640; J1100; J1434; J1642; J2405; J3490; J7030; J7040; J7050; J7060; J9190; J9263

== ENCOUNTER 2025-06-12 10:31 | Outpatient (RCR) | payer MEDICARE, SELFPAY ==
[2025-05-20 16:19] LABS: Basophils # (Auto) 0.0 Thou/mm3 (0.0-0.2); Basophils % (Auto) 0 % (0-2.5); Eosinophils # (Auto) 0.1 Thou/mm3 (0.0-0.5); Eosinophils % (Auto) 1 % (0-10); Hematocrit 25.3 % (36.0-46.0); Immature Granulocytes Auto 0.11 Thou/mm3 (0.00-0.00); Lymphocytes # (Auto) 1.0 Thou/mm3 (1.0-4.8); Lymphocytes % (Auto) 8 % (10-50); Mean Corpuscular HGB Conc 32.8 g/dl (31.0-37.0); Mean Corpuscular Hemoglobin 34.0 pg (25.0-35.0); Mean Corpuscular Volume 104 fL (80-100); Monocytes # (Auto) 1.5 Thou/mm3 (0.0-0.8); Monocytes % (Auto) 13 % (0-12); Neutrophils # (Auto) 9.1 Thou/mm3 (1.8-7.7); Neutrophils % (Auto) 77 % (37-80); Nucleated Red Blood Cell # 0.00 Thou/mm3 (0.00-0.00); Nucleated Red Blood Cell % 0 /100 WBC (0); Platelet Count 163 Thou/mm3 (140-440); RDW Standard Deviation 63.1 fL (36.4-46.3); Red Blood Count 2.44 Miln/mm3 (4.00-5.20); White Blood Count 11.8 Thou/mm3 (3.6-11.0)
[2025-05-20 16:23] LABS: Hemoglobin 8.3 g/dL (12.0-16.0)
[2025-05-20 16:24] LABS: Alanine Aminotransferase 10 U/L (10-49); Albumin, Serum 3.4 gm/dL (3.4-4.8); Albumin/Globulin Ratio 1.4 (1.2-2.2); Alkaline Phosphatase 132 U/L (46-116); Anion Gap 12 (7-16); Aspartate Amino Transferase 64 U/L (0-34); BUN/Creatinine Ratio 14 Ratio (12-20); Bilirubin,Total 0.7 mg/dL (0.3-1.2); Blood Urea Nitrogen 25 mg/dL (9-23); Calcium 8.4 mg/dL (8.3-10.6); Calcium (Corrected) 8.9 mg/dL (8.5-10.1); Carbon Dioxide 21.3 mMol/L (20.0-31.0); Chloride 99 mMol/L (98-107); Creatinine (Component) 1.8 mg/dL (0.6-1.3); Globulin 2.4 gm/dL (2.3-3.5); Glucose 155 mg/dL (74-106); Osmolality,Calculated 271 (275-295); Potassium 3.7 mMol/L (3.4-5.1); Sodium 132 mMol/L (136-145); Total Protein 5.8 gm/dL (5.7-8.2); eGFR 28 See Note
[2025-05-20 16:31] LABS: Carcinoembryonic Antigen 4.2 ng/mL (0.0-5.0)
[2025-06-07 11:55] LABS: Basophils # (Auto) 0.0 Thou/mm3 (0.0-0.2); Basophils % (Auto) 1 % (0-2.5); Eosinophils # (Auto) 0.2 Thou/mm3 (0.0-0.5); Eosinophils % (Auto) 4 % (0-10); Hematocrit 27.4 % (36.0-46.0); Hemoglobin 9.0 g/dL (12.0-16.0); Immature Granulocytes Auto 0.02 Thou/mm3 (0.00-0.00); Lymphocytes # (Auto) 1.2 Thou/mm3 (1.0-4.8); Lymphocytes % (Auto) 21 % (10-50); Mean Corpuscular HGB Conc 32.8 g/dl (31.0-37.0); Mean Corpuscular Hemoglobin 34.5 pg (25.0-35.0); Mean Corpuscular Volume 105 fL (80-100); Monocytes # (Auto) 0.8 Thou/mm3 (0.0-0.8); Monocytes % (Auto) 14 % (0-12); Neutrophils # (Auto) 3.3 Thou/mm3 (1.8-7.7); Neutrophils % (Auto) 60 % (37-80); Nucleated Red Blood Cell # 0.00 Thou/mm3 (0.00-0.00); Nucleated Red Blood Cell % 0 /100 WBC (0); Platelet Count 234 Thou/mm3 (140-440); RDW Standard Deviation 59.0 fL (36.4-46.3); Red Blood Count 2.61 Miln/mm3 (4.00-5.20); White Blood Count 5.5 Thou/mm3 (3.6-11.0)
[2025-06-07 12:13] LABS: Alanine Aminotransferase 10 U/L (10-49); Albumin, Serum 3.9 gm/dL (3.4-4.8); Albumin/Globulin Ratio 1.9 (1.2-2.2); Alkaline Phosphatase 142 U/L (46-116); Anion Gap 11 (7-16); Aspartate Amino Transferase 60 U/L (0-34); BUN/Creatinine Ratio 12 Ratio (12-20); Bilirubin,Total 0.5 mg/dL (0.3-1.2); Blood Urea Nitrogen 14 mg/dL (9-23); Calcium 9.3 mg/dL (8.3-10.6); Calcium (Corrected) 9.4 mg/dL (8.5-10.1); Carbon Dioxide 22.6 mMol/L (20.0-31.0); Chloride 103 mMol/L (98-107); Creatinine (Component) 1.2 mg/dL (0.6-1.3); Globulin 2.1 gm/dL (2.3-3.5); Glucose 132 mg/dL (74-106); Osmolality,Calculated 276 (275-295); Potassium 3.4 mMol/L (3.4-5.1); Sodium 137 mMol/L (136-145); Total Protein 6.0 gm/dL (5.7-8.2); eGFR 46 See Note
[2025-06-07 12:16] LABS: Carcinoembryonic Antigen 4.2 ng/mL (0.0-5.0)
== END 2025-06-16 23:59 | disposition home or self-care (01) ==
LOC: SCTC 10:31
PROVIDERS: PCP Internal Medicine; Referring Provider Internal Medicine; Visit Provider Internal Medicine Hematology & Oncology
DX: Z51.11 Encounter for antineoplastic chemotherapy (principal); C22.1 Intrahepatic bile duct carcinoma; G89.3 Neoplasm related pain (acute) (chronic)
CPT/HCPCS: 36591; 80053; 82378; 85025; 96365; 96367; 96368; 96413; 96415; 96416; 99211; A4216; J0640; J1100; J1434; J1642; J2405; J3490; J7050; J7060; J9190; J9263; G0463

== ENCOUNTER → 2025-06-20 | Outpatient (CLI) | payer MEDICARE, SELFPAY ==
--- NOTE | 2025-06-20 16:45 | XR_ITS ---
EXAMINATION: MRI brain post contrast TECHNIQUE: Multiple axial sagittal coronal brain MRI images post intravenous administration 13 cc gadolinium Date and time: June 20, 2025, 1714 hours, comparison brain MRI with and without contrast August 22, 2024, CT chest April 18, 2025 INDICATIONS: Diagnosis liver cancer diagnosis June 2023, staging FINDINGS: Ventricles are normal in size and configuration. No mass effect upon the ventricular system. No effacement cortical sulci Cerebellar tonsils normal position Fourth ventricle midline No abnormal enhancing cerebellar or cerebral lesions Enhancing right mastoid air cells, right mastoiditis Pituitary is not enlarged No displacement of the optic chiasm IMPRESSION: No abnormal enhancing cerebellar or cerebral lesions
== END | disposition home or self-care (01) ==
LOC: SMRI 16:39
PROVIDERS: PCP Internal Medicine; Referring Provider Internal Medicine Hematology & Oncology; Visit Provider Internal Medicine Hematology & Oncology
DX: C78.7 Secondary malignant neoplasm of liver and intrahepatic bile duct (principal)
CPT/HCPCS: 70552; A9577

== ENCOUNTER 2025-07-05 09:11 | Outpatient (RCR) | payer MEDICARE, SELFPAY ==
--- NOTE | 2025-06-20 08:54 | CTCFLWUP_ITS ---
[facility] [address] [place], [place] [address] FOLLOW-UP NOTE Date: 06/20/2025 MR#: [id number] Name: NAKIA GARCIA : 1945 Dx: C78.7 Secondary malignant neoplasm of liver and intrahepatic bile duct Identification. Patient with cholangiocarcinoma with liver mets. Receiving chemo under Dr. Carlson's direction. Previously on Xeloda now receiving IV chemo. Recent Signatera + 06/06/2025 Has been prescribed oxycodone 5 mg 1-2 every 6 which helped patient which I renewed. Laxatives recommended cures website checked. I will see her again in 3 months for pain management. Electronically signed by: Mauricio Chapman M.D. 06/20/2025 8:52 AM
[2025-06-21 11:33] LABS: Basophils # (Auto) 0.0 Thou/mm3 (0.0-0.2); Basophils % (Auto) 0 % (0-2.5); Eosinophils # (Auto) 0.1 Thou/mm3 (0.0-0.5); Eosinophils % (Auto) 2 % (0-10); Hematocrit 25.7 % (36.0-46.0); Immature Granulocytes Auto 0.04 Thou/mm3 (0.00-0.00); Lymphocytes # (Auto) 1.1 Thou/mm3 (1.0-4.8); Lymphocytes % (Auto) 14 % (10-50); Mean Corpuscular HGB Conc 33.9 g/dl (31.0-37.0); Mean Corpuscular Hemoglobin 33.9 pg (25.0-35.0); Mean Corpuscular Volume 100 fL (80-100); Monocytes # (Auto) 1.0 Thou/mm3 (0.0-0.8); Monocytes % (Auto) 13 % (0-12); Neutrophils # (Auto) 5.3 Thou/mm3 (1.8-7.7); Neutrophils % (Auto) 70 % (37-80); Nucleated Red Blood Cell # 0.00 Thou/mm3 (0.00-0.00); Nucleated Red Blood Cell % 0 /100 WBC (0); Platelet Count 158 Thou/mm3 (140-440); RDW Standard Deviation 52.5 fL (36.4-46.3); Red Blood Count 2.57 Miln/mm3 (4.00-5.20); White Blood Count 7.5 Thou/mm3 (3.6-11.0)
[2025-06-21 11:52] LABS: Hemoglobin 8.7 g/dL (12.0-16.0)
[2025-06-21 11:55] LABS: Alanine Aminotransferase 15 U/L (10-49); Albumin, Serum 3.7 gm/dL (3.4-4.8); Albumin/Globulin Ratio 1.5 (1.2-2.2); Alkaline Phosphatase 180 U/L (46-116); Anion Gap 11 (7-16); Aspartate Amino Transferase 71 U/L (0-34); BUN/Creatinine Ratio 13 Ratio (12-20); Bilirubin,Total 0.4 mg/dL (0.3-1.2); Blood Urea Nitrogen 13 mg/dL (9-23); Calcium 9.1 mg/dL (8.3-10.6); Calcium (Corrected) 9.3 mg/dL (8.5-10.1); Carbon Dioxide 22.5 mMol/L (20.0-31.0); Carcinoembryonic Antigen 5.8 ng/mL (0.0-5.0); Chloride 106 mMol/L (98-107); Creatinine (Component) 1.0 mg/dL (0.6-1.3); Globulin 2.5 gm/dL (2.3-3.5); Glucose 121 mg/dL (74-106); Osmolality,Calculated 278 (275-295); Potassium 2.9 mMol/L (3.4-5.1); Sodium 139 mMol/L (136-145); Total Protein 6.2 gm/dL (5.7-8.2); eGFR 58 See Note
[2025-06-24 10:05] LABS: Alanine Aminotransferase 15 U/L (10-49); Albumin, Serum 3.5 gm/dL (3.4-4.8); Albumin/Globulin Ratio 1.4 (1.2-2.2); Alkaline Phosphatase 168 U/L (46-116); Anion Gap 11 (7-16); Aspartate Amino Transferase 67 U/L (0-34); BUN/Creatinine Ratio 11 Ratio (12-20); Bilirubin,Total 0.5 mg/dL (0.3-1.2); Blood Urea Nitrogen 10 mg/dL (9-23); Calcium 9.5 mg/dL (8.3-10.6); Calcium (Corrected) 9.9 mg/dL (8.5-10.1); Carbon Dioxide 24.1 mMol/L (20.0-31.0); Chloride 104 mMol/L (98-107); Creatinine (Component) 0.9 mg/dL (0.6-1.3); Globulin 2.5 gm/dL (2.3-3.5); Glucose 118 mg/dL (74-106); Osmolality,Calculated 277 (275-295); Potassium 3.1 mMol/L (3.4-5.1); Sodium 139 mMol/L (136-145); Total Protein 6.0 gm/dL (5.7-8.2); eGFR > 60 See Note
[2025-07-05 11:25] LABS: Basophils # (Auto) 0.0 Thou/mm3 (0.0-0.2); Basophils % (Auto) 1 % (0-2.5); Eosinophils # (Auto) 0.1 Thou/mm3 (0.0-0.5); Eosinophils % (Auto) 2 % (0-10); Hematocrit 28.8 % (36.0-46.0); Hemoglobin 9.7 g/dL (12.0-16.0); Immature Granulocytes Auto 0.03 Thou/mm3 (0.00-0.00); Lymphocytes # (Auto) 1.0 Thou/mm3 (1.0-4.8); Lymphocytes % (Auto) 21 % (10-50); Mean Corpuscular HGB Conc 33.7 g/dl (31.0-37.0); Mean Corpuscular Hemoglobin 33.6 pg (25.0-35.0); Mean Corpuscular Volume 100 fL (80-100); Monocytes # (Auto) 0.8 Thou/mm3 (0.0-0.8); Monocytes % (Auto) 17 % (0-12); Neutrophils # (Auto) 2.9 Thou/mm3 (1.8-7.7); Neutrophils % (Auto) 60 % (37-80); Nucleated Red Blood Cell # 0.00 Thou/mm3 (0.00-0.00); Nucleated Red Blood Cell % 0 /100 WBC (0); Platelet Count 139 Thou/mm3 (140-440); RDW Standard Deviation 54.5 fL (36.4-46.3); Red Blood Count 2.89 Miln/mm3 (4.00-5.20); White Blood Count 4.8 Thou/mm3 (3.6-11.0)
[2025-07-05 12:03] LABS: Alanine Aminotransferase 16 U/L (10-49); Albumin, Serum 3.7 gm/dL (3.4-4.8); Albumin/Globulin Ratio 1.4 (1.2-2.2); Alkaline Phosphatase 174 U/L (46-116); Anion Gap 12 (7-16); Aspartate Amino Transferase 75 U/L (0-34); BUN/Creatinine Ratio 9 Ratio (12-20); Bilirubin,Total 0.5 mg/dL (0.3-1.2); Blood Urea Nitrogen 11 mg/dL (9-23); Calcium 9.2 mg/dL (8.3-10.6); Calcium (Corrected) 9.4 mg/dL (8.5-10.1); Carbon Dioxide 28.0 mMol/L (20.0-31.0); Chloride 102 mMol/L (98-107); Creatinine (Component) 1.2 mg/dL (0.6-1.3); Globulin 2.6 gm/dL (2.3-3.5); Glucose 121 mg/dL (74-106); Osmolality,Calculated 283 (275-295); Potassium 2.8 mMol/L (3.4-5.1); Sodium 142 mMol/L (136-145); Total Protein 6.3 gm/dL (5.7-8.2); eGFR 46 See Note
[2025-07-05 12:06] LABS: Carcinoembryonic Antigen 5.6 ng/mL (0.0-5.0)
--- NOTE | 2025-07-24 15:55 | CTCFLWUP_ITS ---
Patient: NAKIA FIELD : 1945 Page 2 of 2 FOLLOW UP NOTE DATE OF SERVICE: 07/03/2025 NAME: NAKIA FIELD ACCOUNT: [id number] : 1945 AGE: 80 INTERVAL HISTORY: Patient was seen with her daughter in the clinic. Patient has been feeling more fatigued and tired. Patient was initially treated for her cholangiocarcinoma with cisplatin gemcitabine and maintenance durvalumab. Patient unfortunately progressed and at that time initially patient was very reluctant to continue any further chemotherapy as she understand her overall prognosis is poor. Patient was havi ng increasing pain and at that time patient agreed to take oral chemotherapy medicine and Xeloda was started. Patient had good response to Xeloda and had naterra showed decrease in CT DNA. Patient and her daughters have decided not to take further oral chemotherapy and requesting to do intravenous chemotherapy. Extensively discussed that patient is having a good response to oral chemotherapy with Xeloda and no side effects. I will start Ms. Field on intravenous chemotherapy as per patient and family request. Patient takes zrgvni-yrl-hqnih pain medications and for family do not take part in her ADLs. ONCOLOGY HISTORY: DIAGNOSIS: Secondary malignant neoplasm of liver and intrahepatic bile duct [ICD10] C78.7 Secondary malignant neoplasm of liver and intrahepatic bile duct [ICD10] C78.7 DATE OF DIAGNOSIS: 06/20/2023 PATHOLOGY: Cholangiocarcinoma STAGE/TNM: Locally advanced to the liver mets TREATMENT HISTORY: Care?Plan Start?Date Cycle Day Intent Durvalumab?maintenance?cholangiocarcinoma?regimen?2 07/26/2024 1 28 Maintenance mFOLFOX-6?-?5FU?400?+?2400?CIV,?LVR?400,OXALIplat?85?stomach 04/23/2025 1 14 Palliative Durvalumab,?cisplatin?and?gemcitabine?cholangiocarcinoma?regimen?1 12/07/2023 1 21 Palliative HISTORY OF PRESENT ILLNESS: 80-year-old female with 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 antacid Extra-Strength - 500 mg Twice a Day 2. furosemide - 20 mg 1 tab As directed 3. gabapentin - 100 mg 1 Capsule Every day before sleep 4. hydroxyzine HCl - 25 mg Daily 5. levothyroxine - 75 mcg 1 tab Daily 6. Lomotil - 2.5-0.025 mg 1 - 2 tab four times a day 7. Macrobid - 100 mg 1 Capsule Daily 8. magnesium - 250 mg 2 tab Daily 9. Norvasc - 5 mg Daily 10. oxycodone - 5 mg 1 tab q6 11. oxycodone-acetaminophen - 5-325 mg 1 tab 1 tab as needed every 8 hrs as needed for pain 12. pantoprazole - 40 mg 1 Daily 13. prochlorperazine - 10 mg 1 tab Daily 14. Renal-Aníbal - 0.8 mg 1 tab Daily 15. senna - 8.6 mg 2 tab Daily 16. sodium bicarbonate - 325 mg 1 tab Daily 17. sodium bicarbonate (antacid) - 325 mg tab As directed 18. Zofran - 8 mg 1 tab As needed Medications Last Reconciled by Jessica Lopez MD on 07/24/2025 ALLERGIES: ciprofloxacin REVIEW OF SYSTEMS: A complete 14-point review of systems was performed and is negative except as noted in interval history. PHYSICAL EXAMINATION: VITAL SIGNS: PAIN: 6 - Severe pain ECOG Performance Status: 2 - Symptomatic; ambulatory; capable of self-care; >50% of waking hrs. not in bed The patient appeared well-nourished, alert, and in no apparent distress LABORATORY DATA: I have personally reviewed and interpreted each of the patient?s relevant lab tests, abnormal findings are below: Date 07/09/25 07/22/25 ??WHITE?BLOOD?COUNT?(Thou/mm3) ? 6.6 ??RED?BLOOD?COUNT?(Miln/mm3) ? 3.01?L ??HEMOGLOBIN?(gm/dl) ? 10.0?L ??HEMATOCRIT?(%) ? 30.8?L ??PLATELET?COUNT?(Thou/mm3) ? 180 ??NEUTROPHILS?%,?AUTO?(%) ? 66 ??LYMPH?%,?AUTO?(%) ? 16 ??NEUTROPHILS,?AUTO?(Thou/mm3) ? 4.3 ??GLUCOSE,RANDOM?(mg/dL) ? 97 ??BLOOD?UREA?NITROGEN?(mg/dL) ? 12 ??CREATININE?(mg/dL) ? 1.20 ??SODIUM?(mmol/L) ? 136 ??POTASSIUM?(mmol/L) 4.1 3.5 ??CHLORIDE?(mmol/L) ? 97?L ??CrCl?(CandG)?(ml/min) ? 33.58 ??AST/SGOT?(Unit/L) ? 101?H ??ALT/SGPT?(Unit/L) ? 14 ??ALKALINE?PHOSPHATASE?(Unit/L) ? 185?H ??BILIRUBIN,?TOTAL?(mg/dL) ? 0.6 ??PROTEIN?TOTAL?(gm/dl) ? 6.5 ??ALBUMIN,?SERUM?(gm/dl) ? 3.6 ??GLOBULIN?(gm/dl) ? 2.9 ??ALBUMIN/GLOBULIN?RATIO ? 1.2 ??CALCIUM,?SERUM?(mg/dL) ? 10.4 ??CALCIUM?SERUM?(CORRECTED)?(mg/dL) ? 10.7?H ??CEA?(O*)?(ng/ml) ? 4.5 ASSESSMENT/PLAN: Metastatic cholangiocarcinoma Patient has many liver lesions and likely cause of her pain Patient was on palliative chemotherapy with capecitabine with a good results as shown in CT DNA Will change chemotherapy to FOLFOX Patient and family want aggressive chemotherapy to reduce pain from the cancer Patient says that her pain may be 4-5 but with pain medicine her pain is not persistent Extensively counseled patient and family and advised to follow-up with Dr. Chapman for pain medicines I have already ordered Ativan for patient to help sleep. Patient is sleeping better Patient and family have a lot of grief secondary to malignancy Advised referral to hospice Patient and family at this time want to pursue further aggressive therapy Will continue chemotherapy ORDERS: Order # Description [id number] Discontinue CIV Pump [id number] CBC + Comprehensive Metabolic Panel + [facility] [id number] Lab Appointment [id number] Follow Up Appointment [id number] Infusion 5 Hours [id number] Discontinue CIV Pump [id number] CBC + Comprehensive Metabolic Panel + [facility] [id number] Lab Appointment [id number] Follow Up Appointment [id number] Infusion 5 Hours [id number] Discontinue CIV Pump [id number] CBC + Comprehensive Metabolic Panel + [facility] [id number] Lab Appointment [id number] Follow Up Appointment [id number] Infusion 5 Hours [id number] Discontinue CIV Pump [id number] CBC + Comprehensive Metabolic Panel + [facility] [id number] Lab Appointment [id number] Follow Up Appointment [id number] Infusion 5 Hours [id number] Discontinue CIV Pump [id number] CBC + Comprehensive Metabolic Panel + [facility] [id number] Lab Appointment [id number] Follow Up Appointment [id number] Infusion 5 Hours [id number] Discontinue CIV Pump [id number] CBC + Comprehensive Metabolic Panel + [facility] [id number] Lab Appointment [id number] Follow Up Appointment [id number] Infusion 5 Hours [id number] Discontinue CIV Pump [id number] CBC + Comprehensive Metabolic Panel + [facility] [id number] Lab Appointment [id number] Follow Up Appointment RETURN TO CLINIC: I reviewed the diagnosis, prognosis, and recommended treatment/procedure options with the patient (and/or their legal guest services representative), including the potential benefits, risks, side effects and alternative therapies. We also discussed the option of no treatment and the possibility of clinical trial participation, if applicable. All questions were addressed, and they demonstrated understanding. They provided informed consent to proceed with the proposed plan of care. BILLING AND COMPLIANCE: I reviewed external records from providers outside my specialty as summarized above. I spent a total of 50 minutes on this patient?s care on the day of their visit excluding time spent related to any billed procedures. This time includes time spent with the patient as well as time spent documenting in the medical record, reviewing patients records and tests, obtaining history, placing orders, communicating with other healthcare professionals, counseling the patient, family or caregiver, and/or care coordination for the diagnoses above. Electronically Signed by: David Austin MD T: 3:52 PM CC: PCP: Félix Delgado Referring: Félix Delgado This document was completed utilizing speech recognition software. Grammatical errors, random word insertions, pronoun errors, and incomplete sentences are an occasional consequence of this system due to software limitations, ambient noise, and hardware issues. Any formal questions or concerns about the content, text or information contained within the body of this dictation should be directly addressed to the provider for clarification.
== END 2025-07-17 23:59 | disposition home or self-care (01) ==
LOC: SCTC 09:11
PROVIDERS: PCP Internal Medicine; Referring Provider Internal Medicine; Visit Provider Internal Medicine Hematology & Oncology
DX: Z51.11 Encounter for antineoplastic chemotherapy (principal); C22.1 Intrahepatic bile duct carcinoma; G89.3 Neoplasm related pain (acute) (chronic)
CPT/HCPCS: 36415; 36591; 80053; 82378; 85025; 96360; 96367; 96368; 96413; 96415; 96416; 96523; 99212; 99213; A4216; J0640; J1100; J1434; J1642; J2405; J3490; J7030; J7040; J7050; J7060; J9190; J9263; G0463

== ENCOUNTER 2025-07-08 20:13 | Emergency (ER) | payer MEDICARE, SELFPAY ==
[2025-07-08 20:15] VITALS: BMI 27.9
[2025-07-08 20:58] VITALS: BP 125/75; PULSE 92; RESP 18; TEMP 36.6; O2SAT 97
--- NOTE | 2025-07-08 21:30 | PD.EDRECHK ---
ED Recheck Abnl Lab Rx-RME/HPI General Chief Complaint: Recheck/Abnormal Lab/Rx Stated Complaint: LOW POTASSIUM, LAST CHEMO 2 WEEKS AGO Time Seen by Provider: 07/08/25 20:22 Arrival date/time: 07/08/25 20:13 80-year-old female with a history of malignant neoplasm of the liver, renal failure, hypokalemia is brought in by her daughter for recheck of potassium levels. Patient states on Tuesday her potassium level was 2.8 she has been taking the potassium pills as directed but her primary care provider advised her to have the levels checked before doing another round of chemo. Patient denies any shortness of breath chest pain nausea vomiting abdominal pain dizziness headache fever or chills. Limitations: no limitations Related Data Home Medications ?Medication ?Instructions ?Recorded ?Confirmed magnesium 250 mg tablet 250 mg PO QDAY 10/08/24 10/08/24 ondansetron HCl 8 mg tablet 8 mg PO .PRN 10/08/24 10/08/24 potassium chloride 20 mEq 20 meq PO QDAY 10/08/24 10/08/24 tablet,extended release prochlorperazine maleate 10 mg 10 mg PO QDAY PRN 10/08/24 10/08/24 capsule,extended release sodium bicarbonate 325 mg tablet 325 mg PO BID 10/08/24 10/08/24 Previous Rx's ?Medication ?Instructions ?Recorded cefdinir 300 mg capsule 300 mg PO BID #14 caps 03/27/25 cefdinir 300 mg capsule 300 mg PO BID #14 caps 07/09/25 Allergies Allergy/AdvReac Type Severity Reaction Status Date / Time ciprofloxacin Allergy Severe HIVES Verified 07/08/25 20:15 lactose Allergy Intermediate Diarrhea Verified 07/08/25 20:15 latex Allergy Intermediate Hives Verified 07/08/25 20:15 adhesive tape Allergy Mild Hives Verified 07/08/25 20:15 Review of Systems Constitutional Constitutional: Denies chills, Denies fever(s) and Denies headache(s) ENT Ears, Nose, Mouth, and Throat: Denies dizziness and Denies headache(s) Cardiovascular Cardiovascular: Denies chest pain and Denies dyspnea Respiratory Respiratory: Denies cough and Denies dyspnea Gastrointestinal Gastrointestinal: Denies nausea and Denies vomiting Musculoskeletal Musculoskeletal: Denies arthralgias and Denies back pain Neurologic Neurologic: Denies dizziness and Denies headache(s) Past Medical History Past Medical History NEUROLOGIC: Negative Neurological Disorders or Seizures CARDIAC: Positive Hypertension (takes medication); Negative Cardiac Disorders or Congestive Heart Failure RESPIRATORY: Negative Chronic Obstructive Pulmonary Disease (COPD) or Asthma GASTROINTESTINAL: Positive Gastrointestinal Disorders, Gall Bladder Disease and Hemorrhoids GENITOURINARY: Negative Genitourinary Disorders or Renal Disease MUSCULOSKELETAL: Positive Musculoskeletal Disorders and Arthritis ENT: Positive Cataracts and Deafness (left ear, no hearing aid) ENDOCRINE: Negative Endocrine Disorders, Diabetes Mellitus Type 1 or Diabetes Mellitus Type 2 HEMATOLOGIC: Negative Blood Disorders or Sickle Cell Disease OTHER HISTORY: Positive Cancer (liver cancer); Negative Blood Transfusions, Blood Transfusion Reaction, Anesthesia Reactions, Chemotherapy or Radiation Therapy Surgical History SURGICAL: Positive Eye Surgery, Abdominal Surgery and Hysterectomy (1975); Negative Cardiac Surgery, Pacemaker or Endocrine Surgery Social History SMOKING STATUS: Never smoker ED Exam General Limitations: Present no limitations General appearance: Present alert and in no apparent distress Eye Eye exam: Present normal appearance, PERRL and EOMI Chest Chest inspection: Present normal inspection and symmetric chest wall rise Respiratory Respiratory exam: Present normal lung sounds bilaterally Cardiovascular Cardiovascular exam: Present regular rate, normal rhythm and normal heart sounds Abdominal Exam Abdominal exam: Present soft and normal bowel sounds Extremities Exam Extremities exam: Present normal inspection and full ROM Back Exam Back exam: Present normal inspection and full ROM Neurological Exam Neurological exam: Present alert, oriented X3 and CN II-XII intact Psychiatric Psychiatric exam: Present normal affect and normal mood Skin Skin exam: Present warm, dry, intact and normal color Course Course Course Narrative: 80-year-old female with a history of malignant neoplasm of the liver, renal failure, hypokalemia is brought in by her daughter for recheck of potassium levels. Potassium today was 2.8.We replinished with 40 meq IV K+ with NS. Quality Measures none Orders Category Date Time Status EKG (ED ONLY) *Do not use* NOW Care 07/09/25 00:21 Completed IV [Insert IV] NOW Care 07/09/25 00:05 Completed EKG (ED Only) Stat Exams 07/09/25 00:21 Draft CMP [Comprehensive Metabolic Panel] Stat Lab 07/08/25 21:52 Completed Magnesium Stat Lab 07/08/25 21:52 Completed Potassium Stat Lab 07/09/25 02:03 Completed Potassium Stat Lab 07/09/25 05:08 Completed UA, C/S IF [Urinalysis, C/S if Indicated] Stat Lab 07/09/25 01:32 Completed Urine Culture Stat Lab 07/09/25 01:32 Completed POTASSIUM CHL 10 mEq IVPB [Kcl Ivpb] Med 07/08/25 22:56 Discontinued 10 meq in 100 ml IV Q1H POTASSIUM CHL 10% Liq 15 ML Med 07/09/25 01:03 Discontinued 40 meq PO X1 ONE POTASSIUM CHL 10% Liq 15 ML Med 07/09/25 03:20 Discontinued 40 meq PO X1 ONE Sodium Chloride 0.9% 1000 ml [Ns] 1,000 ml Med 07/08/25 23:19 Discontinued IV 500 mls/hr Sodium Chloride 0.9% 500 ml [Ns] 500 ml Med 07/08/25 23:50 Discontinued IV 125 mls/hr cefTRIAXone/D5w 1gm IV premix [Rocephin/D5w 1gm IV Med 07/09/25 03:08 Discontinued premix] 1 gm in 50 ml IV X1 Vital Signs Vital signs: Vital Signs Temperature 97.8 F 07/08/25 20:58 Pulse Rate 92 07/08/25 20:58 Respiratory Rate 18 07/08/25 20:58 Blood Pressure 125/75 07/08/25 20:58 Pulse Oximetry (%) 97 07/08/25 20:58 Oxygen Delivery Method Room Air 07/08/25 20:58 Recheck / Abnormal Lab / Rx Patient data External records reviewed:: [facility] previous records Clinical information provided by:: patient Social determinants that could affect healthcare access:: none Patient has the following chronic illnesses:: Cancer How is presenting disease/condition affected by chronic disease/condition?: exacerbated by Evaluation data The following diagnostics were reviewed and interpreted by me:: lab results and EKG tracing(s) (NSR (83 bpm)) Lab and/or radiology exams considered but not ordered:: none Interpretation Summary: Blood tests remarkable for K 2.8. UA showed leukocyte esterase, 292 WBC, and 1+ Bacteria. Medications / Prescriptions Medications or Prescriptions considered but not ordered:: none Medication administrations:: Medication Administration History Discontinued Medications Potassium Chloride (Kcl Ivpb) 10 meq in 100 mls @ 100 mls/hr IV Q1H HO Stop: 07/09/25 02:55 Last Admin: 07/09/25 05:12 Dose: Not Given Documented By: SONDRA Non-Admin Reason: Cancelled by Provider Infusion: 07/09/25 04:42 Dose: Infused Documented By: Admin: 07/09/25 03:37 Dose: 100 mls/hr Documented By: Infusion: 07/09/25 03:29 Dose: Infused Documented By: Admin: 07/09/25 02:29 Dose: 100 mls/hr Documented By: Infusion: 07/09/25 02:00 Dose: Infused Documented By: Admin: 07/09/25 00:36 Dose: 100 mls/hr Documented By: SONDRA Sodium Chloride (Ns) 1,000 mls @ 500 mls/hr IV .Q2H ONE Stop: 07/09/25 01:18 Last Admin: 07/08/25 23:51 Dose: Not Given Documented By: YGOI Non-Admin Reason: Cancelled by Provider Sodium Chloride (Ns) 500 mls @ 125 mls/hr IV .Q4H ONE Stop: 07/09/25 03:49 Last Infusion: 07/09/25 04:51 Dose: Infused Documented By: Admin: 07/09/25 00:36 Dose: 125 mls/hr Documented By: SONDRA Ceftriaxone Sodium/Dextrose (Rocephin/D5w 1gm Iv Premix) 1 gm in 50 mls @ 100 mls/hr IV X1 ONE Stop: 07/09/25 03:37 Last Infusion: 07/09/25 05:26 Dose: Infused Documented By: Admin: 07/09/25 04:47 Dose: 100 mls/hr Documented By: SONDRA Potassium Chloride (Potassium Chloride 10% 20 Meq/15 Ml Udc) 40 meq PO X1 ONE Stop: 07/09/25 01:04 Last Admin: 07/09/25 01:19 Dose: 40 meq Documented By: SONDRA Potassium Chloride (Potassium Chloride 10% 20 Meq/15 Ml Udc) 40 meq PO X1 ONE Stop: 07/09/25 03:21 Last Admin: 07/09/25 04:49 Dose: 40 meq Documented By: SONDRA Treatment here included: Oral and IV KCl Rocephin 1 gram IV Consultations Consultation(s) initiated? (list below): No Diagnosis Recheck Differential Diagnosis: other (Electrolyte abnormalities) Most likely diagnosis given after review of the tests above:: Hypokalemia UTI Admission Indicated Admission indicated?: not indicated Explain why admission is indicated or not indicated:: With significant improvement, there was no indication for admission. Admission Request Was there a request for admission?: No Disposition Plan Disposition Plan: Discharge Discharge Attestation Discharge Attestation: The patient and all family members were given an opportunity to ask questions and understood the discharge instructions. Discharge instructions specifically effects, indications for sooner follow up or return to the emergency department, and the expected course of current diagnosis. Patient condition: Stable Discharge Plan Plan Patient Disposition: HOME (Self Care) Prescriptions/Referrals Prescriptions/Med Rec: New cefdinir 300 mg capsule 300 mg PO BID Qty: 14 0RF No Action prochlorperazine maleate 10 mg capsule, extended release 10 mg PO QDAY PRN ondansetron HCl 8 mg tablet 8 mg PO .PRN sodium bicarbonate 325 mg tablet 325 mg PO BID magnesium 250 mg tablet 250 mg PO QDAY potassium chloride 20 mEq tablet extended release 20 meq PO QDAY cefdinir 300 mg capsule 300 mg PO BID Qty: 14 0RF Referrals: Félix Delgado MD [Primary Care Provider, Nephrology] - In 1 week Problem List Clinical Impression: Urinary tract infection, Hypokalemia Patient/Caregiver Discharge Instructions Discharge Activity: activity as tolerated Education Materials: ED Hypokalemia, ED CYSTITIS Female Adult Additional Instructions: Discharge instructions from Dr. Chapman: 1. After evaluation, you were treated for urine infection and low potassium level. 2. Take cefdinir to kill the germs causing the infection. 3. For good hydration, increase oral fluid and maintain clear urine. If dark or yellow, increase oral fluid. 4. Take your home potassium pill twice daily. 5. Your body doesn't absorb potassium from potassium pills that well. 6. So increase food rich in potassium. At minimum, eat banana twice daily. 7. See a private doctor on 07/12/25 for recheck. Ask to check the final urine culture results from today to make sure cefdinir doesn't need to be changed due to resistance. And asked to repeat potassium level. 8. Seek immediate medical care with worsening, fever, or with any concerns. Print Language: Maltese Stand Alone Forms: Sandra Award Info., Patient Portal Info Letter Attestation Attestation I took over the care from JUSTO Drew at _1AM_ on _07/09/25_. See previous notes for complete H & P and ED course. I reviewed all diagnostic test results. My interpretation of the EKG: NSR (83 bpm) with no ST-T changes. Blood tests remarkable for K 2.8. UA showed leukocyte esterase, 292 WBC, and 1+ bacteria. Diagnoses include: Hypokalemia UTI Treatment here included: IVF Rocephin 1 g IV KCl 10 meq IV X 3 Oral KCl 40 meq X 2 Significant improvement noted with K 4.1. Recommended outpatient follow-up. Based on my best medical judgment, made decision no further evaluation or treatment indicated at this time. Patient understands and agrees to the discharge instructions customized and printed, see below. Discharge instructions from Dr. Chapman: 1. After evaluation, you were treated for urine infection and low potassium level. 2. Take cefdinir to kill the germs causing the infection. 3. For good hydration, increase oral fluid and maintain clear urine. If dark or yellow, increase oral fluid. 4. Take your home potassium pill twice daily. 5. Your body doesn't absorb potassium from potassium pills that well. 6. So increase food rich in potassium. At minimum, eat banana twice daily. 7. See a private doctor on 07/12/25 for recheck. Ask to check the final urine culture results from today to make sure cefdinir doesn't need to be changed due to resistance. And asked to repeat potassium level. 8. Seek immediate medical care with worsening, fever, or with any concerns. Nathen Chapman MD
[2025-07-08 22:43] LABS: Alanine Aminotransferase 16 U/L (10-49); Albumin, Serum 3.5 gm/dL (3.4-4.8); Albumin/Globulin Ratio 1.2 (1.2-2.2); Alkaline Phosphatase 196 U/L (46-116); Anion Gap 10 (7-16); Aspartate Amino Transferase 87 U/L (0-34); BUN/Creatinine Ratio 11 Ratio (12-20); Bilirubin,Total 0.5 mg/dL (0.3-1.2); Blood Urea Nitrogen 14 mg/dL (9-23); Calcium 10.1 mg/dL (8.3-10.6); Calcium (Corrected) 10.5 mg/dL (8.5-10.1); Carbon Dioxide 28.9 mMol/L (20.0-31.0); Chloride 102 mMol/L (98-107); Creatinine (Component) 1.3 mg/dL (0.6-1.3); Estimated Creatinine Clearance 30.0 mL/min (>60); Globulin 3.0 gm/dL (2.3-3.5); Glucose 150 mg/dL (74-106); Osmolality,Calculated 284 (275-295); Potassium 2.8 mMol/L (3.4-5.1); Sodium 141 mMol/L (136-145); Total Protein 6.5 gm/dL (5.7-8.2); eGFR 42 See Note
[2025-07-08 23:15] LABS: Magnesium 2.1 mg/dL (1.6-2.6)
[2025-07-09 00:06] VITALS: BP 117/55; PULSE 89; RESP 17; TEMP 37.2; O2SAT 98
--- NOTE | 2025-07-09 00:21 | EKG_ITS ---
[facility] Test Date: 2025-07-09 Pat Name: NAKIA GARCIA Department: Room: - Gender: Female [employer] Super[employer]: : 1945 Requested By: Reed Hughes Order Number: [id number] Reading MD: Reed Hughes Measurements Intervals [place] Rate: 83 P: -3 PA: 168 QRS: -7 QRSD: 98 T: 29 QT: 368 QTc: 434 Interpretive Statements SINUS RHYTHM Compared to ECG 04/22/2025 17:37:20 No significant changes /store/S0/[id number].pdf
[2025-07-09] MEDS: POTASSIUM CHL 10 mEq IVPB 10 MEQ/100 ML BAG 100 MEQ IV ×3 (00:36→03:37)
[2025-07-09] MEDS: SODIUM CHLORIDE 0.9% 500 ML 500 ML 125 ML IV (00:36)
[2025-07-09] MEDS: POTASSIUM CHLORIDE 10% 20 MEQ/15 ML UDC 40 MEQ PO ×2 (01:19→04:49)
[2025-07-09 02:17] LABS: Collection Type, Urine Clean Catch
[2025-07-09 02:29] LABS: Potassium 3.1 mMol/L (3.4-5.1)
[2025-07-09 02:31] VITALS: BP 117/55; PULSE 82; RESP 17; TEMP 36.9; O2SAT 96
[2025-07-09 03:06] LABS: Amorphous Crystals,Urine Present (Absent); Bacteria,Urine 1+; Bilirubin,Urine Negative (Negative); Blood,Urine Negative (Negative); Clarity,Urine Turbid (Clear/Hazy); Color,Urine Yellow (Lt Yel-Yel); Culture Indicated,Urine Yes; Glucose, Urine Negative (Negative); Ketones,Urine Negative (Negative); Leukocyte Esterase,Urine Positive (Negative); Nitrite,Urine Negative (Negative); PH,Urine 6.0 (5.0-7.0); Protein,Urine Trace (Neg - Trace); RBC,Urine 3 /hpf (0-3); Specific Gravity,Urine 1.018 (1.001-1.035); Squamous Epithelial Cell,Urine 3 /hpf (0-5); Urobilinogen,Urine Negative mg/dL (0.0-1.0); WBC,Urine 292 /hpf (0-5)
[2025-07-09] MEDS: cefTRIAXone/D5w 1gm IV premix 1 GM/50 ML BAG IV (04:47)
[2025-07-09 05:02] VITALS: BP 110/60; PULSE 78; RESP 17; O2SAT 95
--- NOTE | 2025-07-09 05:12 | PC.NURSE ---
PER VERBAL ORDER FROM DR. GIL DO NOT GIVE FOURTH BAG OF POTASSIUM IV. PENDING REPEAT POTASSIUM LEVEL DRAW.
[2025-07-09 05:27] VITALS: BP 110/60; PULSE 87; RESP 18; TEMP 37.1; O2SAT 98
[2025-07-09 05:30] LABS: Potassium 4.1 mMol/L (3.4-5.1)
== END 2025-07-09 06:03 | disposition home or self-care (01) ==
PROVIDERS: Physician Assistant; Emergency Provider Emergency Medicine; PCP Internal Medicine
DX: E87.6 Hypokalemia (principal); N39.0 Urinary tract infection, site not specified; I12.9 Hypertensive chronic kidney disease with stage 1 through stage 4 chronic kidney disease, or unspecified chronic kidney disease; N18.9 Chronic kidney disease, unspecified
CPT/HCPCS: 36415; 80053; 81001; 83735; 84132; 87077; 87086; 87186; 93005; 96365; 96366; 96367; 99283; J0696; J3480; J7999; A9270

== ENCOUNTER → 2025-07-17 | Outpatient (CLI) | payer MEDICARE, SELFPAY ==
[2025-07-17] MEDS: HEPARIN SOD LOCK SYR 100 UNIT/ML 500 UNIT IV (11:00)
== END | disposition home or self-care (01) ==
PROVIDERS: PCP Internal Medicine; Referring Provider Internal Medicine Hematology & Oncology; Visit Provider Internal Medicine Hematology & Oncology
DX: C78.7 Secondary malignant neoplasm of liver and intrahepatic bile duct (principal)
CPT/HCPCS: J1642